=== PATIENT | male | born 1980 | race Caucasian/White ===

== ENCOUNTER 2021-01-27 11:11 | Emergency (ER) | payer MEDICARE ==
[2021-01-27] MEDS ORDERED: AMMONIA AROMATIC INHALANT STA (11:14)
[2021-01-27] MEDS ORDERED: NS 1,000 ML IV ONE (11:15)
[2021-01-27 11:29] LABS: BASO # 0.1 10^3/uL (0.0-0.2); BASO % 0.7 % (0.0-1.0); EOS # 0.8 10^3/uL (0.0-0.5); EOS % 8.2 % (0.0-3.0); HEMOGLOBIN 11.9 g/dl (13.5-17.5); LYMPH # 1.7 10^3/uL (1.5-5.0); LYMPH % 16.9 % (24.0-44.0); MEAN CORPUSCULAR HEMOGLOBIN 28.2 pg (27.0-33.0); MEAN CORPUSCULAR HGB CONC 32.2 g/dl (32.0-36.5); MEAN CORPUSCULAR VOLUME 87.7 fl (80.0-96.0); NEUTROPHILS # 6.4 10^3/uL (1.5-8.5); NEUTROPHILS % 63.5 % (36.0-66.0); PLATELET COUNT, AUTOMATED 218 10^3/uL (150-450); RED BLOOD COUNT 4.22 10^6/uL (4.30-6.10)
--- NOTE | 2021-01-27 11:33 | REP ---
INDICATION: altered ms. COMPARISON: None. TECHNIQUE: Single portable AP view of the chest was performed. FINDINGS: There is no acute infiltrate or pulmonary edema. Lungs are clear. The heart is upper limits of normal in size, not significantly enlarged. The mediastinal silhouette is unremarkable. The visualized osseous structures are intact. IMPRESSION: No acute pulmonary disease. <Electronically signed by Yaw Garcia > 01/27/21 1122
[2021-01-27 12:07] LABS: ALBUMIN 3.4 GM/DL (3.2-5.2); ALT/SGPT 18 U/L (12-78); BILIRUBIN,DIRECT 0.1 MG/DL (0.0-0.2); BILIRUBIN,TOTAL 0.4 MG/DL (0.2-1.0); BLOOD UREA NITROGEN 24 MG/DL (7-18); CALCIUM LEVEL 8.5 MG/DL (8.5-10.1); CARBON DIOXIDE LEVEL 29 MEQ/L (21-32); CHLORIDE LEVEL 105 MEQ/L (98-107); CK-MB VALUE MASS 3.2 NG/ML (<3.6); CPK CREATINE PHOSPHOKINASE 216 U/L (39-308); GLOMERULAR FILTRATION RATE > 60.0 (>60); GLUCOSE, FASTING 207 MG/DL (70-100); MB/CK RELATIVE INDEX 1.48 (< OR =4); POTASSIUM SERUM 4.3 MEQ/L (3.5-5.1); SODIUM LEVEL 141 MEQ/L (136-145); TOTAL PROTEIN 6.3 GM/DL (6.4-8.2); TROPONIN I < 0.02 NG/ML (< 0.10)
--- NOTE | 2021-01-27 12:10 | REP ---
INDICATION: Altered Mental Status. COMPARISON: None. TECHNIQUE: CT brain performed in the axial plane. Coronal reconstruction images are performed. FINDINGS: The ventricles are normal in size and position.. There is no midline shift or mass effect. Garcia-white differentiation is well maintained. There is no acute intracranial hemorrhage or extra-axial fluid collection. There is no fracture of the visualized osseous structures. There is mild air in the visualized superior left orbit. The visualized mastoid air cells and paranasal sinuses are clear. IMPRESSION: No acute intracranial hemorrhage, midline shift or mass effect. Mild air in the visualized superior left orbit. Correlate clinically for any trauma or inflammation of the left orbit. This finding can be caused by something as simple as blowing the nose. <Electronically signed by Yaw Garcia > 01/27/21 [id number]
--- OUTSIDE RECORDS SUMMARY | 2021-01-27 12:43 | CCD ---
Author Author [facility] Organization [facility] Address Unknown Phone Unavailable Care Team Providers Care Scanning Supervisor Name Role Phone Gonsalo Lopez Unavailable PROBLEMS Type Condition ICD9-CM Code [id number] Code Onset Dates Condition S tatus W/U Status Risk SNOMED Code Notes Problem Pure hypercholesterolemia E78.00 Active confirmed 171304046 Problem Moderate episode of recurrent major depressive disorder F33.1 Active confirmed 434854222 Problem Type 2 diabetes mellitus with diabetic chronic kidney disease E11.22 Active confirmed 007154441 Problem Allergy to local anesthetic Z88.4 Active confirmed 147049394 Problem Allergic rhinitis, unspecified seasonality, unspecifie d trigger J30.9 Active confirmed 12441383 Problem Oropharyngeal dysphagia R13.12 Active confirmed 00642512 Problem penitentiary current use of insulin Z79.4 Active conf irmed 187550986 Problem Vitamin D deficiency E55.9 Active confirmed 36324962 Problem Leukocytosis, unspecified type D72.829 Active confi rmed 719439093 Problem Diabetic 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 Active confirmed 79814377 Problem Neuropathy G62.9 Active confirmed 390267048 Problem Lumbar degenerative disc disease M51.36 Active conf irmed 58233278 Problem Urinary incontinence, unspecified type R32 A ctive confirmed 385919060 Problem Venous insufficiency of both lower extremities I87 .2 Active confirmed 482417824 Problem Diabetes E11.9 Active confirmed 196318525 Problem GERD without esophagitis K21.9 Active confirmed 845782467 Problem Pressure injury of buttock, stage 1, unspecified lateralit y L89.301 Active confirmed 32212106486437199 Problem Unspecified retinal disorder H35.9 Active confirme d 54775427 Problem Type 2 diabetes mellitus without complications E11 .9 Active confirmed 14765022 Problem Unspecified disorder of vitreous body H43.9 Ac tive confirmed 119138428 Problem Type 2 diabetes mellitus with hyperglycemia E11.65 Active confirmed 805508776630747 Problem Essential hypertension I10 Active confirmed 81481005 Problem Altered mental status, unspecified altered mental stat us type R41.82 Active confirmed 300349458 Problem Depression, unspecified depression type F32.9 Active confirmed 81356616 Problem Type 2 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.319 Active confirmed 994634036 Problem JAIME (obstructive sleep apnea) G47.33 Active confirm ed 92288734 ALLERGIES Allergen (clinical drug ingredient) Drug/Non Drug Allergy do cumented on EMR Reaction Allergy Type Onset Date Status gabapentin gabapentin(ND Code:[address]-27) Unknown Drug Allergy Active doxycycline Unknown Drug Allergy Active local anesthsia Unknown Non Drug Allergy Act catalina penicillin Unknown Drug Allergy Active codeine codeine(ND Code:[address]-03) Unknown Drug Allergy Active ENCOUNTERS from 1979 to 2021-01-06 Encounter Location Date Provider Diagnosis [facility] Micro Photographer [address] [place] [address] Dec, Gonsalo Lopez Type 2 diabetes adam itus with hyperglycemia E11.65 ; 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.4 and Type 2 diabetes mellitus with diabetic chronic kidney disease E11.22 IMMUNIZATIONS Vaccine Route Administration Date Status COVID-19 - EXTERNAL Unknown August 27, 2020 Administered Tdap IM Intramuscular Nov 05, 2018 Administered Influenza IM Intramuscular Feb 04, 2020 Administered Influenza Unknown May 15, 2019 Refused Influenza Unknown Apr 16, 2019 Refused Influenza Unknown Mar 04, 2019 Refused SOCIAL HISTORY Tobacco Use: Social History Observation Description Date Details (start date - stop date) Never Smoker Sex Assigned At : Social History Observation Description Sex Assigned At Unknown Tobacco Use : Smoking Question Answer Notes Are you a: never smoker Sexual History Question Answer Notes Had sex in the past 12 months(vaginal,oral or anal) Yes Have you ever had an STD? No Use Protection? No Alcohol Smart Form Question Answer Notes Did you have a drink containing alcohol in the past year? No How often did you have six or more drinks on one occas viet in the past year? Never (0 points) Points 0 Interpretation Negative REASON FOR REFERRAL No Information VITAL SIGNS No information MEDICATIONS Medication SIG (Take, Route, Frequency, Duration) Notes Start Da te End Date Status Ozempic (0.25 mg or 0.5 mg dose) 2 mg/1.5 mL 0.25mg bojorquez bcutaneously once a week for 30 day(s) Active Senna S 50 mg-8.6 mg 1 tab(s) orally BID Active DULoxetine 60 mg 1 cap(s) orally once a day for 30 day(s) Active ramipril 5 mg 1 cap(s) orally once a day for 30 day(s) Active gemfibrozil 600 mg 1 tab(s) orally 2 times a day for 30 day(s) Active ketoconazole topical 2% 1 kim applied topically once a day for 14 day (s) Active metFORMIN 500 mg 1 tab(s) orally 2 times a day for 30 day(s) Active omeprazole 20 mg 1 cap(s) orally twice a day 30 mins before breakfast and dinner Active Refresh Dry Eye Therapy A ctive Aspir-Low 81 mg 1 tab(s) orally once a day for 30 day(s) Active FreeStyle Lite Strips NFRS 1 test strip topically 3 ti mes a day and prn - Dx E11.65 for 30 day(s) Dec, Active Pen Needle 31g 6mm - subcutaneously 5 times a day for 30 day(s) Nov, Active Lipitor 10 mg 1 tab(s) orally once a day at bedtime for 30 day(s) Active ZyrTEC 10 mg 1 tab(s) orally once a day for 30 day(s) 08 A 2019 Active Undergarments medium use topically five times daily for 20 days May, Not-Taking ondansetron 4 mg 1 tab(s) orally Q8H PRN for N/V for 5 day(s) Sep, Active ARIPiprazole 2 mg 1 tab(s) orally once a day for 30 day(s) May, Active FRANCISCO STOCKING KNEE HIGH as directed DAILY - Medium Grade - DX Venous Insufficiency for 90 days Mar, Not-Ta nicci Humalog KwikPen 100 units/mL as per sliding scale subc utaneously tid before meals Active Meclizine Hydrochloride 25 mg 1 tab(s) orally once a d ay as needed for motion sickness for 10 day(s) Active Drisdol 50,000 intl units 1 cap(s) orally once a week for 28 day s July, Active Hydrocortisone/Neomycin/Polymyxin B, Otic 1%-0.35%-100 00 units/mL 2 gtt in each affected ear 4 times a day for 7 day(s) May, Unknown Lantus Solostar Pen 100 units/mL 60 units subcutaneously bid for 30 d ays Active ofloxacin otic 0.3% 5 gtt in each affected ear 2 times a day for 10 day(s) Active dorzolamide ophthalmic 2% 1 gtt in each eye BID Active Drisdol 1.25 mg 1 cap(s) orally once a week for 30 day(s) Active latanoprost ophthalmic 0.005% 1 gtt in each eye once a day (in the evening) for 30 day(s) Active acetaZOLAMIDE 250 mg 1 tab(s) orally once a day for 30 day(s) Active PROCEDURES No Information RESULTS No Results REASON FOR VISIT Refills MEDICAL (GENERAL) HISTORY Type Description Date Medical History High Blood Pressure Medical History High Cholesterol Medical History Diabetes Medical History GERD Medical History TIA Medical History Depression Medical History COVID-19 vaccine series completed Medical History Diabetic neuropathy Medical History Peripheral neuropathy Surgical History cholecystectomy Surgical History cholecystectomy 2003 Surgical History circumcision Surgical History circumcision 2007 Surgical History open area from ear removed 2016 Surgical History right ear dr skinner Surgical History Parsplanavictrectomy 09/28/2020 Surgical History Left eye retinal surgery for retinal det achment Hospitalization History dka 04/13/2018 Goals Section No Information Health Concerns No Information MEDICAL EQUIPMENT No Information MENTAL STATUS No Information FUNCTIONAL STATUS No Information ASSESSMENTS Encounter Date Diagnosis Assessment Notes Treatment Notes Treatm ent Clinical Notes Dec, Type 2 diabetes mellitus with hyperglycemia (ICD -10 - E11.65) Dec, penitentiary current use of insulin (ICD-10 - Z79.4 ) Dec, Type 2 diabetes mellitus wit h diabetic chronic kidney disease (ICD- 10 - E11.22) PLAN OF TREATMENT Medication Medication Name Sig Start Date Stop Date FreeStyle Lite Strips NFRS 1 test strip topically 3 ti mes a day and prn - Dx E11.65 for 30 day(s) Dec, Next Appt Details Provider Name:Gonsalo Lopez, 2021-01-0 5 02:15:00 PM, [address] [place], [address], Provider Name:Anne Hoffmann, 2021-07-25 0 1:00:00 PM, [address] [place], [address], Insurance Providers Payer Name Payer Address Payer Phone Insured Name Patient Relati onship to Insured Coverage Start Date Coverage End Date [employer] [address] [facility] [address] JARAD FINLEY MEDICARE PRIMARY [facility] [address] [facility] [address] JARAD FINLEY
--- OUTSIDE RECORDS SUMMARY | 2021-01-27 12:43 | CCD ---
Author Author [facility] Organization [facility] Address Unknown Phone Unavailable Care Team Providers Care Coagulating Bath Operator Name Role Phone Gideon Reed Unavailable PROBLEMS Type Condition ICD9-CM Code XNA87-TH Code Onset Dates Condition S tatus W/U Status Risk SNOMED Code Notes Problem Bilateral sensorineural hearing loss H90.3 Act catalina confirmed 258343956 ALLERGIES Allergen (clinical drug ingredient) Drug/Non Drug Allergy do cumented on EMR Reaction Allergy Type Onset Date Status Codeine Phosphate([facility] Code:[address]-68) Unknown Drug Allergy Active Penicillin G Benzathine Unknown Drug Allergy Active Local anethesia Unknown Non Drug Allergy Act catalina ENCOUNTERS from 1979 to 2021-01-05 Encounter Location Date Provider Diagnosis [facility] [address] [facility] [address] [place] [address] Dec, Gideon Reed Bilateral sensorineu ral hearing loss H90.3 IMMUNIZATIONS No Information SOCIAL HISTORY Tobacco Use: Social History Observation Description Date Details (start date - stop date) Never Smoker Sex Assigned At : Social History Observation Description Sex Assigned At Unknown Tobacco Use/Smoking Question Answer Notes Patient is a never smoker REASON FOR REFERRAL No Information VITAL SIGNS Height 66 in Dec, Height-cm 167.64 cm Dec, Weight 200 lbs Dec, Weight-kg 90.72 kg Dec, BMI 32.28 kg/m2 Dec, Temperature 98.1 degrees Fahrenheit Dec, MEDICATIONS Medication SIG (Take, Route, Frequency, Duration) Notes Start Da te End Date Status Aspir-81 81 MG 1 tablet Orally Once a day Active Lantus 100 UNIT/ML Subcutaneous Act catalina DULoxetine HCl 30 MG 1 capsule Orally Once a day Active Lipitor 10 MG 1 tablet Orally Once a day for 30 day(s) Active HumaLOG 100 UNIT/ML Subcutaneous Ac tive Drisdol 1.25 MG (89410 UT) 1 capsule Orally for 30 day(s) Active ZyrTEC Allergy 10 MG 1 capsule Orally Once a day for 30 day(s) Active Meclizine HCl 25 MG 1 tablet as needed Orally Once a day for 30 day(s ) Active metFORMIN HCl 500 MG 1 tablet with meals Orally Twice a day Active Gemfibrozil 600 MG 1 tablet 30 minutes before m orning and evening meals Orally Twice a day for 30 day(s) Active Ramipril 5 MG 1 capsule Orally Once a day Active Dorzolamide HCl-Timolol Mal 22.3-6.8 MG/ML 1 drop into affected eye Ophthalmic Twice a day Active Ondansetron 4 MG 1 tablet on the tongue and a llow to dissolve Orally Once a day for 30 day(s) Active Omeprazole 20 MG 1 capsule 30 minutes before morning meal Orally Once a day for 30 day(s) Active ARIPiprazole 2 MG 1 tablet Orally Once a day for 30 day(s) Active Ozempic (1 MG/DOSE) 2 MG/1.5ML as directed Subcutaneous Active PROCEDURES No Information RESULTS No Results REASON FOR VISIT hearing MEDICAL (GENERAL) HISTORY Type Description Date Surgical History No Surgical history information Goals Section No Information Health Concerns No Information MEDICAL EQUIPMENT No Information MENTAL STATUS No Information FUNCTIONAL STATUS No Information ASSESSMENTS Encounter Date Diagnosis Assessment Notes Treatment Notes Treatm ent Clinical Notes Dec, Bilateral sensorineural hearing loss (ICD-10 - H 90.3) PLAN OF TREATMENT Next Appt Details prn Reason: Insurance Providers Payer Name Payer Address Payer Phone Insured Name Patient Relati onship to Insured Coverage Start Date Coverage End Date Medicaid [address] [facility] [phone] Bhumi Finley R self Medicare [address] [facility] [address] Karen Finley self
--- OUTSIDE RECORDS SUMMARY | 2021-01-27 12:43 | CCD ---
Author Author [facility] Organization [facility] Address Unknown Phone Unavailable Care Team Providers Care Raw Stock Dyeing Machine Tender Name Role Phone Gonsalo Lopez Unavailable PROBLEMS Type Condition ICD9-CM Code [id number] Code Onset Dates Condition S tatus W/U Status Risk SNOMED Code Notes Problem Pure hypercholesterolemia E78.00 Active confirmed 546916816 Problem Moderate episode of recurrent major depressive disorder F33.1 Active confirmed 532459060 Problem Type 2 diabetes mellitus with diabetic chronic kidney disease E11.22 Active confirmed 774671398 Problem Allergy to local anesthetic Z88.4 Active confirmed 565057901 Problem Allergic rhinitis, unspecified seasonality, unspecifie d trigger J30.9 Active confirmed 29544102 Problem Oropharyngeal dysphagia R13.12 Active confirmed 19850864 Problem half-way current use of insulin Z79.4 Active conf irmed 495828616 Problem Vitamin D deficiency E55.9 Active confirmed 91113063 Problem Leukocytosis, unspecified type D72.829 Active confi rmed 079802345 Problem Diabetic 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 Active confirmed 54136406 Problem Neuropathy G62.9 Active confirmed 910495595 Problem Lumbar degenerative disc disease M51.36 Active conf irmed 47454440 Problem Urinary incontinence, unspecified type R32 A ctive confirmed 294945430 Problem Venous insufficiency of both lower extremities I87 .2 Active confirmed 612463603 Problem Diabetes E11.9 Active confirmed 748927432 Problem GERD without esophagitis K21.9 Active confirmed 599749487 Problem Pressure injury of buttock, stage 1, unspecified lateralit y L89.301 Active confirmed 08185572314115444 Problem Unspecified retinal disorder H35.9 Active confirme d 50683594 Problem Type 2 diabetes mellitus without complications E11 .9 Active confirmed 27805441 Problem Unspecified disorder of vitreous body H43.9 Ac tive confirmed 530720608 Problem Type 2 diabetes mellitus with hyperglycemia E11.65 Active confirmed 022268736528767 Problem Essential hypertension I10 Active confirmed 00928378 Problem Altered mental status, unspecified altered mental stat us type R41.82 Active confirmed 242691793 Problem Depression, unspecified depression type F32.9 Active confirmed 36699735 Problem Type 2 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.319 Active confirmed 764541447 Problem JAIME (obstructive sleep apnea) G47.33 Active confirm ed 17200890 ALLERGIES Allergen (clinical drug ingredient) Drug/Non Drug Allergy do cumented on EMR Reaction Allergy Type Onset Date Status gabapentin gabapentin(ND Code:[address]-73) Unknown Drug Allergy Active doxycycline Unknown Drug Allergy Active local anesthsia Unknown Non Drug Allergy Act catalina penicillin Unknown Drug Allergy Active codeine codeine(ND Code:[address]-89) Unknown Drug Allergy Active ENCOUNTERS from 1979 to 2021-01-17 Encounter Location Date Provider Diagnosis [facility] Hand Dry Cleaner [address] [place] [address] Dec, Gonsalo Lopez IMMUNIZATIONS Vaccine Route Administration Date Status COVID-19 [...] once a day for 30 day(s) 08 2019 Active Undergarments medium use topically five [...] Information RESULTS No Results REASON FOR VISIT [employer] Orders MEDICAL (GENERAL) HISTORY Type Description Date Medical [...] No Information FUNCTIONAL STATUS No Information ASSESSMENTS No Information PLAN OF TREATMENT Medication Medication Name Sig Start Date Stop Date FreeStyle Lite Strips NFRS 1 test strip topically 3 ti mes a day and prn - Dx E11.65 for 30 day(s) Dec, Next Appt Details Provider Name:Gonsalo Lopez, 5 02:15:00 PM, [address] [place], [address], Provider Name:Anne Hoffmann, 2021-07-25 0 1:00:00 PM, [address] [place], [address], Insurance Providers Payer Name Payer Address Payer Phone Insured Name Patient Relati onship to Insured Coverage Start Date Coverage End Date MEDICARE PRIMARY RHC [address] [place] [address] JARAD FINLEY [employer] [address] [facility] [address] JARAD FINLEY
--- OUTSIDE RECORDS SUMMARY | 2021-01-27 12:43 | CCD ---
Author Author [facility] Organization [facility] Address Unknown Phone Unavailable Care Team Providers Care Sales Product Manager Name Role Phone Gonsalo Lopez Unavailable PROBLEMS Type Condition ICD9-CM Code QQJ18-LP Code Onset Dates Condition S tatus W/U Status Risk SNOMED Code Notes Problem Pure hypercholesterolemia E78.00 Active confirmed 219850833 Problem Moderate episode of recurrent major depressive disorder F33.1 Active confirmed 757582613 Problem Type 2 diabetes mellitus with diabetic chronic kidney disease E11.22 Active confirmed 076205602 Problem Allergy to local anesthetic Z88.4 Active confirmed 095195047 Problem Allergic rhinitis, unspecified seasonality, unspecifie d trigger J30.9 Active confirmed 99743312 Problem Oropharyngeal dysphagia R13.12 Active confirmed 18320009 Problem long-term current use of insulin Z79.4 Active conf irmed 698593043 Problem Vitamin D deficiency E55.9 Active confirmed 16418182 Problem Leukocytosis, unspecified type D72.829 Active confi rmed 161680627 Problem Diabetic 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 Active confirmed 59256811 Problem Neuropathy G62.9 Active confirmed 031157181 Problem Lumbar degenerative disc disease M51.36 Active conf irmed 51301722 Problem Urinary incontinence, unspecified type R32 A ctive confirmed 743886862 Problem Venous insufficiency of both lower extremities I87 .2 Active confirmed 243938092 Problem Diabetes E11.9 Active confirmed 869991754 Problem GERD without esophagitis K21.9 Active confirmed 569654748 Problem Pressure injury of buttock, stage 1, unspecified lateralit y L89.301 Active confirmed 91188120699353638 Problem Unspecified retinal disorder H35.9 Active confirme d 32826549 Problem Type 2 diabetes mellitus without complications E11 .9 Active confirmed 85370899 Problem Unspecified disorder of vitreous body H43.9 Ac tive confirmed 485402264 Problem Type 2 diabetes mellitus with hyperglycemia E11.65 Active confirmed 483517362765400 Problem Essential hypertension I10 Active confirmed 50578248 Problem Altered mental status, unspecified altered mental stat us type R41.82 Active confirmed 389276428 Problem Depression, unspecified depression type F32.9 Active confirmed 21021290 Problem Type 2 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.319 Active confirmed 283981620 Problem JAIME (obstructive sleep apnea) G47.33 Active confirm ed 96217698 ALLERGIES Allergen (clinical drug ingredient) Drug/Non Drug Allergy do cumented on EMR Reaction Allergy Type Onset Date Status gabapentin gabapentin(ND Code:[address]-90) Unknown Drug Allergy Active doxycycline Unknown Drug Allergy Active local anesthsia Unknown Non Drug Allergy Act catalina penicillin Unknown Drug Allergy Active codeine codeine(ND Code:[address]-17) Unknown Drug Allergy Active ENCOUNTERS from 1979 to 2021-01-06 Encounter Location Date Provider Diagnosis [facility] Pipelines Laborer [address] [place] [address] Dec, Gonsalo Lopez IMMUNIZATIONS Vaccine Route Administration [...] Information RESULTS No Results REASON FOR VISIT Message MEDICAL (GENERAL) HISTORY Type Description Date Medical [...] Provider Name:Gonsalo Lopez, 5 02:15:00 PM, [address] [place], [address], Provider Name:Anne Hoffmann, 2021-07-25 0 1:00:00 PM, [address] [place], [address], Insurance Providers Payer Name Payer Address Payer Phone Insured Name Patient Relati onship to Insured Coverage Start Date Coverage End Date MEDICARE PRIMARY RHC [address] [facility] [address] JARAD FINLEY [employer] [address] [facility] [address] JARAD FINLEY
--- OUTSIDE RECORDS SUMMARY | 2021-01-27 12:44 | CCD ---
Author Author [facility] Organization [facility] Address Unknown Phone Unavailable Care Team Providers Care Ceramic Products Sales Engineer Name Role Phone Gonsalo Lopez Unavailable PROBLEMS Type Condition ICD9-CM Code TKS18-ZZ Code Onset Dates Condition S tatus W/U Status Risk SNOMED Code Notes Problem Pure hypercholesterolemia E78.00 Active confirmed 390623661 Problem Moderate episode of recurrent major depressive disorder F33.1 Active confirmed 840443282 Problem Type 2 diabetes mellitus with diabetic chronic kidney disease E11.22 Active confirmed 552883796 Problem Allergy to local anesthetic Z88.4 Active confirmed 918762324 Problem Allergic rhinitis, unspecified seasonality, unspecifie d trigger J30.9 Active confirmed 50610738 Problem Oropharyngeal dysphagia R13.12 Active confirmed 72975224 Problem halfway current use of insulin Z79.4 Active conf irmed 265755852 Problem Vitamin D deficiency E55.9 Active confirmed 86119517 Problem Leukocytosis, unspecified type D72.829 Active confi rmed 054759036 Problem Diabetic 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 Active confirmed 57209806 Problem Neuropathy G62.9 Active confirmed 935335492 Problem Lumbar degenerative disc disease M51.36 Active conf irmed 56865200 Problem Urinary incontinence, unspecified type R32 A ctive confirmed 474576850 Problem Venous insufficiency of both lower extremities I87 .2 Active confirmed 283239057 Problem Diabetes E11.9 Active confirmed 635012913 Problem GERD without esophagitis K21.9 Active confirmed 736858400 Problem Pressure injury of buttock, stage 1, unspecified lateralit y L89.301 Active confirmed 99464606449040440 Problem Unspecified retinal disorder H35.9 Active confirme d 98560465 Problem Type 2 diabetes mellitus without complications E11 .9 Active confirmed 52103257 Problem Unspecified disorder of vitreous body H43.9 Ac tive confirmed 652462498 Problem Type 2 diabetes mellitus with hyperglycemia E11.65 Active confirmed 592294709992065 Problem Essential hypertension I10 Active confirmed 71986120 Problem Altered mental status, unspecified altered mental stat us type R41.82 Active confirmed 849401610 Problem Depression, unspecified depression type F32.9 Active confirmed 61804742 Problem Type 2 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.319 Active confirmed 216771203 Problem JAIME (obstructive sleep apnea) G47.33 Active confirm ed 00045147 ALLERGIES Allergen (clinical drug ingredient) Drug/Non Drug Allergy do cumented on EMR Reaction Allergy Type Onset Date Status gabapentin gabapentin(ND Code:[address]-87) Unknown Drug Allergy Active doxycycline Unknown Drug Allergy Active local anesthsia Unknown Non Drug Allergy Act catalina penicillin Unknown Drug Allergy Active codeine codeine(ND Code:[address]-23) Unknown Drug Allergy Active ENCOUNTERS from 1979 to 2020-12-21 Encounter Location Date Provider Diagnosis [facility] [address] [place] [address] Nov, Gonsalo Lopez IMMUNIZATIONS Vaccine Route Administration Date [...] Notes Start Da te End Date Status Undergarments medium use topically five times daily for 20 days May, Not-Taking ARIPiprazole 2 mg 1 tab(s) orally once a day for 30 day(s) May, Active FRANCISCO STOCKPIOTR KNEE HIGH as directed DAILY - Medium Grade - DX Venous Insufficiency for 90 days Mar, Not-Ta Drisdol 50,000 intl units 1 cap(s) orally once a week for 28 day s July, Active ramipril 5 mg 1 cap(s) orally once a day for 30 day(s) Active ZyrTEC 10 mg 1 tab(s) orally once a day for 30 day(s) 2019 Active Lipitor 10 mg 1 tab(s) orally once a day at bedtime for 30 day(s) Active omeprazole 20 mg 1 cap(s) orally twice a day 30 mins before breakfast and dinner Active Lantus Solostar Pen 100 units/mL 60 units subcutaneously bid for 30 d ays Active Aspir-Low 81 mg 1 tab(s) orally once a day for 30 day(s) Active Meclizine Hydrochloride 25 mg 1 tab(s) orally once a d ay as needed for motion sickness for 10 day(s) Active gemfibrozil 600 mg 1 tab(s) orally 2 times a day for 30 day(s) Active Hydrocortisone/Neomycin/Polymyxin B, Otic 1%-0.35%-100 00 units/mL 2 gtt in each affected ear 4 times a day for 7 day(s) May, Unknown DULoxetine 60 mg 1 cap(s) orally once a day for 30 day(s) Active dorzolamide ophthalmic 2% 1 gtt in each eye BID Active Humalog KwikPen 100 units/mL as per sliding scale subc utaneously tid before meals Active metFORMIN 500 mg 1 tab(s) orally 2 times a day for 30 day(s) Active Ozempic (0.25 mg or 0.5 mg dose) 2 mg/1.5 mL 0.25mg bojorquez bcutaneously once a week for 30 day(s) Active latanoprost ophthalmic 0.005% 1 gtt in each eye once a day (in the evening) for 30 day(s) Active Pen Needle 31g 6mm - subcutaneously 5 times a day for 30 day(s) Nov, Active ondansetron 4 mg 1 tab(s) orally Q8H PRN for N/V for 5 day(s) Sep, Active ofloxacin otic 0.3% 5 gtt in each affected ear 2 times a day for 10 day(s) Active ketoconazole topical 2% 1 kim applied topically once a day for 14 day (s) Active Drisdol 1.25 mg 1 cap(s) orally once a week for 30 day(s) Active acetaZOLAMIDE 250 mg 1 tab(s) orally once a day for 30 day(s) Active Refresh Dry Eye Therapy A ctive PROCEDURES No Information RESULTS No Results REASON [...] Medication Name Sig Start Date Stop Date omeprazole 20 mg 1 cap(s) orally twice a day 30 mins before breakfast and dinner Pen Needle 31g 6mm - subcutaneously 5 times a day for 30 day(s) Nov, Next Appt Details Provider Name:Gonsalo Lopez, 2020-12-0 5 02:15:00 PM, [address] [place], [address], Provider Name:Anne Hoffmann, 2021-07-25 0 1:00:00 PM, [address] [place], [address], Insurance Providers Payer Name Payer Address Payer Phone Insured Name Patient Relati onship to Insured Coverage Start Date Coverage End Date [employer] [address] [place] [phone] JARAD FINLEY MEDICARE PRIMARY [facility] [address] [facility] [phone] JARAD FINLEY
--- OUTSIDE RECORDS SUMMARY | 2021-01-27 12:44 | CCD | Summary of Care ---
Author Author [facility] Organization [facility] Address Unknown Phone Unavailable Care Team Providers Care Skid Machine Operator Name Role Phone King Trinidad Shaye DO PCP Reason for Visit * Reason Comments Diabetic Retinopathy Encounter Details Care Team Description Date Type Department Brea Kinsey MD [address] [place] [phone] Ocular hypertension of right eye (Primar y Dx) 10/31/2020 Office Visit [facility] [address] [place] [phone] Allergies Comments Active Allergy Reactions Severity Noted Date Povidone Iodine 09/12/2020 Codeine 09/12/2020 Gabapentin 09/12/2020 Empagliflozin 09/12/2020 Latex 09/12/2020 Local Anesthesia Other 09/12/2020 Penicillins 09/12/2020 documented as of this encounter (statuses as of 10/31/2020) Medications End Date Status Medication Sig Dispensed Refills Start Date Active Insulin Lispro 100 Inject into 0 UNIT/ML Subcutaneous the skin Solution (HumaLOG) Three times daily before meals Active Aspirin 81 MG Oral Tablet Take 81 mg by 0 Delayed Release mouth every morning Active Gemfibrozil 600 MG Oral Take 600 mg 0 Tablet (LOPID) by mouth Two times daily before breakfast and dinner Active metFORMIN HCl 500 MG Oral Take 500 mg 0 Tablet (GLUCOPHAGE) by mouth Two times daily with meals Active Insulin Glargine (LANTUS Inject 60 0 SC) Units/mL into the skin Two Times Daily Active ARIPiprazole 2 MG Oral Take 2 mg by 0 Tablet (ABILIFY) mouth every morning Active Ergocalciferol 1.25 MG Take 50,000 0 (60266 UT) Oral Capsule Units by (Drisdol) mouth once a week Active Ramipril 5 MG Oral Take 5 mg by 0 Capsule (ALTACE) mouth every morning Active DULoxetine HCl 60 MG Oral Take 60 mg by 0 Capsule Delayed Release mouth every Particles (CYMBALTA) morning Active Atorvastatin Calcium 10 Take 10 mg by 0 MG Oral Tablet (LIPITOR) mouth every evening Active Omeprazole 20 MG Oral Take 20 mg by 0 Capsule Delayed Release mouth Two (PriLOSEC) Times Daily Active Cetirizine HCl 10 MG Oral Take 10 mg by 0 Tablet (ZYRTEC) mouth every morning Active Ozempic (0.25 or 0.5 Inject into 0 MG/DOSE) 2 MG/1.5ML the skin Subcutaneous Solution Pen-injector (semaglutide) Active Meclizine HCl 25 MG Oral Take 25 mg by 0 Tablet (ANTIVERT) mouth Three times daily as needed 10/09/2021 Active Brimonidine Tartrate 0.2 Place 1 drop 5 mL 5 % Ophthalmic Solution into the 1 (ALPHAGAN) right eye Three times daily 10/09/2021 Active Dorzolamide HCl-Timolol Place 1 drop 10 mL 5 0 Mal 22.3-6.8 MG/ML into the 1 Ophthalmic Solution right eye Two (Cosopt) Times Daily 10/16/2021 Active Latanoprost 0.005 % Place 1 drop 2.5 mL 2 10/17 Ophthalmic Solution into the 1 (XALATAN) right eye nightly 11/16/2020 Active acetaZOLAMIDE 250 MG Oral Take 1 tablet 120 tablet 0 Tablet (DIAMOX) by mouth Four 1 times daily 10/30/[address] 1 drop 30 mL 12 Sodium 1 % Ophthalmic into both 1 Solution eyes Four times daily Status Hospital, Clinic, or Ordered Dose Route Frequency Start End Date Other Facility Date Administered Medication Active proparacaine (ALCAINE) 1 drop Both Eyes Once 10/18/19 0.5 % ophthalmic solution 21 1 1 drop Ended tropicamide (MYDRIACYL) 1 1 drop Both Eyes Once 11/01/19 % ophthalmic solution 1 21 1 drop Ended phenylephrine (MYDFRIN) 1 drop Both Eyes Once 11/01/19 2.5 % ophthalmic solution 21 1 1 drop Ended proparacaine (ALCAINE) 1 drop Both Eyes Once 11/01/19 0.5 % ophthalmic solution 21 1 1 drop documented as of this encounter (statuses as of 10/31/2020) Active Problems No known active problemsdocumented as of this encounter (statuses as of 10/31/2020) Social History Date Tobacco Use Types Packs/Day Years Used Never Smoker Smokeless Tobacco: Never Used Comments Alcohol Use Standard Drinks/Week Never 0 (1 standard drink = 0.6 o z pure alcohol) Alcohol Habits Answer Date Recorded How often do you have a drink containing alcohol? Never 09/28/2020 How many drinks containing alcohol do you have on No t asked a typical day when you are drinking? How often do you have six or more drinks on one Not asked occasion? Sex Assigned at Date Recorded Not on file Date Recorded COVID-19 Exposure Response 10/31/2020 9:25 AM EDT In the last month, have you been in contact with No / Unsure someone who was confirmed or suspected to have Coronavirus / COVID-19? documented as of this encounter Last Filed Vital Signs Not on filedocumented in this encounter Patient Instructions * Patient Instructions* Dutch Burgos MD - 10/31/2020 9:00 AM EDT Please follow the physician's instructions as communicated during the office vis it. Medications should be taken/given as prescribed or recommended by the physic patsy. Please keep the follow-up appointment as recommended by the physician and r eturn sooner if any changes, questions, or concerns arise. documented in this encounter Progress Notes * Dutch Burgos MD - 10/31/2020 9:00 AM EDT Chief Complaint Patient presents with Diabetic Retinopathy HPI LV 10/17/20 BS 102 today Pt presents for 2 wk f/u for DFE and IOP check Pt reports he feels his VA has gotten better since last visit Pt denies ocular pain, no new flashes or floaters HX:DM PDR OU /TRD OU Current meds: Pred Forte OD BID Brimonidine OD TID Cosopt OD BID Diamox 250mg PO TID Latanoprost at bedtime OD Last edited by Vikas Donahue on 10/31/2020 9:45 AM. (History) History: Patient's medications, allergies, past medical, surgical, social, and f amily histories were reviewed and updated as appropriate. OPHTH Exam: Base Eye Exam Visual Acuity (Snellen - Linear) Right Left Dist sc CF@1ft LP Tonometry (Tonopen, 9:48 AM) Right Left Pressure 14 4 Pupils Dark APD Right 5 None Left 4 None Visual Carter Left Right Restrictions Total superior temporal, inferior temporal, superior nasal, inferi or nasal deficiencies Partial outer superior temporal, inferior temporal, superi or nasal, inferior nasal deficiencies Extraocular Movement Right Left Full Full Neuro/Psych Oriented x3: Yes Mood/Affect: Normal Dilation Both eyes: 1.0% Tropicamide/2.5% Phenylephrine @ 9:48 AM Slit Lamp and Fundus Exam External Exam Right Left External Normal Normal Slit Lamp Exam Right Left Lids/Lashes Normal Normal Conjunctiva/Sclera CANDELARIA White and Quiet Cornea Epi furrowing, shagreen Vertical striae, shagreen, epi furrowing; inferi or KP Anterior Chamber Trace pigment Deep and Quiet Iris Flat, Round Flat, Round Lens 1-2+ NS, 1+ PSC 1-2+ NS, PS 360 Vitreous s/p VTX, SiO fill Heme Fundus Exam Right Left Disc NVD, sharp and pallor to best view Macula large inferior retinal and preretinal hemorrhage Vessels Vascular attenuation Periphery attached, pre-retinal heme, PRP scar We administered tropicamide, phenylephrine, and proparacaine. The following tests were performed today and reviewed with the patient (for the professional interpretation refer to the Oph Proc tab in chart review): DX/Plan: Reddy Finley is a 40 y.o. male with: # DM PDR OU Diagnosed >20 years ago Last A1c 13 approximately 05/[address] Zacarias Per patient Mariano attempted PRP but unable to tolerate Received injections previously Last visit with RVS ?March 2020 Decrease in vision OU suddenly a few months ago It appears he has not been getting latanoprost Feeling dizzy # TRD OU S/p PPV/MP/EL/SO OD on 09/28/20 Patient is comfortable IOP decreased to 34, no oil in AC, angle open Retina attached Plan: - Continue Predforte BID OD with taper every 5 days - Continue Xalatan qHS OD -Start artificial tears QID OU - Continue brimonidine right eye (purple top) 3x daily - Continue Cosopt right eye (blue top) 2x daily - Decrease to Diamox 250mg BID - Keep eye shield overnight - Avoid heavy activity/heavy lifting until next visit - Patient to call with any change, concern, or new ophthalmic or eye related iss ues. - F/u in 4 weeks for IOP check, DFE Counseling provided for the following issues, either verbally and/or hand-out: D iabetic Eye Exam Dilated eye exam completed. Diabetes and diabetic eye disease d /w pt at length, including potential for vision loss, as well as available ophth almic treatment options. Optimization of risk factors, including blood sugar, b lood pressure, and lipids was recommended. SPACE Seen with BREA Eid Patient to call with any change, concern, or new ophthalmic or eye related issue s. F/U: Return in about 7 weeks (around 12/20/2020) for Retina clinic, DFE. Dilate yes Dutch Burgos M.D. Resident's history reviewed, patient interviewed and examined. I agree. On exam I find: IOP improved OD, VA improved C/w MTMT for glaucoma , Diamox BID Needs to evaluate OS for possible preop next visit In discussions with the patient, I emphasized the long-term risk to vision from her diabetes and the importance of strict glycemic control, blood pressure contr ol, along with regular eye examinations to detect diabetic retinopathy at an ear ly stage to prevent vision loss. Assessment and plan reviewed with resident. Amelie Peter Amirfarbod, MD PhD, agree with the diagnosis and treatment plan a s documented by the resident. Brea Kinsey MD PhD documented in this encounter Plan of Treatment Care Team Description Date Type Specialty 12/15/2020 Office Visit Ophthalmology Health Maintenance Due Date Last Done Comments MMR Vaccines ( - 07/04/1980 Standard series) Varicella Vaccines (07/04/1980 2 - 2-dose childhood series) DTaP,Tdap,and Td Vaccines 07/04/1986 (1 - Tdap) HIV Screening 07/04/1992 Hepatitis B Vaccines (1 07/04/1998 of 3 - Risk 3-dose series) Influenza Vaccine 12/30/2020 Pneumococcal Vaccine: 65+ 07/04/2044 Years (1 of 1 - PPSV23) HIB Vaccines Aged Out No longer eligible based on patient's age to complete this topic Hepatitis A Vaccines Aged Out No longer eligibl e based on patient's age to complete this topic IPV Vaccines Aged Out No longer eligible based on patient's age to complete this topic Pneumococcal Vaccine: Aged Out No longer eligib le based on patient's age to Pediatrics (0 to 5 Years) complete this topic and At-Risk Patients (6 to 64 Years) documented as of this encounter Results Not on filedocumented in this encounter Visit Diagnoses Diagnosis Ocular hypertension of right eye - Prim yohan Borderline glaucoma with ocular hyperte nsion documented in this encounter Administered Medications Action Date Dose Rate Site Medication Order MAR Action 10/31/2020 9:50 AM EDT 1 drop phenylephrine (MYDFRIN) 2.5 % ophthalmic Given solution 1 drop 1 drop, Both Eyes, Once, On Sat10/31/20 at 0945, For 1 dose 10/31/2020 9:50 AM EDT 1 drop proparacaine (ALCAINE) 0.5 % ophthalmic Given solution 1 drop 1 drop, Both Eyes, Once, On Sat10/31/20 at 0945, For 1 dose 10/31/2020 9:50 AM EDT 1 drop tropicamide (MYDRIACYL) 1 % ophthalmic Given solution 1 drop 1 drop, Both Eyes, Once, On Sat10/31/20 at 0945, For 1 dose documented in this encounter
--- OUTSIDE RECORDS SUMMARY | 2021-01-27 12:44 | CCD ---
Author Author [facility] Organization [facility] Address Unknown Phone Unavailable Care Team Providers Care Interventional Radiology Technologist Name Role Phone Gonsalo Lopez Unavailable PROBLEMS Type Condition ICD9-CM Code AYJ18-SU Code Onset Dates Condition S tatus W/U Status Risk SNOMED Code Notes Problem Allergy to local anesthetic Z88.4 Active confirmed 966107302 Problem Vitamin D deficiency E55.9 Active confirmed 30260489 Problem Essential hypertension I10 Active confirmed 99067253 Problem Oropharyngeal dysphagia R13.12 Active confirmed 02142159 Problem Urinary incontinence, unspecified type R32 A ctive confirmed 034287282 Problem Moderate episode of recurrent major depressive disorder F33.1 Active confirmed 306660979 Problem detention current use of insulin Z79.4 Active conf irmed 016927022 Problem Diabetic 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 Active confirmed 16847825 Problem Pure hypercholesterolemia E78.00 Active confirmed 680364273 Problem Lumbar degenerative disc disease M51.36 Active conf irmed 39124359 Problem Leukocytosis, unspecified type D72.829 Active confi rmed 261693382 Problem Neuropathy G62.9 Active confirmed 337633983 Problem Venous insufficiency of both lower extremities I87 .2 Active confirmed 506757180 Problem Allergic rhinitis, unspecified seasonality, unspecifie d trigger J30.9 Active confirmed 45384267 Problem Diabetes E11.9 Active confirmed 829492201 Problem GERD without esophagitis K21.9 Active confirmed 158330149 Problem Type 2 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.319 Active confirmed 897529906 Problem Type 2 diabetes mellitus with diabetic chronic kidney disease E11.22 Active confirmed 302981613 Problem JAIME (obstructive sleep apnea) G47.33 Active confirm ed 38195484 Problem Type 2 diabetes mellitus without complications E11 .9 Active confirmed 40928249 Problem Type 2 diabetes mellitus with hyperglycemia E11.65 Active confirmed 873836190529430 Problem Pressure injury of buttock, stage 1, unspecified lateralit y L89.301 Active confirmed 03558170828158531 Problem Altered mental status, unspecified altered mental stat us type R41.82 Active confirmed 502535156 Problem Gastroesophageal reflux disease without esophagitis K21.9 Active confirmed 260410789 Problem Depression, unspecified depression type F32.9 Active confirmed 28744059 ALLERGIES Allergen (clinical drug ingredient) Drug/Non Drug Allergy do cumented on EMR Reaction Allergy Type Onset Date Status gabapentin gabapentin(ND Code:[address]-44) Unknown Drug Allergy Active doxycycline Unknown Drug Allergy Active local anesthsia Unknown Non Drug Allergy Act catalina penicillin Unknown Drug Allergy Active codeine codeine(ND Code:[address]-88) Unknown Drug Allergy Active ENCOUNTERS from 1979 to 2020-11-10 Encounter Location Date Provider Diagnosis [facility] [place] Techn[employer] [address] [place] [address] Oct, Gonsalo Lopez IMMUNIZATIONS Vaccine Route Administration Date [...] Notes Start Da te End Date Status Meclizine Hydrochloride 25 mg 1 tab(s) orally once a d ay as needed for motion sickness for 10 day(s) July, Active ARIPiprazole 2 mg 1 tab(s) orally once a day for 30 day(s) May, Active ondansetron 4 mg 1 tab(s) orally Q8H PRN for N/V for 5 day(s) Sep, Active ramipril 5 mg 1 cap(s) orally once a day for 30 day(s) Active Lantus Solostar Pen 100 units/mL 60 units subcutaneously bid for 30 d ays Active Aspir-Low 81 mg 1 tab(s) orally once a day for 30 day(s) Active Humalog KwikPen 100 units/mL as per sliding scale subc utaneously tid before meals Active gemfibrozil 600 mg 1 tab(s) orally 2 times a day for 30 day(s) Active ZyrTEC 10 mg 1 tab(s) orally once a day for 30 day(s) 08 2019 Active ofloxacin otic 0.3% 5 gtt in each affected ear 2 times a day for 10 day(s) Active DULoxetine 60 mg 1 cap(s) orally once a day for 30 day(s) Active FRANCISCO STOCKING KNEE HIGH as directed DAILY - Medium Grade - DX Venous Insufficiency for 90 days Mar, Not-Ta nicci Undergarments medium use topically five times daily for 20 days May, Not-Taking Hydrocortisone/Neomycin/Polymyxin B, Otic 1%-0.35%-100 00 units/mL 2 gtt in each affected ear 4 times a day for 7 day(s) May, Unknown metFORMIN 500 mg 1 tab(s) orally 2 times a day for 30 day(s) Active omeprazole 20 mg 1 cap(s) orally twice a day 30 mins before breakfast and dinner for 30 day(s) Active Drisdol 50,000 intl units 1 cap(s) orally once a week for 28 day s July, Active Ozempic (0.25 mg or 0.5 mg dose) 2 mg/1.5 mL 0.25mg bojorquez bcutaneously once a week for 30 day(s) Active Lipitor 10 mg 1 tab(s) orally once a day at bedtime for 30 day(s) Active PROCEDURES No Information RESULTS No Results REASON FOR VISIT Message MEDICAL (GENERAL) HISTORY Type Description Date Medical History High Blood Pressure Medical History High Cholesterol Medical History Diabetes Medical History GERD Medical History TIA Medical History Depression Medical History COVID-19 vaccine series completed Surgical History cholecystectomy Surgical History cholecystectomy 2003 Surgical History circumcision Surgical History circumcision 2007 Surgical History open area from ear removed [address] ear [address] skinner Surgical History Parsplanavictrectomy 09/28/2020 Hospitalization History dka 04/13/2018 Goals Section No Information Health Concerns No Information MEDICAL EQUIPMENT No Information MENTAL STATUS No Information FUNCTIONAL STATUS No Information ASSESSMENTS No Information PLAN OF TREATMENT Next Appt Details Provider Name:Anne Tahira, 2020-11-28 1 1:00:00 AM, [address] [place] [address], [phone], Provider Name:Gonsalo Lopez, 5 02:15:00 PM, [address] [place] [address], [phone], Insurance Providers Payer Name Payer Address Payer Phone Insured Name Patient Relati onship to Insured Coverage Start Date Coverage End Date [employer]PUT[employer]ENCE [address] [facility] [phone] JARAD FINLEY MEDICARE PRIMARY [facility] [address] [facility] [phone] JARAD FINLEY
--- OUTSIDE RECORDS SUMMARY | 2021-01-27 12:44 | CCD ---
Author Author [facility] Organization [facility] Address Unknown Phone Unavailable Care Team Providers Care Life Assurance Representative Name Role Phone Anne Hoffmann Unavailable Unavailable PROBLEMS Type Condition ICD9-CM Code [id number] Code Onset Dates Condition S tatus W/U Status Risk SNOMED Code Notes Problem Pure hypercholesterolemia E78.00 Active confirmed 699418202 Problem Moderate episode of recurrent major depressive disorder F33.1 Active confirmed 220120682 Problem Type 2 diabetes mellitus with diabetic chronic kidney disease E11.22 Active confirmed 960611537 Problem Allergy to local anesthetic Z88.4 Active confirmed 523484443 Problem Allergic rhinitis, unspecified seasonality, unspecifie d trigger J30.9 Active confirmed 64526938 Problem Oropharyngeal dysphagia R13.12 Active confirmed 59164573 Problem FPC current use of insulin Z79.4 Active conf irmed 235358710 Problem Vitamin D deficiency E55.9 Active confirmed 25129222 Problem Leukocytosis, unspecified type D72.829 Active confi rmed 467559590 Problem Diabetic 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 Active confirmed 84694070 Problem Neuropathy G62.9 Active confirmed 891303571 Problem Lumbar degenerative disc disease M51.36 Active conf irmed 18773691 Problem Urinary incontinence, unspecified type R32 A ctive confirmed 476119114 Problem Venous insufficiency of both lower extremities I87 .2 Active confirmed 959720043 Problem Diabetes E11.9 Active confirmed 345783243 Problem GERD without esophagitis K21.9 Active confirmed 090511563 Problem Pressure injury of buttock, stage 1, unspecified lateralit y L89.301 Active confirmed 75281998368207221 Problem Unspecified retinal disorder H35.9 Active confirme d 67935411 Problem Type 2 diabetes mellitus without complications E11 .9 Active confirmed 97487380 Problem Unspecified disorder of vitreous body H43.9 Ac tive confirmed 733976744 Problem Type 2 diabetes mellitus with hyperglycemia E11.65 Active confirmed 937983723819099 Problem Essential hypertension I10 Active confirmed 78413283 Problem Altered mental status, unspecified altered mental stat us type R41.82 Active confirmed 786297138 Problem Depression, unspecified depression type F32.9 Active confirmed 88597545 Problem Type 2 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.319 Active confirmed 641688931 Problem JAIME (obstructive sleep apnea) G47.33 Active confirm ed 25195579 ALLERGIES Allergen (clinical drug ingredient) Drug/Non Drug Allergy do cumented on EMR Reaction Allergy Type Onset Date Status gabapentin gabapentin(ND Code:[address]-90) Unknown Drug Allergy Active doxycycline Unknown Drug Allergy Active local anesthsia Unknown Non Drug Allergy Act catalina penicillin Unknown Drug Allergy Active codeine codeine(ND Code:[address]-49) Unknown Drug Allergy Active ENCOUNTERS from 1979 to 2020-11-28 Encounter Location Date Provider Diagnosis [facility] [address] [place] [id number] Oct, Lignum a [place] GERD without esophagitis K21.9 ; Irregular bowel habits R19.8 ; Type 2 diabetes mellitus with hyperglycemia E11.65 ; medical terminologist current use of insulin Z79.4 ; Diabetic polyneuropathy associated with type 2 diabetes mellitus E11.42 ; Unspecified disorder of vitreous body H43.9 and Unspecified retinal disorder H35.9 IMMUNIZATIONS Vaccine Route Administration Date Status COVID-19 [...] REASON FOR REFERRAL No Information VITAL SIGNS Heart Rate 77 /min Oct, Respiratory Rate 16 /min Oct, Height 67.5 in Oct, Weight 241.4 lbs Oct, Temperature 96.9 degrees Fahrenheit Oct, BMI 37.25 kg/m2 Oct, Blood pressure systolic 110 mm Hg Oct, Blood pressure diastolic 68 mm Hg Oct, MEDICATIONS Medication SIG (Take, Route, Frequency, Duration) Notes Start Da te End Date Status Lipitor 10 mg 1 tab(s) orally once a day at bedtime for 30 day(s) Active omeprazole 20 mg 1 cap(s) orally twice a day 30 mins before breakfast and dinner Active Undergarments medium use topically five times daily for 20 days May, Not-Taking ARIPiprazole 2 mg 1 tab(s) orally once a day for 30 day(s) May, Active Lantus Solostar Pen 100 units/mL 60 units subcutaneously bid for 30 d ays Active ramipril 5 mg 1 cap(s) orally once a day for 30 day(s) Active ZyrTEC 10 mg 1 tab(s) orally once a day for 30 day(s) 2019 Active metFORMIN 500 mg 1 tab(s) orally 2 times a day for 30 day(s) Active Aspir-Low 81 mg 1 tab(s) orally [...] a day for 7 day(s) May, Unknown Ozempic (0.25 mg or 0.5 mg dose) 2 mg/1.5 mL 0.25mg bojorquez bcutaneously once a week for 30 day(s) Active dorzolamide ophthalmic 2% 1 gtt in each eye BID Active Humalog KwikPen 100 units/mL as per sliding scale subc utaneously tid before meals Active DULoxetine 60 mg 1 cap(s) orally once a day for 30 day(s) Active Drisdol 50,000 intl units 1 cap(s) orally once a week for 28 day s July, Active latanoprost ophthalmic 0.005% 1 gtt in each eye once a day (in the evening) for 30 day(s) Active FRANCISCO STOCKING KNEE HIGH as directed DAILY - Medium Grade - DX Venous Insufficiency for 90 days Mar, Candice-Kam grajeda ondansetron 4 mg 1 tab(s) orally Q8H [...] Information RESULTS No Results REASON FOR VISIT SCREEN [facility] MEDICAL (GENERAL) HISTORY Type Description Date Medical [...] Notes Treatment Notes Treatm ent Clinical Notes Oct, GERD without esophagitis (ICD-10 - K21.9) Oct, Irregular bowel habits (ICD-10 - R19.8) 40 year old diabetic gentleman poorly controlled with diabetic retinopathy and neuropathy who has history of GERD and altered bowel habits with improvement in his blood glucose he no longer has diarrhea denies any rectal bleeding he has had a previous negative fit test and his reflux is controlled on a small dose of omeprazole. At this time would continue with high-fiber diet small dose of PPI agent, small frequent meals patient would not require at this time any invasive procedures such as an upper or lower endoscopic evaluation. We will follow-up with him in 6 to 8 months sooner if concerns or symptoms. Oct, Type 2 diabetes mellitus with hyperglycemia (ICD -10 - E11.65) Oct, FPC current use of insulin (ICD-10 - Z79.4 ) Oct, Diabetic polyneuropathy asso ciated with type 2 diabetes mellitus (ICD-10 - E11.42) Oct, Unspecified disorder of vitreous body (ICD-10 - H43.9) Oct, Unspecified retinal disorder (ICD-10 - H35.9) PLAN OF TREATMENT Medication Medication Name Sig Start Date Stop Date omeprazole 20 mg 1 cap(s) orally twice a day 30 mins before breakfast and dinner Treatment Notes Assessment Notes Clinical Notes Irregular bowel habits 40 year old diabetic gentlem an poorly controlled with diabetic retinopathy and neuropathy who has history of GERD and altered bowel habits with improvement in his blood glucose he no longer has diarrhea denies any rectal bleeding he has had a previous negative fit test and his reflux is controlled on a small dose of omeprazole. At this time would continue with high-fiber diet small dose of PPI agent, small frequent meals patient would not require at this time any invasive procedures such as an upper or lower endoscopic evaluation. We will follow-up with him in 6 to 8 months sooner if concerns or symptoms. Next Appt Details 6-8 months Reason: Provider Name:Gonsalo Lopez, 5 02:15:00 PM, [address] [place], [address], Provider Name:Anneglenn Hoffmann, 2021-07-25 0 1:00:00 PM, [address] [place], [address], Insurance Providers Payer Name Payer Address Payer Phone Insured Name Patient Relati onship to Insured Coverage Start Date Coverage End Date MEDICARE [facility] [address] [facility] [phone] JARAD JOE [employer] [address] [facility] [phone] JARAD JOE
--- OUTSIDE RECORDS SUMMARY | 2021-01-27 12:44 | CCD ---
Author Author [facility] Organization [facility] Address Unknown Phone Unavailable Care Team Providers Care Bean Sorter Name Role Phone Gonsalo Lopez Unavailable PROBLEMS Type Condition ICD9-CM Code [id number] Code Onset Dates Condition S tatus W/U Status Risk SNOMED Code Notes Problem Pure hypercholesterolemia E78.00 Active confirmed 098782763 Problem Moderate episode of recurrent major depressive disorder F33.1 Active confirmed 595598720 Problem Type 2 diabetes mellitus with diabetic chronic kidney disease E11.22 Active confirmed 362014612 Problem Allergy to local anesthetic Z88.4 Active confirmed 657631085 Problem Allergic rhinitis, unspecified seasonality, unspecifie d trigger J30.9 Active confirmed 19225867 Problem Oropharyngeal dysphagia R13.12 Active confirmed 30540252 Problem skilled nursing current use of insulin Z79.4 Active conf irmed 218057067 Problem Vitamin D deficiency E55.9 Active confirmed 26104988 Problem Leukocytosis, unspecified type D72.829 Active confi rmed 812116583 Problem Diabetic 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 Active confirmed 61220851 Problem Neuropathy G62.9 Active confirmed 591721826 Problem Lumbar degenerative disc disease M51.36 Active conf irmed 28024318 Problem Urinary incontinence, unspecified type R32 A ctive confirmed 790941032 Problem Venous insufficiency of both lower extremities I87 .2 Active confirmed 554640748 Problem Diabetes E11.9 Active confirmed 768450872 Problem GERD without esophagitis K21.9 Active confirmed 172756140 Problem Pressure injury of buttock, stage 1, unspecified lateralit y L89.301 Active confirmed 74015160166116730 Problem Unspecified retinal disorder H35.9 Active confirme d 90414372 Problem Type 2 diabetes mellitus without complications E11 .9 Active confirmed 43802511 Problem Unspecified disorder of vitreous body H43.9 Ac tive confirmed 293895428 Problem Type 2 diabetes mellitus with hyperglycemia E11.65 Active confirmed 158695993128625 Problem Essential hypertension I10 Active confirmed 12135417 Problem Altered mental status, unspecified altered mental stat us type R41.82 Active confirmed 919742218 Problem Depression, unspecified depression type F32.9 Active confirmed 43932186 Problem Type 2 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.319 Active confirmed 796417731 Problem JAIME (obstructive sleep apnea) G47.33 Active confirm ed 64253852 ALLERGIES Allergen (clinical drug ingredient) Drug/Non Drug Allergy do cumented on EMR Reaction Allergy Type Onset Date Status gabapentin gabapentin(ND Code:[address]-19) Unknown Drug Allergy Active doxycycline Unknown Drug Allergy Active local anesthsia Unknown Non Drug Allergy Act catalina penicillin Unknown Drug Allergy Active codeine codeine(ND Code:[address]-79) Unknown Drug Allergy Active ENCOUNTERS from 1979 to 2021-01-03 Encounter Location Date Provider Diagnosis [facility] User Experience Manager [address] [place] [address] 05 Dec, 2020 Gonsalo Elpidiojohan JAIME (obstructive sle ep apnea) G47.33 ; Type 2 diabetes mellitus with hyperglycemia E11.65 ; Moderate episode of recurrent major depressive disorder F33.1 ; Vitamin D deficiency E55.9 ; Irregular bowel habits R19.8 ; Allergic rhinitis, unspecified seasonality, unspecified trigger J30.9 ; skilled nursing current use of insulin Z79.4 ; Pure hypercholesterolemia E78.00 ; Essential hypertension I10 ; Lumbar degenerative disc disease M51.36 ; Neuropathy G62.9 ; GERD without esophagitis K21.9 ; Seizure R56.9 ; Type 2 diabetes mellitus with unspecified diabetic retinopathy without macular edema E11.319 and Bilateral leg edema R60.0 IMMUNIZATIONS Vaccine Route Administration Date Status COVID-19 [...] REFERRAL No Information VITAL SIGNS Heart Rate 72 /min Dec, Respiratory Rate 16 /min Dec, Height 67.5 in Dec, Weight 243.5 lbs Dec, BMI 37.57 kg/m2 Dec, Blood pressure systolic 102 mm Hg Dec, Blood pressure diastolic 76 mm Hg Dec, MEDICATIONS Medication SIG (Take, Route, Frequency, Duration) Notes Start Da te End Date Status ondansetron 4 mg 1 tab(s) orally Q8H PRN for N/V for 5 day(s) Sep, Active Senna S 50 mg-8.6 mg 1 tab(s) orally BID Active Meclizine Hydrochloride 25 mg 1 tab(s) orally once a d ay as needed for motion sickness for 10 day(s) Active Pen Needle 31g 6mm - subcutaneously 5 times a day for 30 day(s) Nov, Active Aspir-Low 81 mg 1 tab(s) orally once a day for 30 day(s) Active gemfibrozil 600 mg 1 tab(s) orally 2 times a day for 30 day(s) Active Humalog KwikPen 100 units/mL as per sliding scale subc utaneously tid before meals Active omeprazole 20 mg 1 cap(s) orally twice a day 30 mins before breakfast and dinner Active Ozempic (0.25 mg or 0.5 mg dose) 2 mg/1.5 mL 0.25mg bojorquez bcutaneously once a week for 30 day(s) Active acetaZOLAMIDE 250 mg 1 tab(s) orally once a day for 30 day(s) Active metFORMIN 500 mg 1 tab(s) orally 2 times a day for 30 day(s) Active Hydrocortisone/Neomycin/Polymyxin B, Otic 1%-0.35%-100 00 units/mL 2 gtt in each affected ear 4 times a day for 7 day(s) May, Unknown dorzolamide ophthalmic 2% 1 gtt in each eye BID Active ramipril 5 mg 1 cap(s) orally once a day for 30 day(s) Active FRANCISCO STOCKING KNEE HIGH as directed DAILY - Medium Grade - DX Venous Insufficiency for 90 days Mar, Not-Ta nicci FreeStyle Lite Strips NFRS 1 test strip topically 5 ti mes a day - Dx E11.65 for 30 day(s) Dec, Active Lantus Solostar Pen 100 units/mL 60 units subcutaneously bid for 30 d ays Active Undergarments medium use topically five times daily for 20 days May, Not-Taking Refresh Dry Eye Therapy A ctive ketoconazole topical 2% 1 kim applied topically once a day for 14 day (s) Active Lipitor 10 mg 1 tab(s) orally once a day at bedtime for 30 day(s) Active latanoprost ophthalmic 0.005% 1 gtt in each eye once a day (in the evening) for 30 day(s) Active Drisdol 1.25 mg 1 cap(s) orally once a week for 30 day(s) Active DULoxetine 60 mg 1 cap(s) orally once a day for 30 day(s) Active ZyrTEC 10 mg 1 tab(s) orally once a day for 30 day(s) 2019 Active ofloxacin otic 0.3% 5 gtt in each affected ear 2 times a day for 10 day(s) Active Drisdol 50,000 intl units 1 cap(s) orally once a week for 28 day s July, Active ARIPiprazole 2 mg 1 tab(s) orally once a day for 30 day(s) May, Active PROCEDURES No Information RESULTS No Results REASON FOR VISIT 3 months, Pt has had low blood sugars in morning., Labs in patient docs. MEDICAL (GENERAL) HISTORY Type Description Date Medical History High Blood Pressure Medical History High Cholesterol Medical History Diabetes Medical History GERD Medical History TIA Medical History Depression Medical History COVID-19 vaccine series completed Medical History Diabetic neuropathy Medical History Peripheral neuropathy Surgical History cholecystectomy Surgical History cholecystectomy 2004 Surgical History circumcision Surgical History circumcision 2007 [...] Treatment Notes Treatm ent Clinical Notes Dec, JAIME (obstructive sleep apnea) (ICD-10 - G47.33) Completed 2nd Night of Sleep Study. Waiting on order for CPAP machine. Dec, Type 2 diabetes mellitus with hyperglycemia (ICD -10 - E11.65) Patient is followed by Endocrinology. Patient was advised that we will decrease his Lantus to 40 units BID, continue with sliding scale. Patient was advised to continue checking his blood sugar regularly. Patient advised of the importance of a healthy diabetic diet and lifestyle. Dec, Moderate episode of recurren t major depressive disorder (ICD-10 - F33.1) Continue current treatment regimen. Dec, Vitamin D deficiency (ICD-10 - E55.9) Dec, Irregular bowel habits (ICD-10 - R19.8) Followed by Dr. Goode. Use Probiotics. Continue with bowel regimen. Dec, Allergic rhinitis, unspecifi ed seasonality, unspecified trigger (ICD-10 - J30.9) Continue current treatment regimen. Dec, moth exterminator current use of insulin (ICD-10 - Z79.4 ) Dec, Pure hypercholesterolemia (ICD-10 - E78.00) Continue current treatment regimen. Healthy lifestyle encouraged. Dec, Essential hypertension (ICD-10 - I10) Continue current treatment regimen. Healthy lifestyle encouraged. Dec, Lumbar degenerative disc disease (ICD-10 - M51.3 6) Dec, Neuropathy (ICD-10 - G62.9) Continue current treatment regimen. Dec, GERD without esophagitis (ICD-10 - K21.9) Continue with Omeprazole. Dec, Seizure (ICD-10 - R56.9) Followed by Dr. Alexandre. Dec, Type 2 diabetes mellitus wit h unspecified diabetic retinopathy without macular edema (ICD-10 - E11.319) Dec, Bilateral leg edema (ICD-10 - R60.0) Advised to limit Na intake, keep LE elevated. Dec, Other Food as Fuel: Ca re Instructions material was published to portal PLAN OF TREATMENT Treatment Notes Assessment Notes Clinical Notes JAIME (obstructive sleep apnea) Completed 2nd Night of S maop Study. Waiting on order for CPAP machine. Type 2 diabetes mellitus with hyperglycemia Patient is followed by Endocrinology. Patient was advised that we will decrease his Lantus to 40 units BID, continue with sliding scale. Patient was advised to continue checking his blood sugar regularly. Patient advised of the importance of a healthy diabetic diet and lifestyle. Moderate episode of recurrent major depressive disorde r Continue current treatment regimen. Irregular bowel habits Followed by Dr. Goode. Use Probiotics. Continue with bowel regimen. Allergic rhinitis, unspecified seasonality, unspecifie d trigger Continue current treatment regimen. Pure hypercholesterolemia Continue current treatment r egimen. Healthy lifestyle encouraged. Essential hypertension Continue current treatment r egimen. Healthy lifestyle encouraged. Neuropathy Continue current treatment regimen. GERD without esophagitis Continue with Omeprazole. Seizure Followed by Dr. Alexandre. Bilateral leg edema Advised to limit Na intake, keep LE elev ated. Treatment Notes Test Name Order Date COMP. METABOLIC PROFILE 2021-01-03 LIPID PROFILE 2021-01-03 Hg A1C 2021-01-03 CBC 2021-01-03 MAGNESIUM 2021-01-03 VITAMIN D 25-HYDROXY, D2 & D3 2021-01-03 Next Appt Details 3 Months Reason: Provider Name:Gonsalo Lopez, 5 02:15:00 PM, [address] [place] [address], [phone], Provider Name:Anne Hoffmann, 2021-07-25 0 1:00:00 PM, [address] [place] [address], [phone], Insurance Providers Payer Name Payer Address Payer Phone Insured Name Patient Relati onship to Insured Coverage Start Date Coverage End Date MEDICARE [facility] [address] [facility] [phone] JARAD FINLEY [employer] [address] [facility] [address] JARAD FINLEY
--- OUTSIDE RECORDS SUMMARY | 2021-01-27 12:44 | CCD ---
Author Author [facility] Organization [facility] Address Unknown Phone Unavailable Care Team Providers Care Kier Boiler Name Role Phone Gonsalo Lopez Unavailable PROBLEMS Type Condition ICD9-CM Code [id number] Code Onset Dates Condition S tatus W/U Status Risk SNOMED Code Notes Problem Pure hypercholesterolemia E78.00 Active confirmed 586803332 Problem Moderate episode of recurrent major depressive disorder F33.1 Active confirmed 072775557 Problem Type 2 diabetes mellitus with diabetic chronic kidney disease E11.22 Active confirmed 604905498 Problem Allergy to local anesthetic Z88.4 Active confirmed 478098860 Problem Allergic rhinitis, unspecified seasonality, unspecifie d trigger J30.9 Active confirmed 02141480 Problem Oropharyngeal dysphagia R13.12 Active confirmed 77323499 Problem shelter current use of insulin Z79.4 Active conf irmed 868221830 Problem Vitamin D deficiency E55.9 Active confirmed 17281410 Problem Leukocytosis, unspecified type D72.829 Active confi rmed 619426874 Problem Diabetic 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 Active confirmed 53673760 Problem Neuropathy G62.9 Active confirmed 932207998 Problem Lumbar degenerative disc disease M51.36 Active conf irmed 84298030 Problem Urinary incontinence, unspecified type R32 A ctive confirmed 244509647 Problem Venous insufficiency of both lower extremities I87 .2 Active confirmed 293286951 Problem Diabetes E11.9 Active confirmed 925978914 Problem GERD without esophagitis K21.9 Active confirmed 636095578 Problem Pressure injury of buttock, stage 1, unspecified lateralit y L89.301 Active confirmed 68742374176913712 Problem Unspecified retinal disorder H35.9 Active confirme d 16527335 Problem Type 2 diabetes mellitus without complications E11 .9 Active confirmed 02732837 Problem Unspecified disorder of vitreous body H43.9 Ac tive confirmed 924560393 Problem Type 2 diabetes mellitus with hyperglycemia E11.65 Active confirmed 489597382697636 Problem Essential hypertension I10 Active confirmed 26712319 Problem Altered mental status, unspecified altered mental stat us type R41.82 Active confirmed 589125803 Problem Depression, unspecified depression type F32.9 Active confirmed 05328879 Problem Type 2 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.319 Active confirmed 687365960 Problem JAIME (obstructive sleep apnea) G47.33 Active confirm ed 25683629 ALLERGIES Allergen (clinical drug ingredient) Drug/Non Drug Allergy do cumented on EMR Reaction Allergy Type Onset Date Status gabapentin gabapentin(ND Code:[address]-75) Unknown Drug Allergy Active doxycycline Unknown Drug Allergy Active local anesthsia Unknown Non Drug Allergy Act catalina penicillin Unknown Drug Allergy Active codeine codeine(ND Code:[address]-87) Unknown Drug Allergy Active ENCOUNTERS from 1979 to 2020-12-30 Encounter Location Date Provider Diagnosis [facility] [employer] [address] [place] [address] Dec, Gonsalo Lopez IMMUNIZATIONS Vaccine Route Administration [...] Notes Start Da te End Date Status FRANCISCO STOCKING KNEE HIGH as directed DAILY - Medium Grade - DX Venous Insufficiency for 90 days Mar, Not-Ta nicci Drisdol 50,000 intl units 1 cap(s) orally once a week for 28 day s July, Active Pen Needle 31g 6mm - subcutaneously 5 times a day for 30 day(s) Nov, Active Ozempic (0.25 mg or 0.5 mg [...] a day for 30 day(s) May, Active ramipril 5 mg 1 cap(s) orally once a day for 30 day(s) Active ZyrTEC 10 mg 1 tab(s) orally once a day for 30 day(s) 2019 Active Meclizine Hydrochloride 25 mg 1 tab(s) orally once a d ay as needed for motion sickness for 10 day(s) Active ondansetron 4 mg 1 tab(s) orally Q8H PRN for N/V for 5 day(s) Sep, Active ofloxacin otic 0.3% 5 gtt in each affected ear 2 times a day for 10 day(s) Active Humalog KwikPen 100 units/mL as per sliding scale subc utaneously tid before meals Active metFORMIN 500 mg 1 tab(s) orally 2 times a day for 30 day(s) Active latanoprost ophthalmic 0.005% 1 gtt in each eye once a day (in the evening) for 30 day(s) Active Aspir-Low 81 mg 1 tab(s) orally once a day for 30 day(s) Active Lantus Solostar Pen 100 units/mL 60 units subcutaneously bid for 30 d ays Active DULoxetine 60 mg 1 cap(s) orally [...] once a week for 30 day(s) Active ketoconazole topical 2% 1 kim applied topically once a day for 14 day (s) Active FreeStyle Lite Strips NFRS 1 test strip topically 5 ti mes a day - Dx E11.65 for 30 day(s) Dec, Active acetaZOLAMIDE 250 mg 1 tab(s) orally once a day for 30 day(s) Active Refresh Dry Eye Therapy A ctive PROCEDURES No Information RESULTS No Results REASON FOR VISIT rx refill MEDICAL (GENERAL) HISTORY Type Description Date Medical [...] Medication Name Sig Start Date Stop Date Pen Needle 31g 6mm - subcutaneously 5 times a day for 30 day(s) Nov, FreeStyle Lite Strips NFRS 1 test strip topically 5 ti mes a day - Dx E11.65 for 30 day(s) Dec, omeprazole 20 mg 1 cap(s) orally twice a day 30 mins before breakfast and dinner Next Appt Details Provider Name:Gonsalo Lopez, 2020-12-0 5 02:15:00 PM, [address] [place], [address], Provider Name:Anne Hoffmann, 2021-07-25 0 1:00:00 PM, [address] [place], [address], Insurance Providers Payer Name Payer Address Payer Phone Insured Name Patient Relati onship to Insured Coverage Start Date Coverage End Date MEDICARE [facility] [address] [facility] [address] JARAD FINLEY [employer] [address] [facility] [address] JARAD FINLEY self
--- OUTSIDE RECORDS SUMMARY | 2021-01-27 12:44 | CCD ---
Author Author [facility] Organization [facility] Address Unknown Phone Unavailable Care Team Providers Care Jackhammer Operator Name Role Phone Gonsalo Lopez Unavailable PROBLEMS Type Condition ICD9-CM Code [id number] Code Onset Dates Condition S tatus W/U Status Risk SNOMED Code Notes Problem Allergy to local anesthetic Z88.4 Active confirmed 539497529 Problem Vitamin D deficiency E55.9 Active confirmed 18011989 Problem Essential hypertension I10 Active confirmed 63068506 Problem Oropharyngeal dysphagia R13.12 Active confirmed 88572562 Problem Urinary incontinence, unspecified type R32 A ctive confirmed 957046898 Problem Moderate episode of recurrent major depressive disorder F33.1 Active confirmed 140131313 Problem senior care current use of insulin Z79.4 Active conf irmed 491534229 Problem Diabetic 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 Active confirmed 95945064 Problem Pure hypercholesterolemia E78.00 Active confirmed 138025966 Problem Lumbar degenerative disc disease M51.36 Active conf irmed 02443367 Problem Leukocytosis, unspecified type D72.829 Active confi rmed 845267535 Problem Neuropathy G62.9 Active confirmed 761370441 Problem Venous insufficiency of both lower extremities I87 .2 Active confirmed 183080372 Problem Allergic rhinitis, unspecified seasonality, unspecifie d trigger J30.9 Active confirmed 15828217 Problem Diabetes E11.9 Active confirmed 290370445 Problem GERD without esophagitis K21.9 Active confirmed 038688919 Problem Type 2 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.319 Active confirmed 932120258 Problem Type 2 diabetes mellitus with diabetic chronic kidney disease E11.22 Active confirmed 560662495 Problem JAIME (obstructive sleep apnea) G47.33 Active confirm ed 81988411 Problem Type 2 diabetes mellitus without complications E11 .9 Active confirmed 78966397 Problem Type 2 diabetes mellitus with hyperglycemia E11.65 Active confirmed 876036798706317 Problem Pressure injury of buttock, stage 1, unspecified lateralit y L89.301 Active confirmed 93878737357449327 Problem Altered mental status, unspecified altered mental stat us type R41.82 Active confirmed 988433243 Problem Gastroesophageal reflux disease without esophagitis K21.9 Active confirmed 676533204 Problem Depression, unspecified depression type F32.9 Active confirmed 81293923 ALLERGIES Allergen (clinical drug ingredient) Drug/Non Drug Allergy do cumented on EMR Reaction Allergy Type Onset Date Status gabapentin gabapentin(ND Code:[address]-93) Unknown Drug Allergy Active doxycycline Unknown Drug Allergy Active local anesthsia Unknown Non Drug Allergy Act catalina penicillin Unknown Drug Allergy Active codeine codeine(ND Code:[address]-21) Unknown Drug Allergy Active ENCOUNTERS from 1979 to 2020-11-14 Encounter Location Date Provider Diagnosis [facility] Se[employer] Machine [employer] [address] [place] [address] Oct, Gonsalo Jessica IMMUNIZATIONS Vaccine Route Administration Date Status COVID-19 [...] Notes Start Da te End Date Status ARIPiprazole 2 mg 1 tab(s) orally once a day for 30 day(s) May, Active Lipitor 10 mg 1 tab(s) orally once a day at bedtime for 30 day(s) Active ondansetron 4 mg 1 tab(s) orally Q8H PRN for N/V for 5 day(s) Sep, Active metFORMIN 500 mg 1 tab(s) orally 2 times a day for 30 day(s) Active Lantus Solostar Pen 100 units/mL 60 units subcutaneously bid for 30 d ays Active ZyrTEC 10 mg 1 tab(s) orally once a day for 30 day(s) 2019 Active Humalog KwikPen 100 units/mL as per sliding scale subc utaneously tid before meals Active ofloxacin otic 0.3% 5 gtt in each affected ear 2 times a day for 10 day(s) Active gemfibrozil 600 mg 1 tab(s) orally 2 times a day for 30 day(s) Active Meclizine Hydrochloride 25 mg 1 tab(s) orally once a d ay as needed for motion sickness for 10 day(s) Active FRANCISCO STOCKING KNEE HIGH as directed DAILY - Medium Grade - DX Venous Insufficiency for 90 days Mar, Not-Ta nicci ramipril 5 mg 1 cap(s) orally once a day for 30 day(s) Active Aspir-Low 81 mg 1 tab(s) orally once a day for 30 day(s) Active omeprazole 20 mg 1 cap(s) orally twice a day 30 mins before breakfast and dinner for 30 day(s) Active Ozempic (0.25 mg or 0.5 mg dose) 2 mg/1.5 mL 0.25mg bojorquez bcutaneously once a week for 30 day(s) Active DULoxetine 60 mg 1 cap(s) orally once a day for 30 day(s) Active Drisdol 50,000 intl units 1 cap(s) orally once a week for 28 day s July, Active Undergarments medium use topically five times daily for 20 days May, Not-Taking Hydrocortisone/Neomycin/Polymyxin B, Otic 1%-0.35%-100 00 units/mL 2 gtt in each affected ear 4 times a day for 7 day(s) May, Unknown PROCEDURES No Information RESULTS No Results REASON [...] Medication Name Sig Start Date Stop Date Meclizine Hydrochloride 25 mg 1 tab(s) orally once a d ay as needed for motion sickness for 10 day(s) Next Appt Details Provider Name:Anne Hoffmann, 2020-11-28 1 1:00:00 AM, [address] [place] [address], [phone], Provider Name:Gonsalo Gabrielle Lopez, 5 02:15:00 PM, [address] [place] [address], [phone], Insurance Providers Payer Name Payer Address Payer Phone Insured Name Patient Relati onship to Insured Coverage Start Date Coverage End Date [employer] [address] [facility] [phone] JARAD FNILEY MEDICARE PRIMARY [facility] [address] [facility] [phone] JARAD FINLEY
--- OUTSIDE RECORDS SUMMARY | 2021-01-27 12:45 | CCD ---
Author Author [facility] Organization [facility] Address Unknown Phone Unavailable Care Team Providers Care Inventory Management Specialist Name Role Phone CARLEE CARRENO MD Unavailable Unavailable CARLEE CARRENO MD Unavailable Unavailable CARLEE CARRENO MD Unavailable Unavailable CARLEE CARRENO MD Unavailable Unavailable CARLEE CARRENO MD Unavailable Unavailable CARLEE CARRENO MD Unavailable Unavailable CARLEE CARRENO MD Unavailable Unavailable CARLEE CARRENO MD Unavailable Unavailable CARLEE CARRENO MD Unavailable Unavailable CARLEE CARRENO MD Unavailable Unavailable CARLEE CARRENO MD Unavailable Unavailable CARLEE CARRENO MD Unavailable Unavailable CARLEE CARRENO MD Unavailable Unavailable CALREE CARRENO MD Unavailable Unavailable CARLEE CARRENO MD Unavailable Unavailable CARLEE CARRENO MD Unavailable Unavailable Bahman SMALLWOOD Unavailable Unavailable PHYSICIAN, OTHER Unavailable Unavailable Sunny Osiris Unavailable Goodson, Osiris Unavailable Goodson, Osiirs Unavailable Salamy, P Gonsalo PA Unavailable Unavailable Salamy, P Gonsalo PA Unavailable Unavailable Salamy, P Gonsalo PA Unavailable Unavailable Salamy, P Gonsalo PA Unavailable Unavailable Salamy, P Gonsalo PA Unavailable Unavailable Salamy, P Gonsalo PA Unavailable Unavailable Salamy, P Gonsalo PA Unavailable Unavailable Salamy, P Gonsalo PA Unavailable Unavailable Salamy, P Gonsalo PA Unavailable Unavailable Salamy, P Gonsalo PA Unavailable Unavailable Salamy, P Gonsalo PA Unavailable Unavailable Salamy, P Gonsalo PA Unavailable Unavailable Salamy, P Gonsalo PA Unavailable Unavailable Salamy, P Gonsalo PA Unavailable Unavailable Salamy, P Gonsalo PA Unavailable Unavailable Salamy, P Gonsalo PA Unavailable Unavailable Salamy, P Gonsalo PA Unavailable Unavailable Salamy, P Gonsalo PA Unavailable Unavailable Yazdanyar, Amirfarbod Unavailable Unavailable Yazdanyar, Amirfarbod Unavailable Unavailable Yazdanyar, Amirfarbod Unavailable Unavailable Yazdanyar, Amirfarbod Unavailable Unavailable Yazdanyar, Amirfarbod Unavailable Unavailable Yazdanyar, Amirfarbod Unavailable Unavailable Yazdanyar, Amirfarbod Unavailable Unavailable Yazdanyar, Amirfarbod Unavailable Unavailable Yazdanyar, Amirfarbod Unavailable Unavailable Yazdanyar, Amirfarbod Unavailable Unavailable Yazdanyar, Amirfarbod Unavailable Unavailable Yazdanyar, Amirfarbod Unavailable Unavailable Yazdanyar, Amirfarbod Unavailable Unavailable Malek, Bhumi Dickens MD Unavailable [phone] Malek, Bhumi Dickens MD Unavailable [phone] Malek, Bhumi Hamza Unavailable [phone] Malek, Bhumi Hamza Unavailable [phone] Malek, T Hamza Unavailable [phone] Malek, T Hamza MD Unavailable [phone] Malek, T Hamza MD Unavailable [phone] Malek, T Hamza MD Unavailable [phone] Malek, T Hamza MD Unavailable [phone] Malek, T Hamza MD Unavailable [phone] Malek, T Hamza MD Unavailable [phone] Malek, T Hamza MD Unavailable [phone] Malek, T Hamza MD Unavailable [phone] Malek, T Hamza MD Unavailable [phone] Malek, T Hamza MD Unavailable [phone] Malek, T Hamza MD Unavailable [phone] Malek, Bhumi Dickens MD Unavailable [phone] Malek, Bhumi Dickens MD Unavailable [phone] Malek, Bhumi Dickens MD Unavailable [phone] Malek, Bhumi Dickens MD Unavailable [phone] Malek, Bhumi Dickens MD Unavailable [phone] Malek, Bhumi Dickens MD Unavailable [phone] Mohan Cisneros MD Unavailable Unavailable Cisneros, Mohan Arrington MD Unavailable Unavailable Cisneros, Mohan Arrington MD Unavailable Unavailable Cisneros, Mohan Arrington MD Unavailable Unavailable Cisneros, Mohan Arrington MD Unavailable Unavailable Cisneros, Mohan Arrington MD Unavailable Unavailable Cisneros, Mohan Arrington MD Unavailable Unavailable Cisneros, Mohan Arrington MD Unavailable Unavailable Cisneros, Mohan Arrington MD Unavailable Unavailable Cisneros, Mohan Arrington MD Unavailable Unavailable Cisneros, Mohan Arrington MD Unavailable Unavailable Unkenholisrrael, Ez Bean MD Unavailable Unavailable Unkenholisrrael, Ez Bean MD Unavailable Unavailable Unkenholisrrael, Ez Bean MD Unavailable Unavailable Unkenholisrrael, Ez Bean MD Unavailable Unavailable Unkenholz, Ez Bean MD Unavailable Unavailable Unkenholisrrael, Ez Bean MD Unavailable Unavailable GALIMIDI ARTI DPM, J Arti DPM Unavailable GALIMIDI ARTI DPM, J Arti DPM Unavailable [phone] GALIMIDI ARTI DPM, J Arti DPM Unavailable [phone] GALIMIDI ARTI DPM, J Arti DPM Unavailable [phone] GALIMIDI ARTI DPM, J Arti DPM Unavailable [phone] GALIMIDI ARTI DPM, J Arti DPM Unavailable [phone] GALIMIDI ARTI DPM, J Arti DPM Unavailable GALIMIDI ARTI DPM, J Arti DPM Unavailable [phone] GALIMIDI ARTI DPM, J Arti DPM Unavailable GALIMIDI ARTI DPM, J Arti DPM Unavailable [phone] GALIMIDI ARTI DPM, J Arti DPM Unavailable Adelita Alexandre M.D. Unavailable Unavailable Johnson Kennedy MD Unavailable Unavailable KennedyJohnson MD Unavailable Unavailable KennedyShaanit Unavailable Unavailable Kennedy, Johnson MD Unavailable Unavailable KennedyShaanit Unavailable Unavailable KennedyShaanit MD Unavailable Unavailable Kennedy, Johnson MD Unavailable Unavailable KennedyShaanit MD Unavailable Unavailable Kennedy, Johnson MD Unavailable Unavailable Kennedy, Johnson MD Unavailable Unavailable Kennedy, Johnson MD Unavailable Unavailable Kennedy, Johnson MD Unavailable Unavailable Kennedy, Johnson MD Unavailable Unavailable Kennedy, Johnson MD Unavailable Unavailable Kennedy, Johnson MD Unavailable Unavailable Kennedy, Johnson MD Unavailable Unavailable Kennedy, Johnson MD Unavailable Unavailable Kennedy, Johnson MD Unavailable Unavailable Kennedy, Johnson MD Unavailable Unavailable Kennedy, Johnson MD Unavailable Unavailable Johnson Kennedy MD Unavailable Unavailable Shaan Kennedyit MD Unavailable Unavailable Johnson Kennedy MD Unavailable Unavailable Marcia, Johnson MD Unavailable Unavailable ANDREW LEDESMA MD Unavailable Unavailable ANDREW LEDESMA MD Unavailable Unavailable ANDREW LEDESMA MD Unavailable Unavailable ANDREW LEDESMA MD Unavailable Unavailable ANDREW LEDESMA MD Unavailable Unavailable ANDREW LEDESMA MD Unavailable Unavailable ANDREW LEDESMA MD Unavailable Unavailable ANDREW LEDESMA MD Unavailable Unavailable ANDREW LEDESMA MD Unavailable Unavailable ANDREW LEDESMA MD Unavailable Unavailable ANDREW LEDESMA MD Unavailable Unavailable ANDREW LEDESMA MD Unavailable Unavailable ANDREW LEDESMA MD Unavailable Unavailable ANDREW LEDESMA MD Unavailable Unavailable ANDREW LEDESMA MD Unavailable Unavailable YAP, CHAVEZ LONG Unavailable Unavailable YAP, CHAVEZ Unavailable Unavailable YAP, CHAVEZ Unavailable Unavailable YAP, CHAVEZ LONG Unavailable Unavailable YAP, CHAVEZ Unavailable Unavailable YAP, CHAVEZ Unavailable Unavailable YAP, CHAVEZ Unavailable Unavailable YAP, CHAVEZ Unavailable Unavailable YAP, CHAVEZ Unavailable Unavailable YAP, CHAVEZ MD Unavailable Unavailable YAP, CHAVEZ MD Unavailable Unavailable YAP, CHAVEZ MD Unavailable Unavailable YAP, CHAVEZ MD Unavailable Unavailable YAP, CHAVEZ MD Unavailable Unavailable YAP, CHAVEZ MD Unavailable Unavailable YAP, CHAVEZ MD Unavailable Unavailable YAP, CHAVEZ MD Unavailable Unavailable YAP, CHAVEZ MD Unavailable Unavailable YAP, CHAVEZ MD Unavailable Unavailable YAP, CHAVEZ MD Unavailable Unavailable YAP, CHAVEZ MD Unavailable Unavailable Adam BRAVO Unavailable Unavailable Adam Arellano Unavailable Unavailable Mohan Barton ELECTRICAL ELECTRONICS TECHNICIAN Unavailable Unavailable Sienkiewycz, L Venice ELECTRICAL ELECTRONICS TECHNICIAN Unavailable Unavailable Sienkiewycz, L Venice ELECTRICAL ELECTRONICS TECHNICIAN Unavailable Unavailable Sienkiewycz, L Venice ELECTRICAL ELECTRONICS TECHNICIAN Unavailable Unavailable Sienkiewycz, L Venice ELECTRICAL ELECTRONICS TECHNICIAN Unavailable Unavailable Sienkiewycz, L Venice ELECTRICAL ELECTRONICS TECHNICIAN Unavailable Unavailable Sienkiewycz, L Venice ELECTRICAL ELECTRONICS TECHNICIAN Unavailable Unavailable BUNKER, R GARRETT PA Unavailable Unavailable BUNKER, R GARRETT PA Unavailable Unavailable BUNKER, R GARRETT PA Unavailable Unavailable BUNKER, R GARRETT PA Unavailable Unavailable BUNKER, R GARRETT PA Unavailable Unavailable BUNKER, R GARRETT PA Unavailable Unavailable BUNKER, R GARRETT PA Unavailable Unavailable BUNKER, R GARRETT PA Unavailable Unavailable BUNKER, R GARRETT PA Unavailable Unavailable BUNKER, R GARRETT PA Unavailable Unavailable BUNKER, R GARRETT PA Unavailable Unavailable BUNKER, R GARRETT PA Unavailable Unavailable BUNKER, R GARRETT PA Unavailable Unavailable BUNKER, R GARRETT PA Unavailable Unavailable BUNKER, R GARRETT PA Unavailable Unavailable BUNKER, R GARRETT PA Unavailable Unavailable BUNKER, R GARRETT PA Unavailable Unavailable BUNKER, R GARRETT PA Unavailable Unavailable BUNKER, R GARRETT PA Unavailable Unavailable BUNKER, R GARRETT PA Unavailable Unavailable BUNKER, R GARRETT PA Unavailable Unavailable BUNKER, R GARRETT PA Unavailable Unavailable BUNKER, R GARRETT PA Unavailable Unavailable BUNKER, R GARRETT PA Unavailable Unavailable BUNKER, R GARRETT PA Unavailable Unavailable BUNKER, R GARRETT PA Unavailable Unavailable BUNKER, R GARRETT PA Unavailable Unavailable BUNKER, R GARRETT PA Unavailable Unavailable BUNKER, R GARRETT PA Unavailable Unavailable BUNKER, R GARRETT PA Unavailable Unavailable BUNKER, R GARRETT PA Unavailable Unavailable BUNKER, R GARRETT PA Unavailable Unavailable BUNKER, R GARRETT PA Unavailable Unavailable BUNKER, R GARRETT PA Unavailable Unavailable BUNKER, R GARRETT PA Unavailable Unavailable BUNKER, R GARRETT PA Unavailable Unavailable BUNKER, R GARRETT PA Unavailable Unavailable BUNKER, R GARRETT PA Unavailable Unavailable BUNKER, R GARRETT PA Unavailable Unavailable BUNKER, R GARRETT PA Unavailable Unavailable BUNKER, R GARRETT PA Unavailable Unavailable BUNKER, R GARRETT PA Unavailable Unavailable BUNKER, R GARRETT PA Unavailable Unavailable BUNKER, R GARRETT PA Unavailable Unavailable BUNKER, R GARRETT PA Unavailable Unavailable BUNKER, R GARRETT PA Unavailable Unavailable BUNKER, R GARRETT PA Unavailable Unavailable BUNKER, R GARRETT PA Unavailable Unavailable BUNKER, R GARRETT PA Unavailable Unavailable BUNKER, R GARRETT PA Unavailable Unavailable BUNKER, R GARRETT PA Unavailable Unavailable BUNKER, R GARRETT PA Unavailable Unavailable BUNKER, R GARRETT PA Unavailable Unavailable BUNKER, R GARRETT PA Unavailable Unavailable BUNKER, R GARRETT PA Unavailable Unavailable BUNKER, R GARRETT PA Unavailable Unavailable Bahman Smallwood Denise Unavailable Bahman Smallwood Denise Unavailable OSIRIS GOODSON Unavailable Unavailable Arellano, J Emre PA Unavailable [phone] Arellano, J Emre PA Unavailable [phone] Arellano, J Emre PA Unavailable [phone] Arellano, J Emre PA Unavailable [phone] Arellano, J Emre PA Unavailable [phone] Arellano, J Emre PA Unavailable [phone] Arellano, J Emre PA Unavailable [phone] Arellano, J Emre PA Unavailable [phone] Arellano, J Emre PA Unavailable [phone] Arellano, J Emre PA Unavailable [phone] Arellano, J Emre PA Unavailable [phone] Arellano, J Emre PA Unavailable [phone] Arellano, J Emre PA Unavailable [phone] Stew, G Dalkeith DO Unavailable Unavailable Stew, G Dalkeith DO Unavailable Unavailable Stew, G Dalkeith DO Unavailable Unavailable Stew, G Dalkeith DO Unavailable Unavailable Stew, G Dalkeith DO Unavailable Unavailable Stew, G Dalkeith DO Unavailable Unavailable Adam Bravoin Unavailable Re-disclosure Warning The records that you are about to access may contain information from federally-assisted alcohol or drug abuse programs. If such information is present, then the following federally mandated warning applies: This information has been disclosed to you from records protected by federal confidentiality rules (42 CFR part 2). The federal rules prohibit you from making any further disclosure of this information unless further disclosure is expressly permitted by the written consent of the person to whom it pertains or as otherwise permitted by 42 CFR part 2. A general authorization for the release of medical or other information is NOT sufficient for this purpose. The Federal rules restrict any use of the information to criminally investigate or prosecute any alcohol or drug abuse patient.The records that you are about to access may contain highly sensitive health information, the redisclosure of which is protected by Article 27-F of the [facility] Public Health law. If you continue you may have access to information: Regarding HIV / AIDS; Provided by facilities licensed or operated by the [facility] Office of Mental Health; or Provided by the [facility] Office for People With Developmental Disabilities. If such information is present, then the following [facility] mandated warning applies: This information has been disclosed to you from confidential records which are protected by state law. State law prohibits you from making any further disclosure of this information without the specific written consent of the person to whom it pertains, or as otherwise permitted by law. Any unauthorized further disclosure in violation of state law may result in a fine or prison sentence or both. A general authorization for the release of medical or other information is NOT sufficient authorization for further disc losure. Allergies and Adverse Reactions Type Description Substance Reaction Status Data Source(s ) Propensity to adverse reactions GABAPENTIN GABAPENTIN [facility] Propensity to adverse reactions CODEINE Codeine [facility] Propensity to adverse reactions POVIDONE IODINE POVIDONE IODINE [facility] Propensity to adverse reactions PENICILLINS Penicillin [facility] OTHER OTHER [facility] Propensity to adverse reactions LATEX Latex [facility] Propensity to adverse reactions EMPAGLIFLOZIN EMPAGLIFLOZIN [facility] Encounters Encounter Providers Location Date Indications Data Source(s ) Outpatient 03/28/2021 12:00:00 AM [facility] Outpatient 02/28/2021 12:00:00 AM [facility] Outpatient 02/07/2021 12:00:00 AM [facility] Outpatient Attender: Denise Shultzttender: DENISE RUSSELL [id number] 01/27/2021 12:00:00 AM EDT - 01/27/2021 09:15:31 AM EDT [facility] Outpatient Attender: Osiris GoodsonAttender: OSIRIS GOODSON 0 [id number] 01/24/2021 12:00:00 AM EDT - 01/24/2021 09:30:23 AM EDT Type 2 diabetes mellitus with proliferative diabetic retinopathy without macular edema, bilateral [facility] Type 2 diabetes mellitus with proliferat catalina diabetic retinopathy without macular edema, bilateral Outpatient [address] [place] [address] 12:00:00 AM EDT eCW1 ([facility]) Outpatient [address] [place] [address] 12:00:00 AM EDT eCW1 ([facility]) Outpatient [address] [place] [address] 12:00:00 AM EDT eCW1 ([facility]) Outpatient [address] [facility] [address] [place] [address] 01/04/2021 12:00:00 AM EDT [facility] Outpatient [address] [place] [address] 12:00:00 AM EDT eCW1 ([facility]) Outpatient [address] [place] [address] 12:00:00 AM EDT eCW1 ([facility]) Outpatient Attender: Barrett BravoAttender: BARRETT HERNDON [id number]-XXHAVCC 12/27/2020 12:00:00 AM EDT - 12/27/2020 11:24:02 AM EDT [facility] Outpatient [address] [place] [address] 12:00:00 AM EDT eCW1 ([facility]) Outpatient Attender: Osiris Umañaender: OSIRIS GOODSON 0 [id number] 12/15/2020 12:00:00 AM EDT - 12/15/2020 11:24:51 AM EDT [facility] Outpatient Attender: Gonsalo BLAND ER-LAB-PNP 12/09/2020 07:59:00 AM EDT [facility] Outpatient [address] [place] [address] 12:00:00 AM EDT eCW1 ([facility]) Outpatient [address] [place] [address] 12:00:00 AM EDT eCW1 ([facility]) Outpatient Attender: Arti MABRYDELICIABrittani ARTI DPM DPM CPSCAORT- CPSCNPOD 11/10/2020 12:59:00 PM EDT - 11/10/2020 01:00:00 PM EDT [facility] Patient discharged. [address]patient [address] [place] [address] 12:00:00 AM EDT eCW1 ([facility]) Outpatient Attender: Brea Kinsey [id number] 0 10/31/2020 12:00:00 AM EDT - 10/31/2020 10:46:37 AM EDT [facility] Outpatient Attender: Emre BLAND CPSCAORT-CPSCAEND 10/25/2020 03:05:00 PM EDT - 10/25/2020 03:06:00 PM EDT [facility] Patient discharged. Outpatient Attender: Osiris Garza laura: OSIRIS Umañaender: Brea Kinsey [id number] 10/17/2020 12:00:00 AM EDT - 10/17/2020 09:50:18 AM EDT [facility] Outpatient Attender: Brea Kinsey [id number] 0 10/10/2020 12:00:00 AM EDT - 10/10/2020 11:53:19 AM EDT [facility] Outpatient [address] [place] [address] 12:00:00 AM EDT eCW1 ([facility]) Outpatient [address] [place] [address] 12:00:00 AM EDT eCW1 ([facility]) Outpatient [address] [place] [address] 12:00:00 AM EDT eCW1 ([facility]) Outpatient Attender: Brea Kinsey [id number] 0 09/29/2020 12:00:00 AM EDT - 09/29/2020 08:53:46 AM T [facility] Outpatient Attender: Brea Moonitter: Brea MasonA-UOSC 09/28/2020 12:00:00 AM EDT - 09/28/2020 02:15:00 PM ED T Proliferative Diabetic Retinopathy with Vitreous Hemorrhage [facility] Proliferative Diabetic Retinopathy with Vitreous Hemorrhage Patient discharged. Outpatient Attender: Brea Rich: OTHER PH YSICIAN ER-LAB-PNP 09/23/2020 10:02:00 AM [facility] Outpatient Attender: Brea Kinsey 09/22/2020 12:00 :00 AM [facility] Outpatient Attender: Nury Cisneros MDReferrer: Brea simmonsyabonilla 09/19/2020 12:00:00 AM [facility] Outpatient Attender: Brea Ledesma: OTHER PHYSICIANConsultant: GARRETT BLAND ER-LAB-PNP 09/16/2020 11:30:00 AM T [facility] Outpatient Attender: Gonsalo BLAND SURG-NPLAB 09/15/2020 12:14:00 PM [facility] Outpatient Attender: Gonsalo BLAND SURG-NPLAB 09/15/2020 12:14:00 PM [facility] Outpatient [address] [place] [address] 12:00:00 AM EDT eCW1 ([facility]) Outpatient [address] [place] [address] 12:00:00 AM EDT eCW1 ([facility]) Outpatient Attender: Denise Gomes: DENISE RUSSELL [id number] 09/12/2020 12:00:00 AM EDT - 09/12/2020 04:42:07 PM EDT Type 2 diabetes mellitus with proliferative diabetic retinopathy without macular edema, bilateral [facility] Type 2 diabetes mellitus with proliferat catalina diabetic retinopathy without macular edema, bilateral Outpatient [address] [place] [address] 12:00:00 AM EDT eCW1 ([facility]) Outpatient [address] [place] [address] 12:00:00 AM EDT eCW1 ([facility]) Outpatient Attender: Emre BLAND CPSCAORT-CPSCAEND 08/24/2020 01:05:00 PM EDT - 08/24/2020 01:06:00 PM EDT [facility] Patient discharged. [address]patient [address] [place] [address] 12:00:00 AM EDT eCW1 ([facility]) Outpatient [address] [place] [address] 12:00:00 AM EDT eCW1 ([facility]) Outpatient [address] [place] [address] 12:00:00 AM EDT eCW1 ([facility]) Outpatient [address] [place] [address] 12:00:00 AM EDT eCW1 ([facility]) Outpatient [address] [place] [address] 12:00:00 AM EDT eCW1 ([facility]) Outpatient [address] [place] [address] 12:00:00 AM EDT eCW1 ([facility]) Outpatient [address] [place] [address] 12:00:00 AM EDT eCW1 ([facility]) Outpatient [address] [place] [address] 12:00:00 AM EDT eCW1 ([facility]) Outpatient [address] [place] [address] 12:00:00 AM EDT eCW1 ([facility]) Outpatient [address] [place] [address] 12:00:00 AM EDT eCW1 ([facility]) Outpatient Attender: Emre BLAND CPSCAORT-CPSCAEND 06/06/2020 01:33:00 PM EST - 06/06/2020 01:34:00 PM EST [facility] Patient discharged. Outpatient [address] [place] [address] 12:00:00 AM EST eCW1 ([facility]) Outpatient [address] [place] [address] 12:00:00 AM EST eCW1 ([facility]) P Attender: CHAVEZ YAP MD SURG-ENDO 05/24/2020 08:30:00 A [facility] Outpatient [address] [place] [address] 12:00:00 AM EST eCW1 ([facility]) Outpatient Attender: CHAVEZ YAP MD SURG-NPLAB 05/23/2020 12:24:00 A [facility] Outpatient Attender: CHAVEZ YAP MD SURG-NPLAB 05/19/2020 12:00:00 A [facility] Outpatient [address] [place] [address] 12:00:00 AM EST eCW1 ([facility]) Outpatient [address] [place] [address] 12:00:00 AM EST eCW1 ([facility]) Outpatient [address] [place] [address] 12:00:00 AM EST eCW1 ([facility]) Outpatient Attender: Gonsalo Lopez PAConsultant: Maninder montana M.D. SURG-MRI 05/05/2020 01:25:[address] [facility] Attender: Arti SANCHEZ DPM DPM CPSCAORT- CPSCNPOD 04/29/2020 12:00:00 AM EST - 04/27/2020 01:01:00 PM [facility] Discharge cancelled. Disregard status an d discharged date. Outpatient [address] [place] [address] 12:00:00 AM EST eCW1 ([facility]) Outpatient Attender: Emre MEADttender: Gabrielle BLAND CPSCAORT-CPSCAEND 04/26/2020 01:10:00 PM EST - 04/26/2020 01:11:00 PM [facility] Patient discharged. P Attender: Venice Barton NP SURG-NPLAB 04/15/2020 10:2 7:00 AM [facility]. Outpatient [address] [place] [address] 12:00:00 AM EST eCW1 ([facility]) Outpatient [address] [place] [address] 12:00:00 AM EST eCW1 ([facility]) Outpatient [address] [place] [address] 12:00:00 AM EST eCW1 ([facility]) Outpatient Attender: Arti ROSS ARTI DPM DPM CPSCAORT- CPSCNPOD 02/22/2020 01:24:00 PM EST - 02/22/2020 01:25:00 PM [facility] Patient discharged. [address]patient [address] [place] [address] 12:00:00 AM EST eCW1 ([facility]) Emergency Attender: Vikas Hou MD SURG-ER 10/2019 02:14:00 PM EST - 02/07/2020 05:54:00 PM [facility]. Patient discharged. [address]patient [address] [place] [address] 12:00:00 AM EST eCW1 ([facility]) Outpatient [address] [place] [address] 12:00:00 AM EST eCW1 ([facility]) Outpatient Attender: Emre BLAND CPSCAORT-CPSCAEND 01/21/2020 01:14:00 PM EDT - 01/21/2020 01:15:00 PM EDT [facility] Patient discharged. [address]patient [address] [place] [address] 12:00:00 AM EDT eCW1 ([facility]) P Attender: Maninder Alexandre M.D. [id number] 12/31/2019 12:00 :00 AM EDT [facility]. Outpatient [address] [place] [address] 12:00:00 AM EDT eCW1 ([facility]) Outpatient Attender: Emre BLAND CPSCAORT-CPSCAEND 12/18/2019 01:16:00 PM EDT - 12/18/2019 01:17:00 PM EDT [place] [facility] Patient discharged. Outpatient Attender: Maninder Alexandre MD CPSCAORT-CPSCANEU 12/17 11:59:00 AM EDT - 12/18/2019 12:00:[address] [facility] Patient discharged. Outpatient Attender: Layne ELLISON ttender: Johnson Kennedy MDAttender: ANDREW LEDESMA MDAttender: CARLEE CARRENO MD [email or web address] 11/21/2018 1 0:05:00 AM EDT [facility] Immunizations Vaccine Date Status Description Data Source(s) COVID-19 VACCINE Moderna 10/05/2020 12:00:00 AM EDT completed NYSIIS Vaccine Series Complete: NOThis Data was Submitted to [facility] Via [facility]. Approved by FDA 2013, adjuvant is mixed at point of ad ministration. 08/27/2020 09:52:00 AM EDT completed eCW1 ([facility]) Approved by FDA 2013, adjuvant is mixed at point of ad ministration. 08/27/2020 09:52:00 AM EDT completed eCW1 ([facility]) Approved by FDA 2013, adjuvant is mixed at point of ad ministration. 08/27/2020 09:52:00 AM EDT completed eCW1 ([facility]) Approved by FDA 2013, adjuvant is mixed at point of ad ministration. 08/27/2020 09:52:00 AM EDT completed eCW1 ([facility]) Approved by FDA 2013, adjuvant is mixed at point of ad ministration. 08/27/2020 09:52:00 AM EDT completed eCW1 ([facility]) Approved by FDA 2012, adjuvant is mixed at point of ad ministration. 08/27/2020 09:52:00 AM EDT completed eCW1 ([facility]) Approved by FDA 2012, adjuvant is mixed at point of ad ministration. 08/27/2020 09:52:00 AM EDT completed eCW1 ([facility]) Approved by FDA 2012, adjuvant is mixed at point of ad ministration. 08/27/2020 09:52:00 AM EDT completed eCW1 ([facility]) Approved by FDA 2012, adjuvant is mixed at point of ad ministration. 08/27/2020 09:52:00 AM EDT completed eCW1 ([facility]) Approved by FDA 2013, adjuvant is mixed at point of ad ministration. 08/27/2020 09:52:00 AM EDT completed eCW1 ([facility]) Approved by FDA 2013, adjuvant is mixed at point of ad ministration. 08/27/2020 09:52:00 AM EDT completed eCW1 ([facility]) Approved by FDA 2013, adjuvant is mixed at point of ad ministration. 08/27/2020 09:52:00 AM EDT completed eCW1 ([facility]) Approved by FDA 2013, adjuvant is mixed at point of ad ministration. 08/27/2020 09:52:00 AM EDT completed eCW1 ([facility]) Approved by FDA 2013, adjuvant is mixed at point of ad ministration. 08/27/2020 09:52:00 AM EDT completed eCW1 ([facility]) Approved by FDA 2013, adjuvant is mixed at point of ad ministration. 08/27/2020 09:52:00 AM EDT completed eCW1 ([facility]) COVID-19 VACCINE [place] 08/27/2020 12:00:00 AM EDT completed NYSIIS Vaccine Series Complete: YESThis Data wa s Submitted to [facility] Via [employer]. IIV3. This is one of two codes replacing CVX 15, which is being retired. 02/04/2020 03:19:00 PM EST completed eCW1 ([facility]) IIV3. This is one of two codes replacing CVX 15, which is being retired. 02/04/2020 03:19:00 PM EST completed eCW1 ([facility]) IIV3. This is one of two codes replacing CVX 15, which is being retired. 02/04/2020 03:19:00 PM EST completed eCW1 ([facility]) IIV3. This is one of two codes replacing CVX 15, which is being retired. 02/04/2020 03:19:00 PM EST completed eCW1 ([facility]) IIV3. This is one of two codes replacing CVX 15, which is being retired. 02/04/2020 03:19:00 PM EST completed eCW1 ([facility]) IIV3. This is one of two codes replacing CVX 15, which is being retired. 02/04/2020 03:19:00 PM EST completed eCW1 ([facility]) IIV3. This is one of two codes replacing CVX 15, which is being retired. 02/04/2020 03:19:00 PM EST completed eCW1 ([facility]) IIV3. This is one of two codes replacing CVX 15, which is being retired. 02/04/2020 03:19:00 PM EST completed eCW1 ([facility]) IIV3. This is one of two codes replacing CVX 15, which is being retired. 02/04/2020 03:19:00 PM EST completed eCW1 ([facility]) IIV3. This is one of two codes replacing CVX 15, which is being retired. 02/04/2020 03:19:00 PM EST completed eCW1 ([facility]) IIV3. This is one of two codes replacing CVX 15, which is being retired. 02/04/2020 03:19:00 PM EST completed eCW1 ([facility]) IIV3. This is one of two codes replacing CVX 15, which is being retired. 02/04/2020 03:19:00 PM EST completed eCW1 ([facility]) IIV3. This is one of two codes replacing CVX 15, which is being retired. 02/04/2020 03:19:00 PM EST completed eCW1 ([facility]) IIV3. This is one of two codes replacing CVX 15, which is being retired. 02/04/2020 03:19:00 PM EST completed eCW1 ([facility]) IIV3. This is one of two codes replacing CVX 15, which is being retired. 02/04/2020 03:19:00 PM EST completed eCW1 ([facility]) IIV3. This is one of two codes replacing CVX 15, which is being retired. 02/04/2020 03:19:00 PM EST completed eCW1 ([facility]) IIV3. This is one of two codes replacing CVX 15, which is being retired. 02/04/2020 03:19:00 PM EST completed eCW1 ([facility]) IIV3. This is one of two codes replacing CVX 15, which is being retired. 02/04/2020 03:19:00 PM EST completed eCW1 ([facility]) IIV3. This is one of two codes replacing CVX 15, which is being retired. 02/04/2020 03:19:00 PM EST completed eCW1 ([facility]) IIV3. This is one of two codes replacing CVX 15, which is being retired. 02/04/2020 03:19:00 PM EST completed eCW1 ([facility]) IIV3. This is one of two codes replacing CVX 15, which is being retired. 02/04/2020 03:19:00 PM EST completed eCW1 ([facility]) IIV3. This is one of two codes replacing CVX 15, which is being retired. 02/04/2020 03:19:00 PM EST completed eCW1 ([facility]) IIV3. This is one of two codes replacing CVX 15, which is being retired. 02/04/2020 03:19:00 PM EST completed eCW1 ([facility]) IIV3. This is one of two codes replacing CVX 15, which is being retired. 02/04/2020 03:19:00 PM EST completed eCW1 ([facility]) IIV3. This is one of two codes replacing CVX 15, which is being retired. 02/04/2020 03:19:00 PM EST completed eCW1 ([facility]) IIV3. This is one of two codes replacing CVX 15, which is being retired. 02/04/2020 03:19:00 PM EST completed eCW1 ([facility]) IIV3. This is one of two codes replacing CVX 15, which is being retired. 02/04/2020 03:19:00 PM EST completed eCW1 ([facility]) IIV3. This is one of two codes replacing CVX 15, which is being retired. 02/04/2020 03:19:00 PM EST completed eCW1 ([facility]) IIV3. This is one of two codes replacing CVX 15, which is being retired. 02/04/2020 03:19:00 PM EST completed eCW1 ([facility]) IIV3. This is one of two codes replacing CVX 15, which is being retired. 02/04/2020 03:19:00 PM EST completed eCW1 ([facility]) IIV3. This is one of two codes replacing CVX 15, which is being retired. 02/04/2020 03:19:00 PM EST completed eCW1 ([facility]) IIV3. This is one of two codes replacing CVX 15, which is being retired. 02/04/2020 03:19:00 PM EST completed eCW1 ([facility]) IIV3. This is one of two codes replacing CVX 15, which is being retired. 02/04/2020 03:19:00 PM EST completed eCW1 ([facility]) IIV3. This is one of two codes replacing CVX 15, which is being retired. 02/04/2020 03:19:00 PM EST completed eCW1 ([facility]) IIV3. This is one of two codes replacing CVX 15, which is being retired. 02/04/2020 03:19:00 PM EST completed eCW1 ([facility]) IIV3. This is one of two codes replacing CVX 15, which is being retired. 02/04/2020 03:19:00 PM EST completed eCW1 ([facility]) IIV3. This is one of two codes replacing CVX 15, which is being retired. 02/04/2020 03:19:00 PM EST completed eCW1 ([facility]) IIV3. This is one of two codes replacing CVX 15, which is being retired. 02/04/2020 03:19:00 PM EST completed eCW1 ([facility]) IIV3. This is one of two codes replacing CVX 15, which is being retired. 02/04/2020 03:19:00 PM EST completed eCW1 ([facility]) Medications Medication Brand Name Start Date Product Form Dose Route Admi nistrative Instructions Pharmacy Instructions Status Indications Reaction Description Data Source(s) 1 % 01/24/2021 12:00:00 AM EDT drops 5 INSTILL ONE DROP IN THE LEFT EYE TWO TIMES A DAY INSTILL ONE DROP IN THE LEFT EYE TWO TIMES A DAY SOLD: [facility] 1 % 01/24/2021 12:00:00 AM EDT drops,suspension 5 INSTILL ONE DROP IN THE LEFT EYE TWO TIMES A DAY FOR 10 DAYS INSTILL ONE DROP IN THE LEFT EYE TWO NELL ES A DAY FOR 10 DAYS SOLD: 01/24/2021 [facility] FreeStyle Lite Strips [facility] 12/30/2020 12:00:00 AM EDT active FreeStyle Lite Strips [facility] eCW1 ([facility]) FreeStyle Lite Strips [facility] 12/30/2020 12:00:00 AM EDT active FreeStyle Lite Strips [facility] eCW1 ([facility]) FreeStyle Lite Strips [facility] 12/30/2020 12:00:00 AM EDT active FreeStyle Lite Strips [facility] eCW1 ([facility]) FreeStyle Lite Strips [facility] 12/30/2020 12:00:00 AM EDT active FreeStyle Lite Strips [facility] eCW1 ([facility]) FreeStyle Lite Strips [facility] 12/30/2020 12:00:00 AM EDT active FreeStyle Lite Strips [facility] eCW1 ([facility]) Pen Needle 31g 6mm [facility] 12/21/2020 12:00:00 AM EDT active Pen Needle 31g 6mm eCW1 ([facility]) Pen Needle 31g 6mm [facility] 12/21/2020 12:00:00 AM EDT active Pen Needle 31g 6mm eCW1 ([facility]) Pen Needle 31g 6mm [facility] 12/21/2020 12:00:00 AM EDT active Pen Needle 31g 6mm eCW1 ([facility]) Pen Needle 31g 6mm [facility] 12/21/2020 12:00:00 AM EDT active Pen Needle 31g 6mm eCW1 ([facility]) Pen Needle 31g 6mm [facility] 12/21/2020 12:00:00 AM EDT active Pen Needle 31g 6mm eCW1 ([facility]) Pen Needle 31g 6mm [facility] 12/21/2020 12:00:00 AM EDT active Pen Needle 31g 6mm eCW1 ([facility]) Phenylephrine Hydrochloride 25 MG/ML Oph thalmic Solution phenylephrine (MYDFRIN) 2.5 % ophthalmic solution 1 drop phenylephrine (MYDFRIN) 2.5 % ophthalmic solution 1 drop 10/31/2020 09:45:00 AM EDT 1 [drp] Both Eyes completed 1 drop, Both Eyes, Once, On Sat10/31/20 at 0945, For 1 dose [facility] Medication administered onsite Tropicamide 10 MG/ML Ophthalmic Solution tropicamide (MYDRIACYL) 1 % ophthalmic solution 1 drop tropicamide (MYDRIACYL) 1 % ophthalmic solution 1 drop 10/31/2020 09:45:00 AM EDT 1 [drp] Both Eyes completed 1 drop, Both Eyes, Once, On Sat10/31/20 at 0945, For 1 dose [facility] Medication administered onsite Proparacaine hydrochloride 5 MG/ML Ophth almic Solution proparacaine (ALCAINE) 0.5 % ophthalmic solution 1 drop proparacaine (ALCAINE) 0.5 % ophthalmic solution 1 drop 10/31/2020 09:45:00 AM EDT 1 [drp] Both Eyes completed 1 drop, Both Eyes, Once, On Sat10/31/20 at 0945, For 1 dose [facility] Medication administered onsite Carboxymethylcellulose Sodium 1 % Ophthalmic Solution [id number] 10/31/2020 12:00:00 AM EDT 1 [drp] Both Eyes active Place 1 drop into both eyes Four times daily [facility] Proparacaine hydrochloride 5 MG/ML Ophth almic Solution proparacaine (ALCAINE) 0.5 % ophthalmic solution 1 drop proparacaine (ALCAINE) 0.5 % ophthalmic solution 1 drop 10/17/2020 09:30:00 AM EDT 1 [drp] Both Eyes a ctive [facility] latanoprost 0.05 MG/ML Ophthalmic Soluti on Latanoprost 0.005 % Ophthalmic Solution (XALATAN) Latanoprost 0.005 % Ophthalmic Solution (XALATAN) 09/29 12:00:00 AM EDT 1 [drp] Right Eye active Place 1 drop into the right eye nightly [facility] Acetazolamide 250 MG Oral Tablet acetaZOLAMIDE 250 MG Oral Tablet (DIAMOX) acetaZOLAMIDE 250 MG Oral Tablet (DIAMOX) 10/17/2020 12:00:00 AM EDT 250 mg Oral active Take 1 tablet by armand th Four times daily [facility] Proparacaine hydrochloride 5 MG/ML Ophth almic Solution proparacaine (ALCAINE) 0.5 % ophthalmic solution 1 drop proparacaine (ALCAINE) 0.5 % ophthalmic solution 1 drop 10/10/2020 11:00:00 AM EDT 1 [drp] Right Eye completed 1 drop, Right Eye, Once, On Sat10/10/20 at 1100, For 1 dose [facility] Medication administered onsite Brimonidine tartrate 1 MG/ML Ophthalmic Solution brimonidine (ALPHAGAN P) 0.1 % ophthalmic solution 1 drop brimonidine (ALPHAGAN P) 0.1 % ophthalmi c solution 1 drop 10/10/2020 10:15:00 AM EDT 1 [drp] Right Eye complet ed 1 drop, Right Eye, Every 15 min, First dose on Sat10/10/20 at 1015, For 3 doses [facility] Medication administered onsite dorzolamide-timolol (COSOPT) 22.3-6.8 MG/ML ophthalmic solution 1 drop [id number] 10/10/2020 10:15:00 AM EDT 1 [drp] Right Eye c ompleted 1 drop, Right Eye, Every 15 min, First dose on Sat10/10/20 at 1015, For 3 doses [facility] Medication administered onsite Acetazolamide 250 MG Oral Tablet acetaZOLAMIDE (DIAMOX ) tablet 500 mg acetaZOLAMIDE (DIAMOX) tablet 500 mg 10/10/2020 10:00:00 AM EDT 500 m g Oral completed 500 mg, Oral, Once, On Sat at 1000, For 1 dose [facility] Medication administered onsite Phenylephrine Hydrochloride 25 MG/ML Oph thalmic Solution phenylephrine (MYDFRIN) 2.5 % ophthalmic solution 1 drop phenylephrine (MYDFRIN) 2.5 % ophthalmic solution 1 drop 10/10/2020 09:30:00 AM EDT 1 [drp] Left Eye completed 1 drop, Left Eye, Once, On Sat10/10/20 at 0930, For 1 dose [facility] Medication administered onsite Tropicamide 10 MG/ML Ophthalmic Solution tropicamide (MYDRIACYL) 1 % ophthalmic solution 1 drop tropicamide (MYDRIACYL) 1 % ophthalmic solution 1 drop 10/10/2020 09:30:00 AM EDT 1 [drp] Left Eye completed 1 drop, Left Eye, Once, On Sat10/10/20 at 0930, For 1 dose [facility] Medication administered onsite Proparacaine hydrochloride 5 MG/ML Ophth almic Solution proparacaine (ALCAINE) 0.5 % ophthalmic solution 1 drop proparacaine (ALCAINE) 0.5 % ophthalmic solution 1 drop 10/10/2020 09:30:00 AM EDT 1 [drp] Both Eyes completed 1 drop, Both Eyes, Once, On Sat10/10/20 at 0930, For 1 dose [facility] Medication administered onsite Acetazolamide 250 MG Oral Tablet acetaZOLAMIDE 250 MG Oral Tablet (DIAMOX) acetaZOLAMIDE 250 MG Oral Tablet (DIAMOX) 10/10/2020 12:00:00 AM EDT 250 mg Oral aborted Take 1 tablet by armand Three times daily [facility] Brimonidine tartrate 2 MG/ML Ophthalmic Solution Brimonidine Tartrate 0.2 % Ophthalmic Solution (ALPHAGAN) Brimonidine Tartrate 0.2 % Ophthalmic So lution (ALPHAGAN) 10/10/2020 12:00:00 AM EDT 1 [drp] Right Eye act [facility] Place 1 drop into the right eye Three times daily [facility] Acetazolamide 250 MG Oral Tablet acetaZOLAMIDE 250 MG Oral Tablet (DIAMOX) acetaZOLAMIDE 250 MG Oral Tablet (DIAMOX) 10/10/2020 12:00:00 AM EDT 250 mg Oral active Take 1 tablet by armand Three times daily [facility] Dorzolamide HCl-Timolol Mal 22.3-6.8 MG/ML Ophthalmic Solution (Cosopt) 26535-885-98 10/10/2020 12:00:00 AM EDT 1 [drp] Right Eye a ctive Place 1 drop into the right eye Two Times Daily [facility] Brimonidine tartrate 2 MG/ML Ophthalmic Solution Brimonidine Tartrate 0.2 % Ophthalmic Solution (ALPHAGAN) Brimonidine Tartrate 0.2 % Ophthalmic So lution (ALPHAGAN) 10/10/2020 12:00:00 AM EDT 1 [drp] Right Eye act [facility] Place 1 drop into the right eye Three times daily [facility] Dorzolamide HCl-Timolol Mal 22.3-6.8 MG/ML Ophthalmic Solution (Cosopt) 88083-493-45 10/10/2020 12:00:00 AM EDT 1 [drp] Right Eye a ctive Place 1 drop into the right eye Two Times Daily [facility] Ondansetron 4 MG Disintegrating Oral Tablet ondansetron 4 mg ondansetron 4 mg 10/05/2020 12:00:00 AM EDT 1.0 {tab(s)} active ondansetron 4 mg eCW1 ([facility]) Ondansetron 4 MG Disintegrating Oral Tablet ondansetron 4 mg ondansetron 4 mg 10/05/2020 12:00:00 AM EDT 1.0 {tab(s)} active ondansetron 4 mg eCW1 ([facility]) Ondansetron 4 MG Disintegrating Oral Tablet ondansetron 4 mg ondansetron 4 mg 10/05/2020 12:00:00 AM EDT 1.0 {tab(s)} active ondansetron 4 mg eCW1 ([facility]) Ondansetron 4 MG Disintegrating Oral Tablet ondansetron 4 mg ondansetron 4 mg 10/05/2020 12:00:00 AM EDT 1.0 {tab(s)} active ondansetron 4 mg eCW1 ([facility]) Ondansetron 4 MG Disintegrating Oral Tablet ondansetron 4 mg ondansetron 4 mg 10/05/2020 12:00:00 AM EDT 1.0 {tab(s)} active ondansetron 4 mg eCW1 ([facility]) Ondansetron 4 MG Disintegrating Oral Tablet ondansetron 4 mg ondansetron 4 mg 10/05/2020 12:00:00 AM EDT 1.0 {tab(s)} active ondansetron 4 mg eCW1 ([facility]) Ondansetron 4 MG Disintegrating Oral Tablet ONDANSETRON 10/05/2020 12:00:00 AM EDT tablet,disintegrating 15 DISSOLVE 1 TABLET ON TONGUE EVERY 8 HOURS NEEDED FOR NAUSEA AND VOMITING FOR 5 DAYS DISSOLVE 1 TABLET ON TONGUE EVERY 8 HOURS NEEDED FOR NAUSEA AND VOMITING FOR 5 DAYS SOLD: 10/05/2020 [facility] Ondansetron 4 MG Disintegrating Oral Tablet ondansetron 4 mg ondansetron 4 mg 10/05/2020 12:00:00 AM EDT 1.0 {tab(s)} active ondansetron 4 mg eCW1 ([facility]) Ondansetron 4 MG Disintegrating Oral Tablet ondansetron 4 mg ondansetron 4 mg 10/05/2020 12:00:00 AM EDT 1.0 {tab(s)} active ondansetron 4 mg eCW1 ([facility]) Ondansetron 4 MG Disintegrating Oral Tablet ondansetron 4 mg ondansetron 4 mg 10/05/2020 12:00:00 AM EDT 1.0 {tab(s)} active ondansetron 4 mg eCW1 ([facility]) Ondansetron 4 MG Disintegrating Oral Tablet ondansetron 4 mg ondansetron 4 mg 10/05/2020 12:00:00 AM EDT 1.0 {tab(s)} active ondansetron 4 mg eCW1 ([facility]) Ondansetron 4 MG Disintegrating Oral Tablet ondansetron 4 mg ondansetron 4 mg 10/05/2020 12:00:00 AM EDT 1.0 {tab(s)} active ondansetron 4 mg eCW1 ([facility]) Ondansetron 4 MG Disintegrating Oral Tablet ondansetron 4 mg ondansetron 4 mg 10/05/2020 12:00:00 AM EDT 1.0 {tab(s)} active ondansetron 4 mg eCW1 ([facility]) Atropine Sulfate 10 MG/ML Ophthalmic Elvi ution Atropine Sulfate 1 % Ophthalmic Solution Atropine Sulfate 1 % Ophthalmic Solution 09/30/2020 12:00:00 AM EDT 1 [drp] Right Eye active Place 1 drop into the right eye Two Times Daily [facility] Ofloxacin 3 MG/ML Ophthalmic Solution Of loxacin 0.3 % Ophthalmic Solution (OCUFLOX) Ofloxacin 0.3 % Ophthalmic Solution (OCUFLOX) 10/01/19 12:00:00 AM EDT 1 [drp] Right Eye active Place 1 drop into the right eye Four times daily [facility] 1 % 09/29/2020 12:00:00 AM EDT drops,suspension 5 INSTILL ONE DROP IN THE RIGHT EYE FOUR TIMES A DAY FOR 10 DAYS INSTILL ONE DROP IN THE RIGHT EYE FOUR TIMES A DAY FOR 10 DAYS SOLD: 09/30/2020 [facility] bevacizumab-awwb (MVASI) 3.25 mg/0.13 mL intravitreal injection 1.25 mg [id number]&* 09/12/2020 04:30:00 PM EDT 1.25 mg Intravitreal completed Proliferative diabetic retinopathy of both eyes associated with type 2 diabetes mellitus, unspecified proliferative retinopathy type 1 .25 mg, Intravitreal, Once, On Sat09/12/20 at 1630, For 1 dose [facility] Proliferative diabetic retinopathy of olaf th eyes associated with type 2 diabetes mellitus, unspecified proliferative retinopathy type Medication administered onsite bevacizumab-awwb (MVASI) 3.25 mg/0.13 mL intravitreal injection 1.25 mg [id number]&* 09/12/2020 04:30:00 PM EDT 1.25 mg Intravitreal completed Proliferative diabetic retinopathy of both eyes associated with type 2 diabetes mellitus, unspecified proliferative retinopathy type 1 .25 mg, Intravitreal, Once, On Sat09/12/20 at 1630, For 1 dose [facility] Proliferative diabetic retinopathy of olaf th eyes associated with type 2 diabetes mellitus, unspecified proliferative retinopathy type Medication administered onsite Proparacaine hydrochloride 5 MG/ML Ophth almic Solution proparacaine (ALCAINE) 0.5 % ophthalmic solution 1 drop proparacaine (ALCAINE) 0.5 % ophthalmic solution 1 drop 09/12/2020 04:19:42 PM EDT 1 [drp] Left Eye completed Proliferative diabetic retinopathy of both eyes associated with type 2 diabetes mellitus, unspecified proliferative retinopathy type 1 drop, Left Eye, Every 2 min PRN, Other, Starting on Sat09/12/20 at 1619, For 3 doses
1 drop every 2- 3 min x3
[facility] Proliferative diabetic retinopathy of olaf th eyes associated with type 2 diabetes mellitus, unspecified proliferative retinopathy type Medication administered onsite Lidocaine Hydrochloride 0.035 MG/MG Opht halmic Gel lidocaine (XYLOCAINE) 3.5 % ophthalmic gel 1 mL lidocaine (XYLOCAINE) 3.5 % ophthalmic gel 1 mL 2020 04:19:42 PM EDT 1 mL Left Eye completed Prol iferative diabetic retinopathy of both eyes associated with type 2 diabetes mellitus, unspecified proliferative retinopathy type 1 mL, Left Eye, PRN, Pa in, Starting on Sat09/12/20 at 1619, For 1 dose [facility] Proliferative diabetic retinopathy of olaf th eyes associated with type 2 diabetes mellitus, unspecified proliferative retinopathy type Medication administered onsite Lidocaine Hydrochloride 0.035 MG/MG Opht halmic Gel lidocaine (XYLOCAINE) 3.5 % ophthalmic gel 1 mL lidocaine (XYLOCAINE) 3.5 % ophthalmic gel 1 mL 2020 04:19:41 PM EDT 1 mL Right Eye completed Prol iferative diabetic retinopathy of both eyes associated with type 2 diabetes mellitus, unspecified proliferative retinopathy type 1 mL, Right Eye, PRN, P ain, Starting on Sat09/12/20 at 1619, For 1 dose [facility] Proliferative diabetic retinopathy of olaf th eyes associated with type 2 diabetes mellitus, unspecified proliferative retinopathy type Medication administered onsite Proparacaine hydrochloride 5 MG/ML Ophth almic Solution proparacaine (ALCAINE) 0.5 % ophthalmic solution 1 drop proparacaine (ALCAINE) 0.5 % ophthalmic solution 1 drop 09/12/2020 04:19:41 PM EDT 1 [drp] Right Eye completed Proliferative diabetic retinopathy of both eyes associated with type 2 diabetes mellitus, unspecified proliferative retinopathy type 1 drop, Right Eye, Every 2 min PRN, Other, Starting on Sat09/12/20 at 1619, For 3 doses
1 drop every 2-3 min x3
[facility] Proliferative diabetic retinopathy of olaf th eyes associated with type 2 diabetes mellitus, unspecified proliferative retinopathy type Medication administered onsite Proparacaine hydrochloride 5 MG/ML Ophth almic Solution proparacaine (ALCAINE) 0.5 % ophthalmic solution 1 drop proparacaine (ALCAINE) 0.5 % ophthalmic solution 1 drop 09/12/2020 03:00:00 PM EDT 1 [drp] Both Eyes completed 1 drop, Both Eyes, Once, On Sat09/12/20 at 1500, For 1 dose [facility] Medication administered onsite Phenylephrine Hydrochloride 25 MG/ML Oph thalmic Solution phenylephrine (MYDFRIN) 2.5 % ophthalmic solution 1 drop phenylephrine (MYDFRIN) 2.5 % ophthalmic solution 1 drop 09/12/2020 03:00:00 PM EDT 1 [drp] Both Eyes completed 1 drop, Both Eyes, Once, On Sat09/12/20 at 1500, For 1 dose [facility] Medication administered onsite Tropicamide 10 MG/ML Ophthalmic Solution tropicamide (MYDRIACYL) 1 % ophthalmic solution 1 drop tropicamide (MYDRIACYL) 1 % ophthalmic solution 1 drop 09/12/2020 03:00:00 PM EDT 1 [drp] Both Eyes completed 1 drop, Both Eyes, Once, On Sat09/12/20 at 1500, For 1 dose [facility] Medication administered onsite Meclizine Hydrochloride 25 MG Oral Tablet Meclizine Hy drochloride 25 mg Meclizine Hydrochloride 25 mg 08/25/2020 12:00:00 AM EDT 1.0 {tab(s)} active Meclizine Hydrochloride 25 mg eC W1 ([facility]) Meclizine Hydrochloride 25 MG Oral Tablet Meclizine Hy drochloride 25 mg Meclizine Hydrochloride 25 mg 08/25/2020 12:00:00 AM EDT 1.0 {tab(s)} active Meclizine Hydrochloride 25 mg eC W1 ([facility]) Meclizine Hydrochloride 25 MG Oral Tablet Meclizine Hy drochloride 25 mg Meclizine Hydrochloride 25 mg 08/25/2020 12:00:00 AM EDT 1.0 {tab(s)} active Meclizine Hydrochloride 25 mg eC W1 ([facility]) Meclizine Hydrochloride 25 MG Oral Tablet Meclizine Hy drochloride 25 mg Meclizine Hydrochloride 25 mg 08/25/2020 12:00:00 AM EDT 1.0 {tab(s)} active Meclizine Hydrochloride 25 mg eC W1 ([facility]) Meclizine Hydrochloride 25 MG Oral Tablet Meclizine Hy drochloride 25 mg Meclizine Hydrochloride 25 mg 08/25/2020 12:00:00 AM EDT 1.0 {tab(s)} active Meclizine Hydrochloride 25 mg eC W1 ([facility]) Meclizine Hydrochloride 25 MG Oral Tablet Meclizine Hy drochloride 25 mg Meclizine Hydrochloride 25 mg 08/25/2020 12:00:00 AM EDT 1.0 {tab(s)} active Meclizine Hydrochloride 25 mg eC W1 ([facility]) Meclizine Hydrochloride 25 MG Oral Tablet Meclizine Hy drochloride 25 mg Meclizine Hydrochloride 25 mg 08/25/2020 12:00:00 AM EDT 1.0 {tab(s)} active Meclizine Hydrochloride 25 mg eC W1 ([facility]) Meclizine Hydrochloride 25 MG Oral Tablet Meclizine Hy drochloride 25 mg Meclizine Hydrochloride 25 mg 08/25/2020 12:00:00 AM EDT 1.0 {tab(s)} active Meclizine Hydrochloride 25 mg eC W1 ([facility]) Hydrocortisone/Neomycin/Polymyxin B, Otic 1%-0.35%-100 00 units/mL Hydrocortisone/Neomycin/Polymyxin B, Otic 1%-0.35%-23708 units/mL 05/18/2020 12:00:00 AM EST 2.0 {gtt} active Hydrocortisone/Neomycin/Polymyxin B, Otic 1%-0.35%-20464 units/mL eCW1 ([facility]) Hydrocortisone/Neomycin/Polymyxin B, Otic 1%-0.35%-100 00 units/mL Hydrocortisone/Neomycin/Polymyxin B, Otic 1%-0.35%-79707 units/mL 05/18/2020 12:00:00 AM EST 2.0 {gtt} active Hydrocortisone/Neomycin/Polymyxin B, Otic 1%-0.35%-67296 units/mL eCW1 ([facility]) Hydrocortisone/Neomycin/Polymyxin B, Otic 1%-0.35%-100 00 units/mL Hydrocortisone/Neomycin/Polymyxin B, Otic 1%-0.35%-08700 units/mL 05/18/2020 12:00:00 AM EST 2.0 {gtt} active Hydrocortisone/Neomycin/Polymyxin B, Otic 1%-0.35%-77680 units/mL eCW1 ([facility]) Hydrocortisone/Neomycin/Polymyxin B, Otic 1%-0.35%-100 00 units/mL Hydrocortisone/Neomycin/Polymyxin B, Otic 1%-0.35%-91436 units/mL 05/18/2020 12:00:00 AM EST 2.0 {gtt} active Hydrocortisone/Neomycin/Polymyxin B, Otic 1%-0.35%-22072 units/mL eCW1 ([facility]) Hydrocortisone/Neomycin/Polymyxin B, Otic 1%-0.35%-100 00 units/mL Hydrocortisone/Neomycin/Polymyxin B, Otic 1%-0.35%-04329 units/mL 05/18/2020 12:00:00 AM EST 2.0 {gtt} active Hydrocortisone/Neomycin/Polymyxin B, Otic 1%-0.35%-70995 units/mL eCW1 ([facility]) Hydrocortisone/Neomycin/Polymyxin B, Otic 1%-0.35%-100 00 units/mL Hydrocortisone/Neomycin/Polymyxin B, Otic 1%-0.35%-96666 units/mL 05/18/2020 12:00:00 AM EST 2.0 {gtt} active Hydrocortisone/Neomycin/Polymyxin B, Otic 1%-0.35%-55632 units/mL eCW1 ([facility]) Hydrocortisone/Neomycin/Polymyxin B, Otic 1%-0.35%-100 00 units/mL Hydrocortisone/Neomycin/Polymyxin B, Otic 1%-0.35%-96923 units/mL 05/18/2020 12:00:00 AM EST 2.0 {gtt} active Hydrocortisone/Neomycin/Polymyxin B, Otic 1%-0.35%-97866 units/mL eCW1 ([facility]) Hydrocortisone/Neomycin/Polymyxin B, Otic 1%-0.35%-100 00 units/mL Hydrocortisone/Neomycin/Polymyxin B, Otic 1%-0.35%-31069 units/mL 05/18/2020 12:00:00 AM EST 2.0 {gtt} active Hydrocortisone/Neomycin/Polymyxin B, Otic 1%-0.35%-62053 units/mL eCW1 ([facility]) Hydrocortisone/Neomycin/Polymyxin B, Otic 1%-0.35%-100 00 units/mL Hydrocortisone/Neomycin/Polymyxin B, Otic 1%-0.35%-68326 units/mL 05/18/2020 12:00:00 AM EST 2.0 {gtt} active Hydrocortisone/Neomycin/Polymyxin B, Otic 1%-0.35%-14258 units/mL eCW1 ([facility]) Hydrocortisone/Neomycin/Polymyxin B, Otic 1%-0.35%-100 00 units/mL Hydrocortisone/Neomycin/Polymyxin B, Otic 1%-0.35%-28445 units/mL 05/18/2020 12:00:00 AM EST 2.0 {gtt} active Hydrocortisone/Neomycin/Polymyxin B, Otic 1%-0.35%-72125 units/mL eCW1 ([facility]) Hydrocortisone/Neomycin/Polymyxin B, Otic 1%-0.35%-100 00 units/mL Hydrocortisone/Neomycin/Polymyxin B, Otic 1%-0.35%-73021 units/mL 05/18/2020 12:00:00 AM EST 2.0 {gtt} active Hydrocortisone/Neomycin/Polymyxin B, Otic 1%-0.35%-58499 units/mL eCW1 ([facility]) Hydrocortisone/Neomycin/Polymyxin B, Otic 1%-0.35%-100 00 units/mL Hydrocortisone/Neomycin/Polymyxin B, Otic 1%-0.35%-07204 units/mL 05/18/2020 12:00:00 AM EST 2.0 {gtt} active Hydrocortisone/Neomycin/Polymyxin B, Otic 1%-0.35%-52571 units/mL eCW1 ([facility]) Hydrocortisone/Neomycin/Polymyxin B, Otic 1%-0.35%-100 00 units/mL Hydrocortisone/Neomycin/Polymyxin B, Otic 1%-0.35%-39162 units/mL 05/18/2020 12:00:00 AM EST 2.0 {gtt} active Hydrocortisone/Neomycin/Polymyxin B, Otic 1%-0.35%-63363 units/mL eCW1 ([facility]) Hydrocortisone/Neomycin/Polymyxin B, Otic 1%-0.35%-100 00 units/mL Hydrocortisone/Neomycin/Polymyxin B, Otic 1%-0.35%-25497 units/mL 05/18/2020 12:00:00 AM EST 2.0 {gtt} active Hydrocortisone/Neomycin/Polymyxin B, Otic 1%-0.35%-04926 units/mL eCW1 ([facility]) Hydrocortisone/Neomycin/Polymyxin B, Otic 1%-0.35%-100 00 units/mL Hydrocortisone/Neomycin/Polymyxin B, Otic 1%-0.35%-68670 units/mL 05/18/2020 12:00:00 AM EST 2.0 {gtt} active Hydrocortisone/Neomycin/Polymyxin B, Otic 1%-0.35%-43931 units/mL eCW1 ([facility]) Hydrocortisone/Neomycin/Polymyxin B, Otic 1%-0.35%-100 00 units/mL Hydrocortisone/Neomycin/Polymyxin B, Otic 1%-0.35%-68678 units/mL 05/18/2020 12:00:00 AM EST 2.0 {gtt} active Hydrocortisone/Neomycin/Polymyxin B, Otic 1%-0.35%-37741 units/mL eCW1 ([facility]) Hydrocortisone/Neomycin/Polymyxin B, Otic 1%-0.35%-100 00 units/mL Hydrocortisone/Neomycin/Polymyxin B, Otic 1%-0.35%-63307 units/mL 05/18/2020 12:00:00 AM EST 2.0 {gtt} active Hydrocortisone/Neomycin/Polymyxin B, Otic 1%-0.35%-83781 units/mL eCW1 ([facility]) Hydrocortisone/Neomycin/Polymyxin B, Otic 1%-0.35%-100 00 units/mL Hydrocortisone/Neomycin/Polymyxin B, Otic 1%-0.35%-57138 units/mL 05/18/2020 12:00:00 AM EST 2.0 {gtt} active Hydrocortisone/Neomycin/Polymyxin B, Otic 1%-0.35%-34362 units/mL eCW1 ([facility]) Hydrocortisone/Neomycin/Polymyxin B, Otic 1%-0.35%-100 00 units/mL Hydrocortisone/Neomycin/Polymyxin B, Otic 1%-0.35%-60025 units/mL 05/18/2020 12:00:00 AM EST 2.0 {gtt} active Hydrocortisone/Neomycin/Polymyxin B, Otic 1%-0.35%-53760 units/mL eCW1 ([facility]) Hydrocortisone/Neomycin/Polymyxin B, Otic 1%-0.35%-100 00 units/mL Hydrocortisone/Neomycin/Polymyxin B, Otic 1%-0.35%-92703 units/mL 05/18/2020 12:00:00 AM EST 2.0 {gtt} active Hydrocortisone/Neomycin/Polymyxin B, Otic 1%-0.35%-14592 units/mL eCW1 ([facility]) Hydrocortisone/Neomycin/Polymyxin B, Otic 1%-0.35%-100 00 units/mL Hydrocortisone/Neomycin/Polymyxin B, Otic 1%-0.35%-55504 units/mL 05/18/2020 12:00:00 AM EST 2.0 {gtt} active Hydrocortisone/Neomycin/Polymyxin B, Otic 1%-0.35%-91701 units/mL eCW1 ([facility]) Hydrocortisone/Neomycin/Polymyxin B, Otic 1%-0.35%-100 00 units/mL Hydrocortisone/Neomycin/Polymyxin B, Otic 1%-0.35%-02413 units/mL 05/18/2020 12:00:00 AM EST 2.0 {gtt} active Hydrocortisone/Neomycin/Polymyxin B, Otic 1%-0.35%-97442 units/mL eCW1 ([facility]) Hydrocortisone/Neomycin/Polymyxin B, Otic 1%-0.35%-100 00 units/mL Hydrocortisone/Neomycin/Polymyxin B, Otic 1%-0.35%-00177 units/mL 05/18/2020 12:00:00 AM EST 2.0 {gtt} active Hydrocortisone/Neomycin/Polymyxin B, Otic 1%-0.35%-27789 units/mL eCW1 ([facility]) Hydrocortisone/Neomycin/Polymyxin B, Otic 1%-0.35%-100 00 units/mL Hydrocortisone/Neomycin/Polymyxin B, Otic 1%-0.35%-73039 units/mL 05/18/2020 12:00:00 AM EST 2.0 {gtt} active Hydrocortisone/Neomycin/Polymyxin B, Otic 1%-0.35%-91454 units/mL eCW1 ([facility]) Hydrocortisone/Neomycin/Polymyxin B, Otic 1%-0.35%-100 00 units/mL Hydrocortisone/Neomycin/Polymyxin B, Otic 1%-0.35%-72810 units/mL 05/18/2020 12:00:00 AM EST 2.0 {gtt} active Hydrocortisone/Neomycin/Polymyxin B, Otic 1%-0.35%-60153 units/mL eCW1 ([facility]) Hydrocortisone/Neomycin/Polymyxin B, Otic 1%-0.35%-100 00 units/mL Hydrocortisone/Neomycin/Polymyxin B, Otic 1%-0.35%-31517 units/mL 05/18/2020 12:00:00 AM EST 2.0 {gtt} active Hydrocortisone/Neomycin/Polymyxin B, Otic 1%-0.35%-87295 units/mL eCW1 ([facility]) Hydrocortisone/Neomycin/Polymyxin B, Otic 1%-0.35%-100 00 units/mL Hydrocortisone/Neomycin/Polymyxin B, Otic 1%-0.35%-85794 units/mL 05/18/2020 12:00:00 AM EST 2.0 {gtt} active Hydrocortisone/Neomycin/Polymyxin B, Otic 1%-0.35%-64369 units/mL eCW1 ([facility]) Hydrocortisone/Neomycin/Polymyxin B, Otic 1%-0.35%-100 00 units/mL Hydrocortisone/Neomycin/Polymyxin B, Otic 1%-0.35%-53210 units/mL 05/18/2020 12:00:00 AM EST 2.0 {gtt} active Hydrocortisone/Neomycin/Polymyxin B, Otic 1%-0.35%-63445 units/mL eCW1 ([facility]) Hydrocortisone/Neomycin/Polymyxin B, Otic 1%-0.35%-100 00 units/mL Hydrocortisone/Neomycin/Polymyxin B, Otic 1%-0.35%-97973 units/mL 05/18/2020 12:00:00 AM EST 2.0 {gtt} active Hydrocortisone/Neomycin/Polymyxin B, Otic 1%-0.35%-78307 units/mL eCW1 ([facility]) Hydrocortisone/Neomycin/Polymyxin B, Otic 1%-0.35%-100 00 units/mL Hydrocortisone/Neomycin/Polymyxin B, Otic 1%-0.35%-43003 units/mL 05/18/2020 12:00:00 AM EST 2.0 {gtt} active Hydrocortisone/Neomycin/Polymyxin B, Otic 1%-0.35%-78509 units/mL eCW1 ([facility]) Hydrocortisone/Neomycin/Polymyxin B, Otic 1%-0.35%-100 00 units/mL Hydrocortisone/Neomycin/Polymyxin B, Otic 1%-0.35%-25679 units/mL 05/18/2020 12:00:00 AM EST 2.0 {gtt} active Hydrocortisone/Neomycin/Polymyxin B, Otic 1%-0.35%-82720 units/mL eCW1 ([facility]) Hydrocortisone/Neomycin/Polymyxin B, Otic 1%-0.35%-100 00 units/mL Hydrocortisone/Neomycin/Polymyxin B, Otic 1%-0.35%-97612 units/mL 05/18/2020 12:00:00 AM EST 2.0 {gtt} active Hydrocortisone/Neomycin/Polymyxin B, Otic 1%-0.35%-49387 units/mL eCW1 ([facility]) Ofloxacin 3 MG/ML Otic Solution ofloxacin otic 0.3% ofloxaci n otic 0.3% 05/17/2020 12:00:00 AM EST 5.0 {gtt} active ofloxacin otic 0.3% eCW1 ([facility]) Ofloxacin 3 MG/ML Otic Solution ofloxacin otic 0.3% ofloxaci n otic 0.3% 05/17/2020 12:00:00 AM EST 5.0 {gtt} active ofloxacin otic 0.3% eCW1 ([facility]) Ofloxacin 3 MG/ML Otic Solution ofloxacin otic 0.3% ofloxaci n otic 0.3% 05/17/2020 12:00:00 AM EST 5.0 {gtt} active ofloxacin otic 0.3% eCW1 ([facility]) Ofloxacin 3 MG/ML Otic Solution ofloxacin otic 0.3% ofloxaci n otic 0.3% 05/17/2020 12:00:00 AM EST 5.0 {gtt} active ofloxacin otic 0.3% eCW1 ([facility]) Ofloxacin 3 MG/ML Otic Solution ofloxacin otic 0.3% ofloxaci n otic 0.3% 05/17/2020 12:00:00 AM EST 5.0 {gtt} active ofloxacin otic 0.3% eCW1 ([facility]) Ofloxacin 3 MG/ML Otic Solution ofloxacin otic 0.3% ofloxaci n otic 0.3% 05/17/2020 12:00:00 AM EST 5.0 {gtt} active ofloxacin otic 0.3% eCW1 ([facility]) Loperamide Hydrochloride 2 MG Oral Tablet [Imodium] Im odium A-D 2 mg Imodium A-D 2 mg 04/28/2020 12:00:00 AM EST 1.0 {tab(s)} activ e Imodium A-D 2 mg eCW1 ([facility]) Loperamide Hydrochloride 2 MG Oral Tablet [Imodium] Im odium A-D 2 mg Imodium A-D 2 mg 04/28/2020 12:00:00 AM EST 1.0 {tab(s)} activ e Imodium A-D 2 mg eCW1 ([facility]) Loperamide Hydrochloride 2 MG Oral Tablet [Imodium] Im odium A-D 2 mg Imodium A-D 2 mg 04/28/2020 12:00:00 AM EST 1.0 {tab(s)} activ e Imodium A-D 2 mg eCW1 ([facility]) WHEAT DEXTRIN 3500 MG Oral Powder [Benefiber] Benefiber 100% Benefiber 100% 04/28/2020 12:00:00 AM EST active Benefiber 100% eCW1 ([facility]) WHEAT DEXTRIN 3500 MG Oral Powder [Benefiber] Benefiber 100% Benefiber 100% 04/28/2020 12:00:00 AM EST active Benefiber 100% eCW1 ([facility]) WHEAT DEXTRIN 3500 MG Oral Powder [Benefiber] Benefiber 100% Benefiber 100% 04/28/2020 12:00:00 AM EST active Benefiber 100% eCW1 ([facility]) Loperamide Hydrochloride 2 MG Oral Tablet [Imodium] Im odium A-D 2 mg Imodium A-D 2 mg 04/28/2020 12:00:00 AM EST 1.0 {tab(s)} activ e Imodium A-D 2 mg eCW1 ([facility]) WHEAT DEXTRIN 3500 MG Oral Powder [Benefiber] Benefiber 100% Benefiber 100% 04/28/2020 12:00:00 AM EST active Benefiber 100% eCW1 ([facility]) WHEAT DEXTRIN 3500 MG Oral Powder [Benefiber] Benefiber 100% Benefiber 100% 04/28/2020 12:00:00 AM EST active Benefiber 100% eCW1 ([facility]) WHEAT DEXTRIN 3500 MG Oral Powder [Benefiber] Benefiber 100% Benefiber 100% 04/28/2020 12:00:00 AM EST active Benefiber 100% eCW1 ([facility]) Loperamide Hydrochloride 2 MG Oral Tablet [Imodium] Im odium A-D 2 mg Imodium A-D 2 mg 04/28/2020 12:00:00 AM EST 1.0 {tab(s)} activ e Imodium A-D 2 mg eCW1 ([facility]) WHEAT DEXTRIN 3500 MG Oral Powder [Benefiber] Benefiber 100% Benefiber 100% 04/28/2020 12:00:00 AM EST active Benefiber 100% eCW1 ([facility]) Loperamide Hydrochloride 2 MG Oral Tablet [Imodium] Im odium A-D 2 mg Imodium A-D 2 mg 04/28/2020 12:00:00 AM EST 1.0 {tab(s)} activ e Imodium A-D 2 mg eCW1 ([facility]) Loperamide Hydrochloride 2 MG Oral Tablet [Imodium] Im odium A-D 2 mg Imodium A-D 2 mg 04/28/2020 12:00:00 AM EST 1.0 {tab(s)} activ e Imodium A-D 2 mg eCW1 ([facility]) doxycycline hyclate 100 MG Oral Capsule Doxycycline Hy clate hyclate 100 mg Doxycycline Hyclate hyclate 100 mg 04/15/2020 12:00:00 AM EST 1.0 { cap(s)} active Doxycycline Hyclate hycla te 100 mg eCW1 ([facility]) doxycycline hyclate 100 MG Oral Capsule Doxycycline Hy clate hyclate 100 mg Doxycycline Hyclate hyclate 100 mg 04/15/2020 12:00:00 AM EST 1.0 { cap(s)} active Doxycycline Hyclate hycla te 100 mg eCW1 ([facility]) doxycycline hyclate 100 MG Oral Capsule Doxycycline Hy clate hyclate 100 mg Doxycycline Hyclate hyclate 100 mg 04/15/2020 12:00:00 AM EST 1.0 { cap(s)} active Doxycycline Hyclate hycla te 100 mg eCW1 ([facility]) doxycycline hyclate 100 MG Oral Capsule Doxycycline Hy clate hyclate 100 mg Doxycycline Hyclate hyclate 100 mg 04/15/2020 12:00:00 AM EST 1.0 { cap(s)} active Doxycycline Hyclate hycla te 100 mg eCW1 ([facility]) doxycycline hyclate 100 MG Oral Capsule Doxycycline Hy clate hyclate 100 mg Doxycycline Hyclate hyclate 100 mg 04/15/2020 12:00:00 AM EST 1.0 { cap(s)} active Doxycycline Hyclate hycla te 100 mg eCW1 ([facility]) doxycycline hyclate 100 MG Oral Capsule Doxycycline Hy clate hyclate 100 mg Doxycycline Hyclate hyclate 100 mg 04/15/2020 12:00:00 AM EST 1.0 { cap(s)} active Doxycycline Hyclate hycla te 100 mg eCW1 ([facility]) doxycycline hyclate 100 MG Oral Capsule Doxycycline Hy clate hyclate 100 mg Doxycycline Hyclate hyclate 100 mg 04/15/2020 12:00:00 AM EST 1.0 { cap(s)} active Doxycycline Hyclate hycla te 100 mg eCW1 ([facility]) doxycycline hyclate 100 MG Oral Capsule Doxycycline Hy clate hyclate 100 mg Doxycycline Hyclate hyclate 100 mg 04/15/2020 12:00:00 AM EST 1.0 { cap(s)} active Doxycycline Hyclate hycla te 100 mg eCW1 ([facility]) doxycycline hyclate 100 MG Oral Capsule Doxycycline Hy clate hyclate 100 mg Doxycycline Hyclate hyclate 100 mg 04/15/2020 12:00:00 AM EST 1.0 { cap(s)} active Doxycycline Hyclate hycla te 100 mg eCW1 ([facility]) silver sulfadiazine 10 MG/ML Topical Cream [SSD] SSD 1% SSD 1% 02/19/2020 12:00:00 AM EST 1.0 {kim} active SSD 1 % eCW1 ([facility]) silver sulfadiazine 10 MG/ML Topical Cream [SSD] SSD 1% SSD 1% 02/19/2020 12:00:00 AM EST 1.0 {kim} active SSD 1 % eCW1 ([facility]) silver sulfadiazine 10 MG/ML Topical Cream [SSD] SSD 1% SSD 1% 02/19/2020 12:00:00 AM EST 1.0 {kim} active SSD 1 % eCW1 ([facility]) silver sulfadiazine 10 MG/ML Topical Cream [SSD] SSD 1% SSD 1% 02/19/2020 12:00:00 AM EST 1.0 {kim} active SSD 1 % eCW1 ([facility]) silver sulfadiazine 10 MG/ML Topical Cream [SSD] SSD 1% SSD 1% 02/19/2020 12:00:00 AM EST 1.0 {kim} active SSD 1 % eCW1 ([facility]) silver sulfadiazine 10 MG/ML Topical Cream [SSD] SSD 1% SSD 1% 02/19/2020 12:00:00 AM EST 1.0 {kim} active SSD 1 % eCW1 ([facility]) silver sulfadiazine 10 MG/ML Topical Cream [SSD] SSD 1% SSD 1% 02/19/2020 12:00:00 AM EST 1.0 {kim} active SSD 1 % eCW1 ([facility]) silver sulfadiazine 10 MG/ML Topical Cream [SSD] SSD 1% SSD 1% 02/19/2020 12:00:00 AM EST 1.0 {kim} active SSD 1 % eCW1 ([facility]) silver sulfadiazine 10 MG/ML Topical Cream [SSD] SSD 1% SSD 1% 02/19/2020 12:00:00 AM EST 1.0 {kim} active SSD 1 % eCW1 ([facility]) silver sulfadiazine 10 MG/ML Topical Cream [SSD] SSD 1% SSD 1% 02/19/2020 12:00:00 AM EST 1.0 {kim} active SSD 1 % eCW1 ([facility]) silver sulfadiazine 10 MG/ML Topical Cream [SSD] SSD 1% SSD 1% 02/19/2020 12:00:00 AM EST 1.0 {kim} active SSD 1 % eCW1 ([facility]) silver sulfadiazine 10 MG/ML Topical Cream [SSD] SSD 1% SSD 1% 02/19/2020 12:00:00 AM EST 1.0 {kim} active SSD 1 % eCW1 ([facility]) silver sulfadiazine 10 MG/ML Topical Cream [SSD] SSD 1% SSD 1% 02/19/2020 12:00:00 AM EST 1.0 {kim} active SSD 1 % eCW1 ([facility]) silver sulfadiazine 10 MG/ML Topical Cream [SSD] SSD 1% SSD 1% 02/19/2020 12:00:00 AM EST 1.0 {kim} active SSD 1 % eCW1 ([facility]) silver sulfadiazine 10 MG/ML Topical Cream [SSD] SSD 1% SSD 1% 02/19/2020 12:00:00 AM EST 1.0 {kim} active SSD 1 % eCW1 ([facility]) silver sulfadiazine 10 MG/ML Topical Cream [SSD] SSD 1% SSD 1% 02/19/2020 12:00:00 AM EST 1.0 {kim} active SSD 1 % eCW1 ([facility]) silver sulfadiazine 10 MG/ML Topical Cream [SSD] SSD 1% SSD 1% 02/19/2020 12:00:00 AM EST 1.0 {kim} active SSD 1 % eCW1 ([facility]) silver sulfadiazine 10 MG/ML Topical Cream [SSD] SSD 1% SSD 1% 02/19/2020 12:00:00 AM EST 1.0 {kim} active SSD 1 % eCW1 ([facility]) silver sulfadiazine 10 MG/ML Topical Cream [SSD] SSD 1% SSD 1% 02/19/2020 12:00:00 AM EST 1.0 {kim} active SSD 1 % eCW1 ([facility]) silver sulfadiazine 10 MG/ML Topical Cream [SSD] SSD 1% SSD 1% 02/19/2020 12:00:00 AM EST 1.0 {kim} active SSD 1 % eCW1 ([facility]) silver sulfadiazine 10 MG/ML Topical Cream [SSD] SSD 1% SSD 1% 02/19/2020 12:00:00 AM EST 1.0 {kim} active SSD 1 % eCW1 ([facility]) silver sulfadiazine 10 MG/ML Topical Cream [SSD] SSD 1% SSD 1% 02/19/2020 12:00:00 AM EST 1.0 {kim} active SSD 1 % eCW1 ([facility]) silver sulfadiazine 10 MG/ML Topical Cream [SSD] SSD 1% SSD 1% 02/19/2020 12:00:00 AM EST 1.0 {kim} active SSD 1 % eCW1 ([facility]) silver sulfadiazine 10 MG/ML Topical Cream [SSD] SSD 1% SSD 1% 02/19/2020 12:00:00 AM EST 1.0 {kim} active SSD 1 % eCW1 ([facility]) silver sulfadiazine 10 MG/ML Topical Cream [SSD] SSD 1% SSD 1% 02/19/2020 12:00:00 AM EST 1.0 {kim} active SSD 1 % eCW1 ([facility]) silver sulfadiazine 10 MG/ML Topical Cream [SSD] SSD 1% SSD 1% 02/19/2020 12:00:00 AM EST 1.0 {kim} active SSD 1 % eCW1 ([facility]) Insurance Providers Payer name Policy type / Coverage type Policy ID Covered republican ID Covered republican's relationship to [place] Policy [place] Plan Information MEDICARE/NATIONAL GOVT SVCS [id number] SP [id number] MEDICARE/NATIONAL GOVT SVCS [id number] SP [id number] MEDICARE [id number] S [id number] MEDICARE A [id number] Self [id number] MEDICARE/NATIONAL GOVT SVCS [id number] SP [id number] [place]IC[place] [id number] SP [id number] [place] [id number] SP [id number] [place] [id number] SP [id number] [facility] MEDICAID [id number] SP [id number] H MEDICAID [id number] Self [id number] [facility]-Medicaid [id number] ANSI-Medicare Part B [id number] ANSI-Medicaid [id number] [facility]-Medicare Part B [id number] [place] [id number] SP [id number] [facility] MEDICAID [id number] SP [id number] [place]IC[place] [id number] SP [id number] [facility] MEDICAID [id number] SP [id number] H [place]IC[place] [id number] SP [id number] [place]ICARE [place] [id number] SP [id number] MEDICARE [id number] SP [id number] [place]IC[place] [id number] SP [id number] MEDICAID PROF FEES [id number] S [id number] MEDICAID [id number] S [id number] [id number] S [id number] A MEDICAID [id number] Other [id number] MEDICARE [id number] Other [id number] [facility] MEDICAID [id number] SP [id number] H OTHER ECW 1 Other ANSI-Medicaid [id number] ANSI-Medicare Part B [id number] Problems, Conditions, and Diagnoses Code Display Name Description Problem Type Effective Dates Data Source(s) 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, bilateral Traction detachment of retina, bilateral Diagnosis 01/24/2021 08:51:56 AM [facility] 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, left eye, 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, left eye, mild stage Diagnosis 01/24/2021 08:51:54 AM [facility] H57.12 Ocular pain, left eye Ocular pain, left eye Diagnosis 01/24/2021 08:51:54 AM [facility] H54.40 Blindness, one eye, unspecified eye Blindness, o ne eye, unspecified eye Diagnosis 01/24/2021 08:51:54 AM [facility] H21.02 Hyphema, left eye Hyphema, left eye Diagnosis 01/24/2021 07:57:10 AM [facility] 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, bilateral Type 2 diabetes mellitus with proliferat catalina diabetic retinopathy without macular edema, bilateral Diagnosis 12/15/2020 01:35:30 PM [facility] I10 Essential (primary) hypertension ESSENTIAL (PRIMARY) H YPERTENSION Diagnosis 12/09/2020 07:59:00 AM [facility] E55.9 Vitamin D deficiency, unspecified VITAMIN D DEFI CIENCY, UNSPECIFIED Diagnosis 12/09/2020 07:59:00 AM [facility] K21.9 Gastro-esophageal reflux disease without esophagitis GASTRO-ESOPHAGEAL REFLUX DISEASE WITHOUT Diagnosis 12/09/2020 07[facility]59[facility] E78.00 PURE HYPERCHOLESTEROLEMIA, UNSPECIFIED P URE HYPERCHOLESTEROLEMIA, UNSPECIFIED Diagnosis 12/09/2020 07:59:00 AM [facility] E11.65 Type 2 diabetes mellitus with hyperglyce joleen TYPE 2 DIABETES MELLITUS WITH HYPERGLYCEMIA Diagnosis 12/09/2020 07:59:00 AM [facility] Z79.4 long term acute care registered nurse (current) use of insulin PENITENTIARY (CU RRENT) USE OF INSULIN Diagnosis 11/10/2020 12:59:00 PM [facility] B35.1 Tinea unguium TINEA UNGUIUM Diagnosis 11/10/2020 12:59:00 PM [facility] E11.42 Type 2 diabetes mellitus with diabetic p olyneuropathy TYPE 2 DIABETES MELLITUS WITH DIABETIC POLYNEUROPATHY Diagnosis 11/10/2020 12:59:00 PM [facility] I10 Essential (primary) hypertension ESSENTIAL (PRIMARY) H YPERTENSION Diagnosis 10/25/2020 03:05:00 PM [facility] E78.5 Hyperlipidemia, unspecified HYPERLIPIDEMIA, UNSPECIFIE D Diagnosis 10/25/2020 03:05:00 PM [facility] E11.65 Type 2 diabetes mellitus with hyperglyce joleen TYPE 2 DIABETES MELLITUS WITH HYPERGLYCEMIA Diagnosis 10/25/2020 03:05:00 PM [facility] 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 Diagnosis 09/29/19 08:10:00 AM [facility] Z01.812 Encounter for preprocedural laboratory e xamination ENCOUNTER FOR PREPROCEDURAL LABORATORY E Diagnosis 09/23/2020 10:02:00 AM [facility] Z20.822 CONTACT WITH AND (SUSPECTED) EXPOSURE TO COVID-19 CONTACT WITH AND (SUSPECTED) EXPOSURE TO COVID-19 Diagnosis 09/23/2020 10:02:00 AM EDT [facility] Z01.818 Encounter for other preprocedural examin ation ENCOUNTER FOR OTHER PREPROCEDURAL EXAMINATION Diagnosis 09/15/2020 12:14:00 PM EDT [facility] Z79.84 long term acute care registered nurse (current) use of oral hypoglyc emic drugs PENITENTIARY (CURRENT) USE OF ORAL HYPOGLYCEMIC DRUGS Diagnosis 08/24/2020 01:05:00 PM EDT [facility] R41.0 Disorientation, unspecified DISORIENTATION, UNSPECIFIE D Diagnosis 05/05/2020 01:25:[address] [facility] R41.82 Altered mental status, unspecified ALTERED MENTA L STATUS, UNSPECIFIED Diagnosis 05/05/2020 01:25:[address] 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 H90.3 [id number] Bilateral sensorineural hearing loss Prob tee 01/05/2021 12:00:00 AM EDT eCW1 ([facility]) H43.9 [id number] Unspecified disorder of vitreous body Pro blem 11/28/2020 12:00:00 AM EDT eCW1 ([facility]) H35.9 [id number] Unspecified retinal disorder Problem 021 12:00:00 AM EDT eCW1 ([facility]) G47.33 [id number] JAIME (obstructive sleep apnea) Problem 10/07/2020 12:00:00 AM EDT eCW1 ([facility]) E11.319 [id number] Type 2 diabetes adam itus with unspecified diabetic retinopathy without macular edema Problem 05/17/2020 12:00:00 AM EST eCW1 ([facility]) F32.9 [id number] Depression, unspecified depression type P roblem 03/16/2020 12:00:00 AM EST eCW1 ([facility]) K21.9 [id number] Gastroesophageal reflux disease without e sophagitis Problem 03/16/2020 12:00:00 AM EST eCW1 ([facility]) R41.82 [id number] Altered mental status, unspecifi ed altered mental status type Problem 02/19/2020 12:00:00 AM EST eCW1 ([facility]) L89.301 [id number] Pressure injury of paola walker, stage 1, unspecified laterality Problem 02/19/2020 12:00:00 AM EST eCW1 ([facility]) K21.9 [id number] GERD without esophagitis Problem 02/04/2020 12:00:00 AM EST eCW1 ([facility]) Surgeries/Procedures Procedure Description Date Indications Data Source(s) DEBRIDEMENT NAIL ANY METHOD 6/> DEBRIDE NAIL 6 OR MORE 11/10 12:00:00 AM [facility] outpatient clinic visit for assessment and ma nagement of a patient Hospital Outpatient Clinic Visit 10/25/2020 12:00:00 AM [facility] GLUC BLD GLUC MNTR DEV CLEARED FDA SPEC HOME USE GLUCOSE BLO OD TEST 10/25/2020 12:00:00 AM [facility] US EYE B SCAN <td>US EYE B SCAN</td><td>Ro utine</td><td>09/12/2020 4:42 PM EDT</td><td> Proliferative diabetic retinopathy of both eyes associated with type 2 diabetes mellitus, unspecified proliferative retinopathy type</td><td> </td> 09/12/2020 04:42:52 PM EDT Proliferative diabetic retinopathy of olaf th eyes associated with type 2 diabetes mellitus, unspecified proliferative retinopathy type [facility] Proliferative diabetic retinopathy of olaf th eyes associated with type 2 diabetes mellitus, unspecified proliferative retinopathy type MVASI INTRAVITREAL INJECTION - OS - LEFT <td>MVASI INT RAVITREAL INJECTION - OS - LEFT</td><td>Routine</td><td>09/12/2020 4:40 PM EDT</td><td> Proliferative diabetic retinopathy of both eyes associated with type 2 diabetes mellitus, unspecified proliferative retinopathy type</td><td> </td> 09/12/2020 04:40:54 PM EDT Proliferative diabetic retinopathy of olaf th eyes associated with type 2 diabetes mellitus, unspecified proliferative retinopathy type [facility] Proliferative diabetic retinopathy of olaf th eyes associated with type 2 diabetes mellitus, unspecified proliferative retinopathy type MVASI INTRAVITREAL INJECTION - OD - RIGHT <td>MVASI IN TRAVITREAL INJECTION - OD - RIGHT</td><td>Routine</td><td>09/12/2020 4:40 PM EDT</td><td> Proliferative diabetic retinopathy of both eyes associated with type 2 diabetes mellitus, unspecified proliferative retinopathy type</td><td> </td> 09/12/2020 04:40:49 PM EDT Proliferative diabetic retinopathy of olaf th eyes associated with type 2 diabetes mellitus, unspecified proliferative retinopathy type [facility] Proliferative diabetic retinopathy of olaf th eyes associated with type 2 diabetes mellitus, unspecified proliferative retinopathy type Results ID Date Data Source [id number] 01/27/2021 09:01:44 AM EDT [facility] Name Value Range Interpretation Code Description Data Nilsa rce(s) Supporting Document(s) Progress Note [facility] FIFQLe8bLkVASvIv10/VTVupOAClt5LeBJpnRQj6EIpeBFIhD3ObGDZ2aK3mUIG1DRuEGkFpNzKwKKG6 lbm [file] AgICAgICAgICAgICAgICAgICAgICAgICAgICAgICAgICAgICAgICAgICAgICAgICAgICAgICAgICAgIC AgICAgICAgICAgICAgICAgICAgICAgICAgICANCiAgICAgICAgICAgICAgICAgICAgICAgICAgICAgIC AgICAgICAgICAgICAgICAgICAgICAgICAgICAgICAg ICAgICAgICAgICAgICAgICAgICAgICAgICAgICAgICAgICAgICANCiAgICAgICAgICAgICAgICAgICAg ICAgICAgICAgICAgICAgICAgICAgICAgICAgICAgICAgICAgICAgICAgICAgICAgICAgICAgICAgICAg ICAgICAgICAgICAgICAgICAgICANCiAgICAgICAgIC AgICAgICAgICAgICAgICAgICAgICAgICAgICAgICAgICAgICAgICAgICAgICAgICAgICAgICAgICAgIC AgICAgICAgICAgICAgICAgICAgICAgICAgICAgICANCiAgICAgICAgICAgICAgICAgICAgICAgICAgIC AgICAgICAgICAgICAgICAgICAgICAgICAgICAgICAg ICAgICAgICAgICAgICAgICAgICAgICAgICAgICAgICAgICAgICAgICANCiAgICAgICAgICAgICAgICAg ICAgICAgICAgICAgICAgICAgICAgICAgICAgICAgICAgICAgICAgICAgICAgICAgICAgICAgICAgICAg ICAgICAgICAgICAgICAgICAgICAgICANCiAgICAgIC AgICAgICAgICAgICAgICAgICAgICAgICAgICAgICAgICAgICAgICAgICAgICAgICAgICAgICAgICAgIC AgICAgICAgICAgICAgICAgICAgICAgICAgICAgICAgICANCiAgICAgICAgICAgICAgICAgICAgICAgIC AgICAgICAgICAgICAgICAgICAgICAgICAgICAgICAg ICAgICAgICAgICAgICAgICAgICAgICAgICAgICAgICAgICAgICAgICAgICANCiAgICAgICAgICAgICAg ICAgICAgICAgICAgICAgICAgICAgICAgICAgICAgICAgICAgICAgICAgICAgICAgICAgICAgICAgICAg ICAgICAgICAgICAgICAgICAgICAgICAgICANCiAgIC AgICAgICAgICAgICAgICAgICAgICAgICAgICAgICAgICAgICAgICAgICAgICAgICAgICAgICAgICAgIC AgICAgICAgICAgICAgICAgICAgICAgICAgICAgICAgICAgICANCjw/bGVyU4gkxTHcskU3C2mwAg6RTr 1NSC2td5SzCKGtGNpucuRuRbsRTgZjHWHwStwTNgf2 HTiuLG0GuPAdV0PsX6QpGFkuXD1RJDBdGMJqlHAaTQEsWCQpGoW7RQPiPGywFG8EjBTxLEhlSAJsIIMn EwUcXUEuJBQtKXOzSZDoKBHMCY6JRtJiB0DdaO96ROWHBw1+FMvgqrGwAhzBKyY4TSUoj3HaKDh5ZQ0Z RKTjIywoe9InShDtBTOKITgpWE6EDIE7MLQ9URYpQq 3VXVUiN837baQlQL4ZUh1OWrMdTD7lxd3MGaHbRFUuSpxGRoj1JSijCP3VbOKnTIbOab7kdtIwrcLRy6 DzmyTskVCKQXCgCPSTPYJqTQTrzNOra04xLNJHDRHoxUHjNH5sFF8tFBIuKEA0EuIuHYEYGD3SAFTyPW CtyFFgZSQtAXSWND7MIHeePZW5RJXlqyIudNZjUMdh CB0ULNTbcmTrOsZdDHAMKNh+Yb8PDP8px6JhNGqnWtHzKI7ggl8LEDaUNrEhS1W8jQIyU1I5UPsgPe4D ALNcYDAeHnFdSABBZVbxLA6IOH7purY2QT5SeBFlSETeONAceOWeMTo0J63lcDAlLUdeWW1QKNP+Shahid+ Pk3IFXIaUKOsYZNxCwYdINGPVmAyO3AiT9JCz7GtN9 MaWO43vXtcsdKoWOyzPW3LEF8rGFXcJRQSYT6DlSVenM2wmmUwSPIsACGIVlElD49qiUCeSDNgSVD2NE PxOt5NGXIqL8FphjXpmUcaurRkXNKaCVVDAQ5STMleeqPafUOpjEmyQC83eQpsCS3FQo7QCwGaRM5xis 5ExNKeLk8ONHLxKX4NVAWmMYNwNOQrJNQ2OYIaWxVu YFfxMFGqGGEkMZR5VHEbPPMcIR8MQhVcLQVyKyqzSSLkADLrKEGxfl8QBCQfHFRnOBm7DEBdLSZwOQBi XGqoNTLqEWGhMZF4NTIkNVGsTW3GLrPnKAArMXBxPwAsIVWsQONotr5KDIDzAOXvEzByFPLyNATdGKHa AEpsEHUeLON8QZSwEBBpOHOoVG2DHpTaJLKaCFZ0PD QbAMJqNKSnep7YMETqYPSvZAGsUGVmERTtZLUpHShvUUDvNIH0NYDsTLYwIQYpOO4XJuJdDYLpKZX4Sy xjYAAgVTZfed9EGJHoAIDyXOl3TLZrJCBkQWYgSPrhXESyHYOiUOA7AGSyTKSaMQ9DZzQoRRCcFZOpKZ UxGMYrSHBlpx5OVLXlXSGaQiOuIIEmHHUoZJLzNBkf IGIzLIA2PwkhGKSsYUHjFW1QCaHoKAWtBKY4WLLkDPGoQATwab8SISAxULXjEAZ1RnEtVKRdHQJvUNsj XYZbYIG8RZYqRMHfXRNwPC5HMgGvGMAlVyJ7NgnkNKXrBBCprq3OMXGhPQRtJoOnVnSsCRXwUFDgQOzl QSNaGAG4FXo6TIAbHBSfOX9LHtNcJHBlTiqmPfNiBO GdLWWywz7COMGxCHKfAxUbSOIkYQZdRPNlRJfiPGXgQQM0YXccFDWxYKQgSO0MBuAwYYPuFps9FaIeRX SsVXQcyw5AROIzLICrEFZbIwWjDXEhYVIxTFu2neYwkQHqUQj3QH4VT2XpejMuYiyQXx3Up882MGU4CJ MyRn0HV8fdCs7wSLTkNZNSWp5STSw7UQCdGxU9PeZl ASGaLrNzFyp0Q4DuUHOqLKT9RFL6MEU+PEc6C6HxFelcBNEnUBCmBpLhIQJ6MoE3QnZeGKHqJQA3Qm5n XSANCj4+YEtwxDLyiUboXTNTCnX2OfHeDRdnFMEDHw1S ID Date Data Source [id number] 01/24/2021 10:21:09 AM EDT [facility] Name Value Range Interpretation Code Description Data Nilsa rce(s) Supporting Document(s) Progress Note [facility] VENZNr4eUlECVuNe25/RWBvoNKHbh5JyLUgiBSf4VVhuDEYiA0AeMFP0zC7sKWW8UXuGBlCnNlVlCMW2 lbm [file] o7AtOqUiTtMYQ6QC1zRLZFIj1+HOzdtBDxyZlyUICYSzYaRXCmYEsgCHPIVh9U ID Date Data Source [id number] 01/19/2021 09:45:30 PM EDT [facility] Name Value Range Interpretation Code Description Data Nilsa rce(s) Supporting Document(s) Progress Note [facility] OXMVRe2rGzOPBdIr93/GBXlwOEYbd2XuJRweJZh0QYetNLTpQ2TfSAP9cX7lOAE6WSdXChSiWeDxYHAj lbm [file] ICAgICAgICAgICAgICAgICAgICAgICAgICAgICAgICAgICAgICAgICAgICAgICAgICAgDQogICAgICAg ICAgICAgICAgICAgICAgICAgICAgICAgICAgICAgIC AgICAgICAgICAgICAgICAgICAgICAgICAgICAgICAgICAgICAgICAgICAgICAgICAgICAgICAgICAgIC AgDQogICAgICAgICAgICAgICAgICAgICAgICAgICAgICAgICAgICAgICAgICAgICAgICAgICAgICAgIC AgICAgICAgICAgICAgICAgICAgICAgICAgICAgICAg ICAgICAgICAgICAgDQogICAgICAgICAgICAgICAgICAgICAgICAgICAgICAgICAgICAgICAgICAgICAg ICAgICAgICAgICAgICAgICAgICAgICAgICAgICAgICAgICAgICAgICAgICAgICAgICAgICAgDQogICAg ICAgICAgICAgICAgICAgICAgICAgICAgICAgICAgIC AgICAgICAgICAgICAgICAgICAgICAgICAgICAgICAgICAgICAgICAgICAgICAgICAgICAgICAgICAgIC AgICAgDQogICAgICAgICAgICAgICAgICAgICAgICAgICAgICAgICAgICAgICAgICAgICAgICAgICAgIC AgICAgICAgICAgICAgICAgICAgICAgICAgICAgICAg ICAgICAgICAgICAgICAgDQogICAgICAgICAgICAgICAgICAgICAgICAgICAgICAgICAgICAgICAgICAg ICAgICAgICAgICAgICAgICAgICAgICAgICAgICAgICAgICAgICAgICAgICAgICAgICAgICAgICAgDQog ICAgICAgICAgICAgICAgICAgICAgICAgICAgICAgIC AgICAgICAgICAgICAgICAgICAgICAgICAgICAgICAgICAgICAgICAgICAgICAgICAgICAgICAgICAgIC AgICAgICAgDQogICAgICAgICAgICAgICAgICAgICAgICAgICAgICAgICAgICAgICAgICAgICAgICAgIC AgICAgICAgICAgICAgICAgICAgICAgICAgICAgICAg ICAgICAgICAgICAgICAgICAgDQogICAgICAgICAgICAgICAgICAgICAgICAgICAgICAgICAgICAgICAg ICAgICAgICAgICAgICAgICAgICAgICAgICAgICAgICAgICAgICAgICAgICAgICAgICAgICAgICAgICAg ZMv6R5iyJRFiSQCxJI3sHQf3Cm5+OPgOJuQtCFD7to DxcO7ZVY4ke5TnAHuhOCNgq1QlFDe5XM1MQCEpEKusKS8ZQXadxz5GWQKiFQZkxSMCj1bjTiNeBVW1NS NfDresPT6ELIXjU0dueoAzZTGlXRTDCRfjGMMPIZevFXLIMBUeTDWqRyLyMUgiBM0Wb8DozFD9PYy+Pg 0XTL4dq9CjFGyoSHPrWX4twr2ZFSrRXsBtF2ZigxB5 ZAR6FEKzBm9BUFHjKNCunLDfAaGtISGWMeDgN1FanC87VJCERf0+TZaursEyTdiSSnU2BQEli3FmGBi5 RF3ZMZDyCWr8iMAkPWNcQ7Edt2CqKv11BVOuWbdrJfR5QEqnIEOMfIQzPhosQFGqSJDcSL0mWx6oGOSp LBCpAqWtCZBAKM0LHCNdIKPmqVAzVDDlAWGXVN5OWO azOCR0CLIubqIctDToVMqqHR7ZEHSifpYtOdFkQPZPUZz+Zr9AOF3go9PzAPboQrRgVG3ltl9IKKkDEc OcM2O3wDQsU3L6SSxxOv4WMAAgBMDfQfIvGEBLGMliMM7YLX6xzmD0UB1OsRAiWYCzKKTvvXWtYZv6U2 4zcORaUXspWA8QWBT+Shahid+Qg2OKSAyFKWgBQFvDzGs HUAKEhAuR9SyY9KLq0FoT0FyBS75pBmetkIvQKikCQ0LOT9cLXWiKURLYH0DaBWwuG0dypSyNQIzGPBD SbLvM98adOSmXJAnXDV3IDZyTv4UVDOwI0LpfdRcpAuukzRgDQJqWZCZIM2HZHwqrrQaoOXthZpeQK28 jBjvRQ7ZIo3EXpQnRP8hcz5EbEInGk1HCOOtVO3EDO RnSHZkKQDmPDY0PWGjPmObOVtfHMUuDRQxJRD8JLCvFJApDN9SThFtTRQmSiS3PQFrZTFqJQXoab0JSW KnFJVqChFrYLHwFSGlLHJdWNgfXSYyBZJqXEI2MPDkMEGbXN5QNpOsXXFuJDJiSGYvGFXqVVVwls1TOY VhOPJjOaWnSKItHPVgYVRaFIhzKIFjKNN7UCJ8KJQc YKKsQF3JRyVtCLPcIBH3UyKsFVZtLALpyw2PEELiXVJhWOQ8OzNcCLYeZVLiWWvrXMFmFQG0UeamFDNw RRHdTB7TOaZdOTZxITQ4JiaqOTOtQAPdpy4LCPWxIAWrWJM1MYVbDEOkXEXqPQpyCPUrQDPrFjV4RQOv FYKeGL9ZGqZcOOFyTIQ2XPMtUAPvSHTigv5LEDNyQD LxKDx0JIXcYLYeLZNkATcxQMPoKXXrABLeTKKgRGGaIT2AJuBaTPJaDHEsKIZpGEQaIRXhws2ZWMMmPF QgXpDsZmHvLQFrRCPjGJutFWRrQMG1YxKuYGZyPKVdJW7LChHtESDsTvTtNXpbWCFlRJHers2ZZFWaNB BcYOP7JzBiJESkLLArNTirULRqSHR2BDM0SOPrKWWu NQ4ZSwThWNJlJkX9PJPnVWDdLMEzbh3CXOEuTNQtFrQ6MKTeNFIyODQzRPtyJEUqJNB3APGkZOOvRWGu HK1WShEfBIDuYeq4LhVdTZOpRSMplx1ABWFwJYWmDuo7JOHhTBXdZHIpRTq9xcSdgHElSQe2JV1WB2Am xgGlIrjLXb6Kn722HFC7LQTxRv8UV4dmDg3qXNMwKM WWGm8ZDUu2QDD4KYR1SkFeLiEhTBNhBEPqFrUhXkE9FMnhPYKxDwJ+WVsuCwy1JPwaHkS3SKV8BvZ1PO L2BDNmFFQjH5HkPeRuIi0vVWTYBk8+XAezaESqfUolEELLVsI6JWA0QSyxFEZXEc9A ID Date Data Source [id number] 01/17/2021 08:26:58 AM EDT [facility] Name Value Range Interpretation Code Description Data Nilsa rce(s) Supporting Document(s) Progress Note [facility] SQYHLq1sSzYHBcSj39/SELoyYQDyb5VtZVwyGDl4OFofBTUnX8QcHKL5nH1lKVX7KVrGUtEdVoFdOTH4 lbm [file] wVYH4C1cKQa563NsXrAH9jt9HMK10Sq4Gea8ivb14Pb3Z6nrG2iaMqGZi3u/emqOZBc9ZgNy52m31+ELECTRICAL ELECTRONICS TECHNICIAN [file] ICAgICAgICAgICAgICAgICAgICAgICAgICAgICAgIC AgICAgICAgICAgICAgICAgICAgICAgICAgICAgDQogICAgICAgICAgICAgICAgICAgICAgICAgICAgIC AgICAgICAgICAgICAgICAgICAgICAgICAgICAgICAgICAgICAgICAgICAgICAgICAgICAgICAgICAgIC AgICAgICAgICAgDQogICAgICAgICAgICAgICAgICAg ICAgICAgICAgICAgICAgICAgICAgICAgICAgICAgICAgICAgICAgICAgICAgICAgICAgICAgICAgICAg ICAgICAgICAgICAgICAgICAgICAgDQogICAgICAgICAgICAgICAgICAgICAgICAgICAgICAgICAgICAg ICAgICAgICAgICAgICAgICAgICAgICAgICAgICAgIC AgICAgICAgICAgICAgICAgICAgICAgICAgICAgICAgDQogICAgICAgICAgICAgICAgICAgICAgICAgIC AgICAgICAgICAgICAgICAgICAgICAgICAgICAgICAgICAgICAgICAgICAgICAgICAgICAgICAgICAgIC AgICAgICAgICAgICAgDQogICAgICAgICAgICAgICAg ICAgICAgICAgICAgICAgICAgICAgICAgICAgICAgICAgICAgICAgICAgICAgICAgICAgICAgICAgICAg ICAgICAgICAgICAgICAgICAgICAgICAgDQogICAgICAgICAgICAgICAgICAgICAgICAgICAgICAgICAg ICAgICAgICAgICAgICAgICAgICAgICAgICAgICAgIC AgICAgICAgICAgICAgICAgICAgICAgICAgICAgICAgICAgDQogICAgICAgICAgICAgICAgICAgICAgIC AgICAgICAgICAgICAgICAgICAgICAgICAgICAgICAgICAgICAgICAgICAgICAgICAgICAgICAgICAgIC AgICAgICAgICAgICAgICAgDQogICAgICAgICAgICAg ICAgICAgICAgICAgICAgICAgICAgICAgICAgICAgICAgICAgICAgICAgICAgICAgICAgICAgICAgICAg ICAgICAgICAgICAgICAgICAgICAgICAgICAgDQogICAgICAgICAgICAgICAgICAgICAgICAgICAgICAg ICAgICAgICAgICAgICAgICAgICAgICAgICAgICAgIC ZeBSZfFPZtYZRgKJPwPMAlDPXsZNZmBVSwPSRhDCHzIOPcHIObPBa9J8kmZCDzNMLoGW1vXXc2My9+DQ oDYwRmGIU8dlFlzS1GDU6no3KvGLoyFLHoc7EnUOf5BI4CIJKlQPwcIF3ULWeuet9PVLQuWROccLSTm4 fdDvQvTZH4AGOsJepzKS5FSEAmN1pkzaWbSLKbITXM TGyjIGXOZAahWGGYQP3VSxNgF5JlpU48HBOHBx4+GKoortGsYvoAMaRjZTPcg8OdPRt3CP8WCXQhHxwe e9JrZsQrVMEJRGwaDW4OWKI2NIX9WNRhAb0STSWtQ195lbYfRN7TPx9WMbZjGF0qtg1UXqHdXSMuMoqD Stn7ERqwAN4XvGCkWWkCdl7zbaTtagRQa4JkdyZixH CPi4bopG1wIfCTegNslcCmzjxfHARoQIDpWW1jST6pSZPlYLPoYyJ1AITCVI8ERQIxAMPbmQWkRIQwZT FVHO0ZTDkyRSQ3NOCbpsMopZUqLUjaYH7VGHEncfEhAePuRMMBMFr+Re3FWR9dl7AqWWtmJAEqYC2uix 0AOQrJMxUlR3P5rYEiE4G2KOotIe6YZUHiEDFfDvZa FWMAYCceAW9CMM5labM5WJ5LlHKkIXRcGEZtpWNpXKh8L71fqPUnNCqcID7WUEB+Shahid+Rs6BBGSnOYVz DOXqWyDcRZTSFrMgP1UvU5HQi3XtX3DcRR32cZorgrExJRefYN5XKI2iUEWtWIAGNE5JeKGdcT1mjxFp VzHqLMBIYqIzV02deSKnRWNyWLSeBDTcQx3CWMShD7 OexdQkbHhtlsWoJPKgKPMWGR4SGTikkvYgiGJxiDrgSC21nOruKJ9ZAm9HJfEoCV3vko1HtTBlWm2BKH ZbTx8SWXZpTTLgUZHgEQC9XTSvUxLsAXveEKVsXEZrJEH5WPBwXWPdNP4CRdPwDHEoIhD8AmLaBRZwCC Mrmj6POJBfEIBvDSU9BbAfMGYbSLDwOUyvCAFuAXDv TMT6HXDpMSQzSJ7JYiQjFECfATIkSzTiIZMrINXrdr4TYCMqSVDyAwY2SUYjGPIvZRUmPYnkLVSxKIE3 VCE6UFAtUDTyYV9CAzZwAYGoARFnJXFvOGNqGFBbzz9EDYKcXRBbMTM8QGKqUJJaSIQwXVnyCSUiPXN7 VLvnHVNnKEJqVO8OGdHaAGBaUNf0LOMkRQAhLVLbrz 3MDVRrAVOgNDu4VZQnOASsVBErNIreDKKsZML2DVEoCWMfALZkXQ5YDhAuGVZrZZJ0HPNzXRLhMQNkoe 1KRGLwXSObZLY5VkZpRIYwOVCwVBxfRLKnWQZoUejkEVAuOMHdMP0JCtTlRPPkCjE9KBOtXKGfJRNdgm 8IWXMtIGInLlVjJkGbSOUxTUPnEFweMIRkWDKuQvB3 XULeCAZkFD8AYcGqQLJvLuB3JHUtQXFtZZUnzu3AABQnEBCrIqJ8XOUdSYOyPWVmIUpdNDZjMBX1UQCh QXJgRIJpRM5QFbKuVUHuFpP2XGAfTBUwFNHywx6UDLPxLXWkQDO0LvRaVDJeUOBwDHscHUNiPET8IgT2 BNCgXSOaMV1MFuSnXUpzVYHVXyo9RHelF7c3CXErFt 2DM3Tkf7HoBpZhKTUBJEvfYY9vkpNqSSXpOf5HN3iHRrl3YjbwBvL4XCZeVng7Z5CjVCC0BPm1VdYoSX CxFcvfTR5zNPQjGTOmOGB5GOYjNCDcDMSmFfTiGxpnAdO2UGQ6SOSjTrUpVE7TAe7FAwK2KXE5uIUgSu 4ESsH2NEpVOeLcHD4EGNm= ID Date Data Source [id number] 12/15/2020 05:06:00 PM EDT [facility] Performed at: [employer] [address] [id number] Director: Morro Irvin MD, Phone: [phone] Name Value Range Interpretation Code Description Data Nilsa rce(s) Supporting Document(s) 25HYDROXY,VIT D 29 ng/mL . [facility] Reference Range:All Ages: Target levels 30 - 100 25HYDRO. VIT D3 4.8 ng/mL . [facility] This test was developed and its performa nce characteristicsdetermined by [facility]. It has not been cleared or approvedby the Food and Drug Administration. 25HYDRO. VIT D2 24 ng/mL . [facility] This test was developed and its performa nce characteristicsdetermined by [facility]. It has not been cleared or approvedby the Food and Drug Administration. ID Date Data Source [id number] 12/09/2020 09:01:00 AM EDT [facility] Name Value Range Interpretation Code Description Data Nilsa rce(s) Supporting Document(s) ALBUMIN,URINE 111.0 mg/L 5-17 [facility] MICROALB/CREAT 126.1 mg/g CR 0-30 [facility] CREAT. URINE 88.0 mg/dL [facility] ID Date Data Source [id number] 12/09/2020 09:01:00 AM EDT [facility] Name Value Range Interpretation Code Description Data Nilsa rce(s) Supporting Document(s) HbA1C 6.50 % 3.8-5.6 [facility] Suggested Diagnosis HbA1c% Diabet ic >/= 6.5Prediabetes 5.7%-6.4%Normal < 5.7% ID Date Data Source [id number] 12/09/2020 08:47:00 AM EDT [facility] Name Value Range Interpretation Code Description Data Nilsa rce(s) Supporting Document(s) MAGNESIUM 2.0 mg/dL 1.6-2.6 [facility] ID Date Data Source [id number] 12/09/2020 08:47:00 AM EDT [facility] Name Value Range Interpretation Code Description Data Nilsa rce(s) Supporting Document(s) CHOL 153 mg/dL 100-200 [facility] TRIG 169 mg/dL 30-190 [facility] HDL 42 mg/dL 35-65 [facility] LDL DIRECT 87 mg/dL 0-100 [facility] VLDL 24 mg/dL 0-100 [facility] ID Date Data Source [id number] 12/09/2020 08:47:00 AM EDT [facility] Name Value Range Interpretation Code Description Data Nilsa rce(s) Supporting Document(s) GLU 122 mg/dL 70-110 [facility] Patients taking Sulfasalazine may have f alsely depressedGlucose levels. Patients taking Sulfapyridine may havefalsely elevated Glucose levels. Patients should be drawnfor Glucose before the initial administration of eitherdrug. BUN 24 mg/dL 7-23 [facility] CRE 0.869 mg/dL 0.500-1.300 [facility] GFR > 60 mL/min [facility] CHLORIDE 112 mmol/L 99-110 [facility] NA 146 mmol/L 136-147 [facility] POTASSIUM 3.9 mmol/L 3.5-5.1 [facility] TCO2 22 mmol/L 20-33 [facility] ANION GAP 15.9 10.0-20.0 [facility] CA 9.2 mg/dL 8.3-10.7 [facility] ALKALINE PHOS 84 U/L 45-117 [facility] TP 6.6 g/dL 6.0-7.8 [facility] ALB 3.4 g/dL 3.5-5.0 [facility] ESRD Dialysis patient Albumin reference range: 2.9-4.4 g/dL GL 3.2 g/dL 2.3-3.5 [facility] A/G 1.1 1.0-2.5 [facility] [facility] BILIRUBIN 0.3 mg/dL 0.1-1.1 [facility] [place] Total Bilirubin is n ot recommended forpatients undergoing treatment with eltrombopag (Promacta)due to the potential for falsely elevated results. ALTI 32 U/L 6-54 [facility] Patients taking Sulfasalazine and/or Sul fapyridine may havefalsely depressed ALT levels. Patients should be drawn forALT before the initial administration of either drug. AST 18 U/L 8-40 [facility] Patients taking Sulfasalazine and/or Sul fapyridine may havefalsely depressed AST levels. Patients should be drawn forAST before the initial administration of either drug. ID Date Data Source [id number] 12/09/2020 08:33:00 AM EDT [facility] Name Value Range Interpretation Code Description Data Nilsa rce(s) Supporting Document(s) WBC 8.64 x10E3/uL 4.0-10.5 [facility] RBC 4.52 x10E6/uL 4.70-6.00 [facility] Hemoglobin 12.3 g/dL 14.0-18.0 [facility] Hematocrit 37.3 % 42.0-52.0 [facility] MCV 82.5 fL 81.0-99.0 [facility] MCH 27.2 pg 27.0-31.0 [facility] MCHC 33.0 g/dL 32.7-35.6 [facility] RDW 15.9 % 11.5-14.0 [facility] Platelet count 187 x10E3/uL 150-450 [facility] MPV 12.0 fl 6.9-9.5 [facility] Neutrophils 47.4 % 34-64 [facility] Lymphocytes 27.5 % 25-45 [facility] Monocytes 8.4 % 1.7-10.6 [facility] Eosinophils 14.2 % 0.4-7.0 [facility] Basophils 0.9 % 0.1-2.0 [facility] Imm. Gran. 1.6 % 0.1-2.0 [facility] Abs. Neutro. 4.08 x10E3/uL 1.2-7.6 [facility] Abs. Lymph. 2.38 x10E3/uL 1.0-3.5 [facility] Abs. Spink. 0.73 x10E3/uL 0.1-1.0 [facility] Abs. Eosin. 1.23 x10E3/uL 0.1-0.7 [facility] Abs. Baso. 0.08 x10E3/uL 0.0-0.1 [facility] Abs. Imm. Gran. 0.14 x10E3/uL 0.0-0.1 [facility] ANRBC% 0 % 0 [facility] ID Date Data Source [id number] 10/31/2020 11:48:08 AM EDT [facility] Name Value Range Interpretation Code Description Data Nilsa rce(s) Supporting Document(s) Progress Note [facility] JJOKUa6hTlLZXtGj15/RZIixEMIva0MiLKmpMVz9DZqbPAPiP9BwFKZ6lU8fAMS7RMmOHpYvShHpVWDv lbm GuWkpCWyYjPDBfVdwEDnZgAOmwApsyjDKsUL6PzKD8QWTdT64nEJLnEWTeN4XdVZE8AIw+Sz4CKOAdbH HpXP1ZBvjE8Ymzy3z8Mo9+AQ3CrGSgA0VvrTqDQGtR2laqUxWXmS0TvzdEepdF6l0riIqiTk/37JHOX6 6hOtjXn0qJOhOp/F3U03ZPGjP19d+sA0sVStj+139G xtFoKkw072ulCGD6DuGfxFh8zUpuMkIB+wycAy49EmB2i6Kq1FoeGb77EtnOiAsTPnNlbBxdasfH4nnR AFSQ9nEUdUweQ77dQbLxTYqO+Wxsh2evc+BiqVnvWwbjYJXIjIqkI0jWHCvSYZn9JQniBa9axRMCgYYU 54MlrTg6fBm1SnrKjIFAHs5E3Xphqm4zsriRantkFg Eo8o2RurKzLrR4xvnQmS7fTwM26J/2DX5fuKb9U+1J77an3ZskdxArP8OTmeDsxXjc7vnBAw5CPsqc3h SmHLpOx0DAsfAfpUG+6/0BBEVrYl3iXWe/ufLx6cDqOAds/h9XeuHrZLtSr57rTGlrfkaKdURrlNGUC4 dkzDOQFVJ9vl2w5Jy0mNfhE60HTrPlYflSuaFYAQWn eZylCzZL6It3SejwjPXnqY4JWEofy8Gr9csrp2yNxeLgMSCObdlcYFr2wzURGTtiN6pvhCSm4wXw+[facility] [file] DQo+Ev9Jm2UdfmS3tcFqYGyvPUIeNV1EJFSAC5WDHu== ID Date Data Source [id number] 10/18/2020 09:38:20 AM EDT [facility] Name Value Range Interpretation Code Description Data Nilsa rce(s) Supporting Document(s) Progress Note [facility] PSSVNn4aXvQLJlQr80/PDRjlJTJpe1BcPYvtSNz9EOlxOKTrW3CwWLA6dN5cSPC7POsEDyMjChOlPtJv lbm [file] AgICAgICAgICAgICAgICAgICAgICAgICAgICAgICAg ICAgICAgICAgICAgICAgICAgICAgICAgICAgICAgICAgICAgICAgICAgICAgICAgICAgICAgICAgICAg NIAxYXVkUN8CRFIfTCSdQTDbFFAoRJClZGWiKBUkHEIeNLRnPJMzDRPbSHKvFRQwAZNnYWQdAFXnUJQn ICAgICAgICAgICAgICAgICAgICAgICAgICAgICAgIC SzQSXeYHOqWMLdBKChGOOtGD3PWEZrOUDnDNXuRAErYNExVFTnPBYdKDGoSLBlTTKlVLOwKGGzBMHpQL AgICAgICAgICAgICAgICAgICAgICAgICAgICAgICAgICAgICAgICAgICAgICAgICAgICAgICAgICAgIA 0KICAgICAgICAgICAgICAgICAgICAgICAgICAgICAg ICAgICAgICAgICAgICAgICAgICAgICAgICAgICAgICAgICAgICAgICAgICAgICAgICAgICAgICAgICAg ZCTxUMJtYGJhTE7EGCEbNTSlVYPjUFYrXYJwZWXaQILwXCCaZOGuVAXcBRRhTCZpHTQbLYRmLBMzEAZe ICAgICAgICAgICAgICAgICAgICAgICAgICAgICAgIC VvXZGiGSDaMRGiYJVxURUhHGKmCY6ZDDGtOSHeCAAzLGEhJPDpFUHfBGDrPGPyXFKqAXTkFMAlBHOuAQ AgICAgICAgICAgICAgICAgICAgICAgICAgICAgICAgICAgICAgICAgICAgICAgICAgICAgICAgICAgIC OjKY7OVDImHTDpBCCqOCUcEAYtLTHnWSIoYWWrRZKz ICAgICAgICAgICAgICAgICAgICAgICAgICAgICAgICAgICAgICAgICAgICAgICAgICAgICAgICAgICAg DJBgUICpAJMpAKJzLR7HKSWfNRIxJZOzCGAvHXMaPMWkEJGeFGIwMPFaLAOrAMJnSOFkUSYkITCrEORe ICAgICAgICAgICAgICAgICAgICAgICAgICAgICAgIC QwWZNaBZLxRDTpDMBrKMOuTAOvHHRrDI4ZCMRhGFUqGRFhDAOeOVJfRIFmXAHdBWOcIANcRJLqOSOhFX AgICAgICAgICAgICAgICAgICAgICAgICAgICAgICAgICAgICAgICAgICAgICAgICAgICAgICAgICAgIC UkSRKzRX3TSDAmRMAyOJGzPLXtBKZvGZOfFYZuHOUi ICAgICAgICAgICAgICAgICAgICAgICAgICAgICAgICAgICAgICAgICAgICAgICAgICAgICAgICAgICAg IJRzPRDvWFYtJTXeNPJsUZ3JCQ17eQNnr7N9XTMkVJ5xhof/Ds7RSJqqahRmoXJeDN3JXsOqKD6ulf0B IzOfDW3kyg6ZJQeUGnQrB3F4uACjJFIkBKWSWcIxF4 4uHClkIv58UShhZHEeViAlHYs0Ei0RIiThJ6mjJTOsRyP3FBExRdS4KDEtZgH4ZNPhAoHjTRbmTQ7Yf5 VudCAzDQo+Tb4QRD9es1AsDEjgHaVaID8csw5OVMvHFqJkV9JztnA7IKN0NIMfDz5LAVSzHOJhtBFoCI PrXYPFMzZdT5ZtvY23OCGIBp3+DQplbmRvYmoNCjI0 UCPsa9ZgQZz9UE1FMJDbYTq4sQXhNEZcW1Pjx4MbPf24AHApNxvlQjQ8AKneJYNJxMHcPysiEIXrDPNd Dq7hJA1uQOUvIYZ7MvK3YSVNTE2OGWQqMBJvtFDfDLXeCTWZSW9UXHimAMS4ETPjffNhjJMqWCsbIF7U YXJlbnQgMjMgMCBSDQo+Io4BUF9gh3YaPKsfXGNkVW 0qke9VZCiDJcZiE2R9bVPiL0J3IThaQn6VKRNnSOOaAvFcHZYFZBnrGP6NNH4cqwR6CU3YkDYyIEBnCI WdgWOxFJd4V75xiXZvLNqiGP0WMZH+Shahid+Ft2PUHMkPHSwVWXdAfMuYKNTFlWcF0OtS7APn6AuW9ZnMG 95oQuxizTrCNnyYM3PNX0tORBdRDJSHE7PlEOdbJ5m oqYhVmJiLZQLJlDuV74qpMCcUKLnGRRoATCmQx3FSLIyQ9VubzNtwMpmaiTuXGLsFIIVSS9SEWupgmBs vRWcjBdiLU69uEtjCN6CEd9QAgLoJI3kjc9OuAGzKo8QLZXuEg1ZSUYzOGDiWEQfKGL8LQGwEsWjUExm XISkQCXeMSD5TCNhEOZnHW1TCtAbMNGzMfZ0BQdeWW HxZTEkpr7FCTWsNZZlIyZ0NNSaUDLlRWLhZSvoYYYsEOYnTIR2PIFmIMWyPV3UYpAbWVGxAQUwZVxiXJ ExXNNlgv1BTXLbHCBoBjLcOmKcFYCuHZRuWFncKJQrNQX9LQT5MSCsUQWwSY7QYzMrZYOvGNMwUHjfTR HeHEXxxk9AVKQzFTOlGOV0GBYlWZXnHUCgEPeqGGSr XPI4Mxp5UBPrFOTjUF7LJuJxNGUaIRWxEUmuWIRiYHYilh1GFGNpBPAvNIJ5LXJdZUAjMFWdQBteCXYl OWTsBmJ4INHeKTCwFN4FYrYnEZImCPY3VOhkYIAeUMFkol4WFZCrQUBtLHv5TWDeGUCoTHSsZVnhFCGd FHUsHGb4BQRvGNNjJK1NDmHiQXNkUoS6FAhbPKBfZZ Pdbm8CKJMjLCLeZqbbQnIlJNQkCYLaMWmtUIPyDFB0NXXiXNGbIZKgFU6YZgFrZSHkLvGhDXAwVNUbHW Wlok4GZJCqHXMsLTWnOsPrGNAjCKTfZQpnEQWjCJJ5JQU2JKWmMULvSR2VHpLzDXPnCoUxQWbqIFNaGV Ckao1UBEMfJEEgWtL5KRMxZMTtRCFsHYnlIITwUTR5 XOR9GKMuIBVoBA3VTfTgVToxKCZINpb7XVpsK7p8VSCvTf3OI5Dot2AsTuVmAHDWRMtbDU6pobBiNFXf Ci9SS1rNRzy1QLGpPwSfBCitGDEhEHKyHYRlJKzaXzA5ACXoDZDpMV8uCSghSoFyZRKkALY8VPJ6GHMg UoN9XID6CkghG9PyBLWaXbMqJO6SUq0MHhN0IUZ9eNJsGh1FQeR2CWLEGbHbPE0PIXr= ID Date Data Source [id number] 10/10/2020 11:44:52 AM EDT [facility] Name Value Range Interpretation Code Description Data Nilsa rce(s) Supporting Document(s) Progress Note [facility] SJKHCp8mCvLGYkMp54/PUEqtGJJxj5GpFXsmHEj0YLrrBUOrW9IjXXM9nU8zENO8NWmXIhXsQsHoNfCt lbm [file] TcAjVrHkOSNsUVR2NkK4YTDsXxUgNY8OBv5ZKlA7OKN7aCEpBg2VRuVfIMlGJrMlLP4WEWv= ID Date Data Source [id number] 09/29/2020 12:52:45 PM EDT [facility] Name Value Range Interpretation Code Description Data Nilsa rce(s) Supporting Document(s) Progress Note [facility] MTGGTe8yKrHGCfXu64/EPSzmEHZje1GjJGcmAHf5COulZZDdZ3WpIBO8sJ8jQOR2BZsYErEcYmVhAxDs lbm UaRowGQoNvMBYwVboLZkXoSOojYvkmqXTfXZ5SbZX5GTMsZ01nAHFnXAOyO0IeJWL9BrI+Vw4NZZOpkY AdHC4LEneH1Gapv2e2Qs9duS3FhNLuOvdlZjWOBDfZiw6RteaYne2rQSZ9kSjZ0n711a7uejpNG43zFO hghxAV7mT5M+xDweqCilAnTSoG1r//IcdKUkpJ+l/1 ajXzlXgq448l5YNIa2d4s4Uu4FQlxax5grBEsw5/2P0PsUegTTEOrq/E0RCYUZOGBY9CsXarlJcOq+jr xbDoOUhPmhpFE89x6h8ZLTJXHDr8219p+F3lVLLtDdAiEcgiJx1yT+BLASAytQerp9c1rd3Tws1ErSej CbuqettQMJFh1eOr/JtwDhgyjX7m6ahJaDOc/glvXg IgPD3PlZqJRhTqG1c4jG5tFDK7Ug+llucDeVt1nggsNV+A4RmshbEaSWvrBJB9yGs6dp6w2lSGZ+PRcm Kjbq9C73xrlMVNNXUxlr3FSa5hPpz5PL9XG39wQKZKus/carmen+1vDrIBcqr5BFNv2EMPUJdQiNrfXlp/40 [file] RiNIC3VBO+GR7bLXy+Dr5Uj0WggxO8muKaSUdaMIAcRz2ZIZLRN5AKBd== ID Date Data Source [id number] 09/28/2020 01:21:17 PM EDT [facility] Name Value Range Interpretation Code Description Data Nilsa rce(s) Supporting Document(s) Operative Note [facility] MNQWLh2zImKUMtRh39/ZEYmuOHFtz3PpGXjlXHq0KTltZPEsR5KhXOQ7eQ7rZJZ8EYbMStFaMjBdSbXa lbm [file] AvRjAgMTAgMCBSDQogICAgICAvRjEgMTMgMCBSDQog LCThRCFzUbHkFAQfVIWYJl9UUiEdYYZoRQ5jjbLezUY1VDC+Lz0YCITlBG1PfPAWL6RepOOqWBolP9NI IJ6ANAG2SQ2GaTGmDC7OwTJWT6RnlUXjDb8vUNPya3PrJy7sB3NWCZDFCGRwQYvySSjeSZNtHHk2W3W1 RGJpT4ENG459xRNweLf0Ba5cY5KHWBxZVfLfEMghEC jgZEScIQz9P2G0FFNzH0OEN2AmHqDiqgXnN4A+XjHfQQAMBU4NLZPQPCe4N1S5xPCpW5L6lSmObHI0KT 1YJJ9IvIDluWFsv96+RiGSKdIzOMLlS9INGAZSNyVrXCaiADorNUDvLTs7F7W7RQEbE5HUE9eqN3h9DZ 4+PeZYJpEmXUUlVg6GLsJdEe0HUuReYN4zdc8EMVxu HCPmRkgWBas1P9hpebl5bMZfSrV3W1B8FiJ1fMQaPO1FG2H2sFGtXGH7OQZqlFB+Ko9Tk0OhNNJmWSd2 F3csNIJfYOHrUzIarE98R++4zmfxlSC4A5v7DRZXkXPznDeIxuYiW7iRSQR0v5L6IYo/Fu4DEAU6sBk9 tJWeMMBaEPt5tK9zfYa0WyMxLJ90PVRnJTfdnP1kTz v6K5Srn9QpTn9fCe1nmPRvBf7JMeWoDCF6veSdOlSLGgB3dCdlkimwRHZ8N3g9pCJ3Bf89h2leywHyo8 XiDzA5FBhxBKKsHlOjquMvNKO9jiKibC8qtxNiTg2AUJQsAYyfmdNrOwRKJd4BNtHzFK52JyzaeA8pkF E+DQogICAgICAgICAgICAgICAgICAgICAgICAgICAg ICAgICAgICAgICAgICAgICAgICAgICAgICAgICAgICAgICAgICAgICAgICAgICAgICAgICAgICAgICAg ICAgICAgICAgICAgDQogICAgICAgICAgICAgICAgICAgICAgICAgICAgICAgICAgICAgICAgICAgICAg ICAgICAgICAgICAgICAgICAgICAgICAgICAgICAgIC AgICAgICAgICAgICAgICAgICAgICAgDQogICAgICAgICAgICAgICAgICAgICAgICAgICAgICAgICAgIC AgICAgICAgICAgICAgICAgICAgICAgICAgICAgICAgICAgICAgICAgICAgICAgICAgICAgICAgICAgIC AgICAgDQogICAgICAgICAgICAgICAgICAgICAgICAg ICAgICAgICAgICAgICAgICAgICAgICAgICAgICAgICAgICAgICAgICAgICAgICAgICAgICAgICAgICAg ICAgICAgICAgICAgICAgDQogICAgICAgICAgICAgICAgICAgICAgICAgICAgICAgICAgICAgICAgICAg ICAgICAgICAgICAgICAgICAgICAgICAgICAgICAgIC AgICAgICAgICAgICAgICAgICAgICAgICAgDQogICAgICAgICAgICAgICAgICAgICAgICAgICAgICAgIC AgICAgICAgICAgICAgICAgICAgICAgICAgICAgICAgICAgICAgICAgICAgICAgICAgICAgICAgICAgIC AgICAgICAgDQogICAgICAgICAgICAgICAgICAgICAg ICAgICAgICAgICAgICAgICAgICAgICAgICAgICAgICAgICAgICAgICAgICAgICAgICAgICAgICAgICAg ICAgICAgICAgICAgICAgICAgDQogICAgICAgICAgICAgICAgICAgICAgICAgICAgICAgICAgICAgICAg ICAgICAgICAgICAgICAgICAgICAgICAgICAgICAgIC AgICAgICAgICAgICAgICAgICAgICAgICAgICAgDQogICAgICAgICAgICAgICAgICAgICAgICAgICAgIC AgICAgICAgICAgICAgICAgICAgICAgICAgICAgICAgICAgICAgICAgICAgICAgICAgICAgICAgICAgIC AgICAgICAgICAgDQogICAgICAgICAgICAgICAgICAg ICAgICAgICAgICAgICAgICAgICAgICAgICAgICAgICAgICAgICAgICAgICAgICAgICAgICAgICAgICAg MDGmDHEcXIKoYWYzFBCuOVBrFNLeMEy1L2gwCHCeNGUrPL1ySLr4Lp2+LJaWHtXdQVT4pxEvpP5WDI0k e6UtLBkrPPAxe8XwCFc8BY5SPCPlMBseCN3UDWckyx 6NMZAuGDKhuMIUd5ydBbJpLON5DELnHrtrER5UEURtR4hxylWsYTDeEHKVMSclVDOGRC0PWtTmM8GqkB 18KZEYXt3+SHvxpyOsYvrTFxP2WLAjl4LbSCm2BK8HLTYpNhrzb8VcWwGmQLEBXKvaIJ1PIYK2MMElWR EwPf6NPWXqP537klKkLL0FAx4ABkEwLC1ksa6DRxCp TGBiXsvONul6KUgkJT9XkNVkAJtXwWDaOAZkfgLhRn26UKJeuWKJyCdvGxWhRh9tLGerdvBpxvabputn HZUnVBTnXu8yNF0zFUMsOGLrVmX3KKDUKX0ZVUYmFDXlaABnOYHgUUMICN9DZQzzYWC0PIDzwtHroNSl JYrkVN7XXDTbuhVxJRoxKPPUHFr+Dc0OWR9qg1XwLW rdCDMiOD7xmi1QPOrWVeUjE1K5wEMlW2O6VRvuGa9ZUAQbDGWqBJpkUNARZFppCJ1DAP4bzhW9UV0NhI PvHIPdRKMkeSKgPTb2U37fsWNlRTuyPU3SBIN+Shahid+Yz2FUDGyPDFhBYShOcPuWLNPTwGtO7GcS6DJi3 GwN0SpDY55pFlmmkPuIBzpFW4CUI0tSEBiLHNDKN9M tLOknG1kwgKjBTEcTTHCFbLeD34gzLQzMOYsYTA1MAGgIh6HHVSbF6JnxwEbvHaemdScDPLlGVVNKA5N MXjerxHmeZBeoTzrSS96qVigWJ6MLv5USvOxWM1mqh7RqXScAx5WGIBqVx6ZLYQnOJKaFUNeHPA4CTQf SxZzKNzgTNSpQNNhOVC6HLBkZGXrKZ9VPnTrXTPyIV yyBKYuXCFgZIFrpi1MFODrYGHnNMHwPdNmKIFuUKZxERidDIIgNOWvOJY3YCByKTWhRF2JDoTqMHPhZZ J9KdIhVRNoRJFnch1XLLSjRJHnMby2BzLyNQMnWXRbPVzeXNIhJSJ3PRHsYMYoVSIpSL3YQyIbVBKbXC XjTODsIIXyMWKaqg9ZCXRkOAKdIjQdPSShVZNpQSGh DVtgFBHkJDG8UHPpZVKmZQOrNY0ZZiUjRFKgBFP6DYFhMAWaIPSjsg7JYENnKHIkAgL5LCNjHLTqNVAo PPldSTRePRA9AtDrULStUHHhLN1OLyLvZSWjDRg9LkFeFXMwANTfsa3TYKVaKAQgACf8GBPeBDDnGXIw FZmzDVBaRSV8HSj3AWFcKPImFL9QYgIfFUWpJZipNg JdVIAmWXLnog4ZZKSdNYAsVEF5LrNgGQFhDBJsDIxxHNDqEHFrISP0ZCCeJYWaPC8KFtAjOOBvQLPtFI hsUZDsNCYyiu6UZRJoUQDdNWF0UhGvWIZwOCJbPBr2psNrbGJmQDn2PK2AU1SamcXrMsFKPk9Pv485EV RdGZKxJt8EE3ybFi5zDFFtACQNJg9VGGx0V8QfHWWa GjHuWKCbY8W5TPZzVYk6BQumEWe7APIuSSC+GQchV7YoUCWqTDX1HJHuIZP8ZoO4NkfcOZLyOoY9HIHw WB8uSPOYMt0+SMnaeJZnpPtyWWZREyKhEbJ2AOjvUQLOXy0I ID Date Data Source [id number] 09/28/2020 01:06:24 PM EDT [facility] Name Value Range Interpretation Code Description Data Nilsa rce(s) Supporting Document(s) Glucose [Mass/volume] in Capillary blood by Glucometer 104 mg/dL 70- 140 [facility] ID Date Data Source [id number] [facility] Interpretation Code Description Data Nilsa rce(s) Supporting Document(s) History and Physical [facility] REZKQp9wTtHGIpKp33/EOSqyYPCww9TgHGoyAEu3LJhnFDOwQ8YgLEU2jW3xTYG0JTgXFvKdXtSaObDc lbm [file] ID Date Data Source [id number] 09/28/2020 09:08:37 AM EDT [facility] Name Value Range Interpretation Code Description Data Nilsa rce(s) Supporting Document(s) Glucose [Mass/volume] in Capillary blood by Glucometer 119 mg/dL 70- 140 [facility] ID Date Data Source [id number] 09/23/2020 10:03:00 AM EDT [facility] Name Value Range Interpretation Code Description Data Nilsa rce(s) Supporting Document(s) LCOVID-19 RHEONIX ASSAY Negative [facility] This lab was ordered by [facility] and reported by [facility]. ID Date Data Source [id number] 09/23/2020 10:00:00 PM EDT [facility] Name Value Range Interpretation Code Description Data Nilsa rce(s) Supporting Document(s) COVID19 RHEONIX Negative [facility]GATIVE [facility] The Rheonix COVID-19 MDx Assay is an end point RT-PCR assayintended for the qualitative detection of nucleic acid ajzeOQNE-GvS-9 virus. Positive results are indicative of thepresence of SARS-CoV-2 RNA; clinical correlation withpatient history and other diagnostic information isnecessary to determine patient infection status. Negativeresults do not preclude SARS-CoV-2 infection and should notbe used as the sole basis for patient management decisions. The Rheonix MDx Assay is only for use under the Food andDrug Administration's Emergency Use Authorization. ID Date Data Source [id number] 09/20/2020 09:39:00 AM EDT [facility] Name Value Range Interpretation Code Description Data Nilsa rce(s) Supporting Document(s) Progress Note [facility] RKETGg0uHyQKAsQe59/BNEgqJZIpy6KhVJhwGFt1EBbyOZGtE8LcXHW2cV5mINA6XLqYXhVsQjZxEaAp [facility] [file] [id number] ID Date Data Source [id number] 09/16/2020 10:00:00 AM EDT [facility] Name Value Range Interpretation Code Description Data Nilsa rce(s) Supporting Document(s) LCOVID-19 RHEONIX ASSAY Negative [facility] This lab was ordered by [facility] and reported by [facility]. ID Date Data Source [id number] 09/16/2020 05:28:00 PM EDT [facility] Name Value Range Interpretation Code Description Data Nilsa rce(s) Supporting Document(s) COVID19 RHEONIX Negative NEGATIVE N [facility] The Rheonix COVID-19 MDx Assay is an end point RT-PCR assayintended for the qualitative detection of nucleic acid vwvqEFVL-VqL-9 virus. Positive results are indicative of thepresence of SARS-CoV-2 RNA; clinical correlation withpatient history and other diagnostic information isnecessary to determine patient infection status. Negativeresults do not preclude SARS-CoV-2 infection and should notbe used as the sole basis for patient management decisions. The Rheonix MDx Assay is only for use under the Food andDrug Administration's Emergency Use Authorization. ID Date Data Source [id number] 09/15/2020 01:52:00 PM EDT [facility] Name Value Range Interpretation Code Description Data Nilsa rce(s) Supporting Document(s) GLUCOSE 118 mg/dL 74-106 Above high normal [facility] BLOOD UREA NITROGEN 24 mg/dL 7-18 Above high normal [facility] CREATININE 0.91 mg/dL 0.55-1.30 Normal (applies to non-numeric resul ts) [facility] It has been demonstrated with our tanika looney's methodologyfor CREATININE testing that patients on N-Acetylcysteineand/or Metamizole (Dipyrone) therapy will show falselydepressed values. eGFR 92 mL/min >60 Normal (applies to non-numeric resul ts) [facility] SODIUM 139 mmol/L 136-145 Normal (applies to non-numeric resul ts) [facility] POTASSIUM 5.0 mmol/L 3.5-5.1 Normal (applies to non-numeric resul ts) [facility]. CHLORIDE 105 mmol/L 96-109 Normal (applies to non-numeric resul ts) [facility]. CARBON DIOXIDE 30 mmol/L 21-32 Normal (applies to non-numeric r esults) [facility]. ANION GAP 4 mmol/L 3-11 Normal (applies to non-numeric resul ts) [facility]. CALCIUM 9.3 mg/dL 8.1-9.7 Normal (applies to non-numeric resul ts) [facility]. ALBUMIN 3.7 gm/dL 3.4-5.0 Normal (applies to non-numeric resul ts) [facility]. TOTAL PROTEIN 7.2 g/dL 6.4-8.2 Normal (applies to non-numeric re sults) [facility] BILIRUBIN,TOTAL 0.5 mg/dL 0.2-1.0 Normal (applies to non-numeric results) [facility] It has been demonstrated use of our TOTA L BILIRUBIN assay isnot recommended for patients undergoing treatment withELTROMBOPAG due to the potential for falsely elevatedresults. SGOT/AST 31 U/L 15-37 Normal (applies to non-numeric resul ts) [facility]. SGPT/ALT 45 U/L 12-78 Normal (applies to non-numeric resul ts) [facility]. ALK. PHOSPHATASE 76 U/L 45-117 Normal (applies to non-numeric results) [facility] ID Date Data Source [id number] 09/15/2020 01:52:00 PM EDT [facility] Name Value Range Interpretation Code Description Data Nilsa rce(s) Supporting Document(s) MAGNESIUM 2.3 mg/dL 1.8-2.4 Normal (applies to non-numeric resul ts) [facility] ID Date Data Source [id number] 09/15/2020 12:45:00 PM EDT [facility] Name Value Range Interpretation Code Description Data [place] rce(s) Supporting Document(s) WHITE BLOOD COUNT 8.07 x10E3/ul 3.80-10.80 Normal (applie s to non-numeric results) [facility] RED BLOOD COUNT 5.12 x10E6/ul 4.69-6.13 Normal (applies to non-n umeric results) [facility] HEMOGLOBIN 13.7 g/dl 14.1-18.1 Below low normal [facility] HEMATOCRIT 43.5 % 43.5-53.7 Normal (applies to non-numeric resul ts) [facility] MEAN CELL VOLUME 85 fl 80-97 Normal (applies to non-numeric results) [facility] MEAN CORPUSCULAR HEMOGLOBIN 26.8 pg 27.0-31.2 Below low normal [facility] MEAN CORPUSCULAR HGB CONC 31.5 g/dl 31.8-35.4 Below low normal [facility] RBC DISTR.WIDTH 14.6 % 9.0-16.0 Normal (applies to non-numeric results) [facility] PLATELET COUNT 235 x10E3/ul 150-400 Normal (applies to non-numeric results) [facility] MEAN PLATELET VOLUME 12.7 fl 7.2-11.1 Above high normal [facility] NEUT % 63.6 % 37.0-74.9 Normal (applies to non-numeric resul ts) [facility]. LYMPH % 16.1 % 10.0-50.0 Normal (applies to non-numeric resul ts) [facility] MONO % 9.7 % 0.0-12.0 Normal (applies to non-numeric resul ts) [facility] EOS % 9.3 % 0.0-7.0 Above high normal [facility]. BASO % 0.7 % 0.0-2.5 Normal (applies to non-numeric resul ts) [facility] IMMATURE GRAN % 0.6 % 0-2 Normal (applies to non-numeric results) [facility] NUCLEATED RBC % 0 % 0-0 Normal (applies to non-numeric results) [facility] NEUT # 5.1 X10E3/ul 2.0-6.9 Normal (applies to non-numeric res ults) [facility]. LYMPH # 1.3 X10E3/ul 0.6-3.4 Normal (applies to non-numeric res ults) [facility] MONO # 0.8 X10E3/ul 0.0-0.9 Normal (applies to non-numeric res ults) [facility] EOS # 0.8 X10E3/ul 0.0-0.7 Above high normal [facility] BASO # 0.1 X10E3/ul 0.0-0.2 Normal (applies to non-numeric res ults) [facility] IG # 0.1 X10E3/ul 0.0-0.5 Normal (applies to non-numeric res ults) [facility]. NUCLEATED RBC # 0.0 X10E3/ul 0.0-0.5 Normal (applies to non-numeri c results) [facility]. ID Date Data Source MAGNESIUM 09/15/2020 12:00:00 AM EDT eCW1 ([facility]) Name Value Range Interpretation Code Description Data Nilsa rce(s) Supporting Document(s) 2.3 1.8-2.4 MAGNESIUM eCW1 ([facility]) ID Date Data Source [id number] 05/24/2020 12:58:00 PM EST [facility] Name Value Range Interpretation Code Description Data Nilsa rce(s) Supporting Document(s) [id number] RNA POSITIVE Negative Above high normal [facility]. Called results to [facility] result jake ectly read back? Y Testing was performed using the Ku6 COVID-19 MDx Assay.This test has been authorized by FDA under an ( EmergencyUse Authorization ), EUA, for use by authorized laboratoriesfor individuals who are suspected of COVID-19 by theirhealthcare provider. This test is only authorized for theduration of the declaration that circumstances existjustifying the authorization of emergency use of in vitrodiagnostic tests for detection and/or diagnosis [id number]. Methodology: Endpoint RT-PCR Fact Sheets: https://www.fda.gov/media/462835/download https://www.fda.gov/media/964814/download *THIS IS A [facility] REPORTABLE COMMUNICABLE DISEASE* Positive results are indicative of the presence [id number]; clinical correlation with patient history andother diagnostic information is necessary to determinepatient infection status. The agent detected may not be thedefinite cause of disease. Positive results do not rule outbacterial infection or co-infection with other viruses. ID Date Data Source [id number] 05/23/2020 12:00:00 AM EST [facility] Name Value Range Interpretation Code Description Data [facility] rce(s) Supporting Document(s) SARS-CoV2 Rapid PCR Positive [facility] This lab was ordered by [facility] and reported by [facility]. ID Date Data Source [id number] 05/05/2020 02:00:00 PM EST [employer]. MRI OF THE BRAIN WITHOUT CONTRASTCompari son is made to 10/10/15.There are no focal lesions of abnormal increased or decreased signalintensity. There is no mass, mass effect, midline shift, extra-axialfluid collection or intracranial hemorrhage. The ventricles are normalsize and configuration. The craniocervical junction is within normallimits. Normal flow voids are present within the major intracranialvessels. No acute infarction is identified. The orbits areunremarkable. Mild mucosal thickening is present at the ethmoidal aircells and minimally at bilateral maxillary sinuses.IMPRESSION: INTR ACRANIALLY UNREMARKABLE MRI OF THE BRAIN. MILDETHMOIDAL AND MINIMAL BILATERAL MAXILLARY SINUS DISEASE.Dictated on 05/05/20 1400 by Oscar Steiner M.D.Transcribed on 05/06/20 0639 by Sara Davisign by Oscar Steiner M.D. on 05/06/20 0919Sign by: Oscar Steiner M.D. Name Value Range Interpretation Code Description Data [facility]ilsa rce(s) Supporting Document(s) ID Date Data Source [id number] 05/05/2020 12:21:00 PM EST [facility] Name Value Range Interpretation Code Description Data Nilsa rce(s) Supporting Document(s) URINE MICROALBUMIN 1280 ug/mL 0-30 Above high normal [facility] URINE CREATININE 77.50 mg/dL 20-320 Normal (applies to non-numeri c results) [facility] MICROALBUMIN CREATININE RATIO 1650.0 ug/mgCRE No rmal (applies to non-numeric results) [facility] ID Date Data Source [id number] 05/11/2020 09:10:00 AM EST [facility] Name Value Range Interpretation Code Description Data Nilsa rce(s) Supporting Document(s) 25-HYDROXY, VITAMIN D 22 ng/mL . Below low normal [facility] Reference Range:All Ages: Target levels 30 - 100 25-HYDROXY, VITAMIN D-2 <1.0 ng/mL . Normal (applies to non- numeric results) [facility] This test was developed and its performa nce characteristicsdetermined by [facility]. It has not been cleared or approvedby the Food and Drug Administration. 25-HYDROXY, VITAMIN D3 22 ng/mL . Normal (applies to non-n umeric results) [facility] This test was developed and its performa nce characteristicsdetermined by [facility]. It has not been cleared or approvedby the Food and Drug Administration.Performed at: [employer] [address] [id number] Director: Morro Irvin MD, Phone: [phone] ID Date Data Source [id number] 05/05/2020 12:41:00 PM EST [place] [facility] [employer]. IS PATIENT FASTING? (Y/N): Y IS PATIENT FASTING? (Y/N): Y IS PATIENT FASTING? (Y/N): Y Name Value Range Interpretation Code Description Data Nilsa rce(s) Supporting Document(s) MAGNESIUM 2.0 mg/dL 1.8-2.4 Normal (applies to non-numeric resul ts) [facility] ID Date Data Source [id number] 05/05/2020 12:41:00 PM EST [facility] [employer] IS PATIENT FASTING? (Y/N): Y IS PATIENT FASTING? (Y/N): Y IS PATIENT FASTING? (Y/N): Y Name Value Range Interpretation Code Description Data Nilsa rce(s) Supporting Document(s) GLUCOSE 298 mg/dL 74-106 Above high normal [facility] BLOOD UREA NITROGEN 11 mg/dL 7-18 Normal (applies to non-nume chad results) [facility] CREATININE 0.97 mg/dL 0.55-1.30 Normal (applies to non-numeric resul ts) [facility]. It has been demonstrated with our tanika looney's methodologyfor CREATININE testing that patients on N-Acetylcysteineand/or Metamizole (Dipyrone) therapy will show falselydepressed values. eGFR 86 mL/min >60 Normal (applies to non-numeric resul ts) [facility]. SODIUM 140 mmol/L 136-145 Normal (applies to non-numeric resul ts) [facility] POTASSIUM 4.4 mmol/L 3.5-5.1 Normal (applies to non-numeric resul ts) [facility]. CHLORIDE 102 mmol/L 96-109 Normal (applies to non-numeric resul ts) [facility]. CARBON DIOXIDE 32 mmol/L 21-32 Normal (applies to non-numeric r esults) [facility]. ANION GAP 6 mmol/L 3-11 Normal (applies to non-numeric resul ts) [facility]. CALCIUM 8.9 mg/dL 8.1-9.7 Normal (applies to non-numeric resul ts) [facility]. ALBUMIN 3.7 gm/dL 3.4-5.0 Normal (applies to non-numeric resul ts) [facility]. TOTAL PROTEIN 7.3 g/dL 6.4-8.2 Normal (applies to non-numeric re sults) [facility]. BILIRUBIN,TOTAL 0.5 mg/dL 0.2-1.0 Normal (applies to non-numeric results) [facility] It has been demonstrated use of our TOTA L BILIRUBIN assay isnot recommended for patients undergoing treatment withELTROMBOPAG due to the potential for falsely elevatedresults. SGOT/AST 28 U/L 15-37 Normal (applies to non-numeric resul ts) [facility]. SGPT/ALT 41 U/L 12-78 Normal (applies to non-numeric resul ts) [facility]. ALK. PHOSPHATASE 79 U/L 45-117 Normal (applies to non-numeric results) [facility] ID Date Data Source [id number] 05/05/2020 12:41:00 PM EST [facility]. IS PATIENT FASTING? (Y/N): Y IS PATIENT FASTING? (Y/N): Y IS PATIENT FASTING? (Y/N): Y Name Value Range Interpretation Code Description Data Nilsa rce(s) Supporting Document(s) CHOLESTEROL 196 mg/dL <200 Normal (applies to non-numeric resu lts) [facility] TRIGLYCERIDES 176 mg/dL Normal (applies to non-numeric re sults) [facility] TRIGLYCERIDES EXPECTED VALUESThe [facility] Cholesterol Education Program Adult TreatmentPanel III provides the following catagories of triglyceridesconcentrations: Normal: <150 mg/dLBorderline High: 150 - 199 mg/dL High: 200 - 499 mg/dL Very High: > or = 500 mg/dLIt has been demonstrated with our laboratory's methodologyfor TRIGLYCERIDE testing that patients on N-Acetylcysteineand/or Metamizole (Dipyrone) therapy will show falselydepressed values. HDL CHOLESTEROL 49 mg/dL 40-60 Normal (applies to non-numeric results) [facility] DIRECT LDL CHOLESTEROL 117 mg/dL <100 Normal (applies to non-n umeric results) [facility] EXPECTED VALUESThe [place] Cholesterol Education Program Adult TreatmentPanel III provides the following classifications of LDL-Cconcentrations: Optimal: < 100 mg/dLNear Optimal/Above Optimal: 100 - 129 mg/dL Borderline High: 130 - 159 mg/dL High: 160 - 189 mg/dL Very High: > or = 190 mg/dLIt has been demonstrated with our laboratory's methodologyfor LDL testing that patients on Metamizole (Dipyrone)therapy will show falsely depressed values. CHOL. RISK RATIO 4.0 RATIO 3.7-6.7 Normal (applies to non-numeric results) [facility] ID Date Data Source [id number] 05/05/2020 12:13:00 PM EST [facility] Name Value Range Interpretation Code Description Data Nilsa rce(s) Supporting Document(s) HEMOGLOBIN,GLYCATED (A1C) 9.9 4.2-6.3 Above high normal [facility] ID Date Data Source [id number] 05/05/2020 11:41:00 AM EST [facility] Name Value Range Interpretation Code Description Data Nilsa rce(s) Supporting Document(s) WHITE BLOOD COUNT 8.20 x10E3/ul 3.80-10.80 Normal (applie s to non-numeric results) [facility] RED BLOOD COUNT 5.21 x10E6/ul 4.69-6.13 Normal (applies to non-n umeric results) [facility] HEMOGLOBIN 13.5 g/dl 14.1-18.1 Below low normal [facility] HEMATOCRIT 43.6 % 43.5-53.7 Normal (applies to non-numeric resul ts) [facility] MEAN CELL VOLUME 84 fl 80-97 Normal (applies to non-numeric results) [facility] MEAN CORPUSCULAR HEMOGLOBIN 25.9 pg 27.0-31.2 Below low normal [facility] MEAN CORPUSCULAR HGB CONC 31.0 g/dl 31.8-35.4 Below low normal [facility] RBC DISTR.WIDTH 14.4 % 9.0-16.0 Normal (applies to non-numeric results) [facility] PLATELET COUNT 198 x10E3/ul 150-400 Normal (applies to non-numeric results) [facility] MEAN PLATELET VOLUME 12.4 fl 7.2-11.1 Above high normal [facility] GRAN % 61.7 % 37.0-74.9 Normal (applies to non-numeric resul ts) [facility]. LYMPH % 19.0 % 10.0-50.0 Normal (applies to non-numeric resul ts) [facility]. MONO % 7.2 % 0.0-12.0 Normal (applies to non-numeric resul ts) [facility] EOS % 10.5 % 0.0-7.0 Above high normal [facility]. BASO % 0.7 % 0.0-2.5 Normal (applies to non-numeric resul ts) [facility]. IMMATURE GRAN % 0.9 % 0-2 Normal (applies to non-numeric results) [facility] NUCLEATED RBC % 0 % 0-0 Normal (applies to non-numeric results) [facility]. GRAN # 5.1 X10E3/ul 2.0-6.9 Normal (applies to non-numeric res ults) [facility]. LYMPH # 1.6 X10E3/ul 0.6-3.4 Normal (applies to non-numeric res ults) [facility]. MONO # 0.6 X10E3/ul 0.0-0.9 Normal (applies to non-numeric res ults) [facility] EOS # 0.9 X10E3/ul 0.0-0.7 Above high normal [facility] BASO # 0.1 X10E3/ul 0.0-0.2 Normal (applies to non-numeric res ults) [facility]. IG # 0.1 X10E3/ul 0.0-0.5 Normal (applies to non-numeric res ults) [facility] NUCLEATED RBC # 0.0 X10E3/ul 0.0-0.5 Normal (applies to non-numeri c results) [facility] ID Date Data Source [id number] 04/26/2020 06:29:00 PM [facility] Name Value Range Interpretation Code Description Data Nilsa rce(s) Supporting Document(s) Hemoglobin A1C % Less than 5.7% Above high normal [facility] HBA1C: Normal: Less than 5.7% Prediabetes: 5.7% to 6.4% Diabetes: 6.5% or higher HA1C % vs Estimated Average Glucose (eAG) % eAG % eAG 6% 126 mg/dL 10% 240 mg/dL 7% 154 mg/dL 11% 269 mg/dL 8% 183 mg/dL 12% 298 mg/dL 9% 212 mg/dL Reference: [place] [employer], 2017 ID Date Data Source [id number] 04/26/2020 06:09:00 PM [facility] Name Value Range Interpretation Code Description Data Nilsa rce(s) Supporting Document(s) Sodium 137 mmol/L 137-145 Normal (applies to non-numeric resul ts) [facility] Potassium 3.5-5.1 Normal (applies to non-numeric resul ts) [facility] Chloride 102 mmol/L 98-112 Normal (applies to non-numeric resul ts) [facility] Carbon Dioxide CO2 22.0-33.0 Normal (applies to non-numer ic results) [facility] Anion Gap 4.0-11.0 Normal (applies to non-numeric resul ts) [facility] BUN 16 mg/dL 9-20 Normal (applies to non-numeric resul ts) [facility] Creatinine 0.80-1.50 Normal (applies to non-numeric resul ts) [facility] GFR 73 mL/min >60 Normal (applies to non-numeric resul ts) [facility] Result based on MDRD formula. Glucose Level 355 mg/dL 74-99 Above high normal [facility] The reference range is only applicable w hen fasting. Calcium-Uncorrected 8.4-10.2 Normal (applies to non-nume chad results) [facility] Corrected Calcium 8.4-10.2 Normal (applies to non-numeri c results) [facility] ID Date Data Source [id number] 04/26/2020 06:10:00 PM EST [facility] Name Value Range Interpretation Code Description Data Nilsa rce(s) Supporting Document(s) Triglycerides 246 mg/dL 0-150 Above high normal [facility] Cholesterol 173 mg/dL 0-200 Normal (applies to non-numeric resu lts) [facility] LDL Cholesterol,Direct 94 mg/dL <100 Normal (applies to non-n umeric results) [facility] LDL Interpretative Data Optimal <100 (mg/dL) Near optimal 100-129 (mg/dL) Borderline High 130-159 (mg/dL) High 160-189 (mg/dL) Very High >190 (mg/dL) HDL Cholesterol 56 mg/dL 40-60 Normal (applies to non-numeric results) [facility] CHOL/HDL Ratio Normal (applies to non-numeric r esults) [facility] NATIONAL CHOLESTEROL GUIDEL [facility] ([facility]) guidelines for classificaton, testing and management of cholesterol levels in adults over 20 years of age. This new classification creates three categories of risk for coronary heart disease, regardless of age or sex, according to total amd LDL cholesterols levels: Based on total cholesterol level Desirable <200 mg/dl Borderline-high 200-239 mg/dl High >=240 mg/dl Based on cholesterol ratio CHD RISK CHOL/HDL RATIO MALE FEMALE 0.5 x Average 3.4 3.3 1.0 x Average 5.0 4.4 2.0 x Average 9.6 7.1 3.0 x Average 13.5 11.0 ID Date Data Source [id number] 02/07/2020 02:52:00 PM EST [employer]. PORTABLE CHESTComparison: 09/27/18Findi ngs: The heart size is within normal limits. Pulmonary vessels arenormal. Low lung volumes. Clear lungs otherwise. No pleural effusion.No acute or focal osseous abnormality.IMPRESSION: NO ACTIVE DISEASE IS SEEN IN THE CHEST.Dictated on 02/07/20 1452 by Pavel Fraga M.D.Transcribed on 02/08/20 1114 by Vinnie Davis by Pavel Fraga M.D. on 02/10/20 1004Sign by: Pavel Fraga M.D. Name Value Range Interpretation Code Description Data Nilsa rce(s) Supporting Document(s) ID Date Data Source [id number] 02/07/2020 02:51:00 PM EST [employer]. CT SCAN OF THE HEAD WITHOUT IV CONTRASTC omparison: 09/27/18Findings: No acute intracranial hemorrhage, midline shift, mass effector abnormal extra-axial fluid. Garcia-white differentiation is normal.Symmetric ventricles without hydrocephalous. Patent basal cisterns.Well-aerated paranasal sinuses and mastoid air cells.IMPRESSION: NO ACUTE INTRACRANIAL ABNORMALITY.Dictated on 02/07/20 1451 by Pavel Fraga M.D.Transcribed on 02/08/20 1110 by Vinnie Davis by Pavel Fraga M.D. on 02/10/20 1004Sign by: Pavel Fraga M.D. Name Value Range Interpretation Code Description Data Nilsa rce(s) Supporting Document(s) ID Date Data Source [id number] 02/07/2020 03:28:00 PM EST [facility] [employer]. Collected by: see chart Name Value Range Interpretation Code Description Data Nilsa rce(s) Supporting Document(s) ETHYL ALCOHOL < 10 mg/dl 0-10.0 Normal (applies to non-numeric re sults) [facility] <10 mg/ml = None detected. >200mg/dl ma y be toxic. ID Date Data Source [id number] 02/07/2020 03:28:00 PM EST [place] [facility] [employer]. Collected by: see chart Name Value Range Interpretation Code Description Data Nilsa rce(s) Supporting Document(s) GLUCOSE 251 mg/dL 74-106 Above high normal [facility] BLOOD UREA NITROGEN 27 mg/dL 7-18 Above high normal [facility] CREATININE 1.08 mg/dL 0.55-1.30 Normal (applies to non-numeric resul ts) [facility] It has been demonstrated with our tanika looney's methodologyfor CREATININE testing that patients on N-Acetylcysteineand/or Metamizole (Dipyrone) therapy will show falselydepressed values. eGFR 76 mL/min >60 Normal (applies to non-numeric resul ts) [facility] SODIUM 139 mmol/L 136-145 Normal (applies to non-numeric resul ts) [facility] POTASSIUM 4.5 mmol/L 3.5-5.1 Normal (applies to non-numeric resul ts) [facility] CHLORIDE 108 mmol/L 96-109 Normal (applies to non-numeric resul ts) [facility] CARBON DIOXIDE 26 mmol/L 21-32 Normal (applies to non-numeric r esults) [facility] ANION GAP 5 mmol/L 3-11 Normal (applies to non-numeric resul ts) [facility] CALCIUM 9.6 mg/dL 8.1-9.7 Normal (applies to non-numeric resul ts) [facility] ALBUMIN 3.9 gm/dL 3.4-5.0 Normal (applies to non-numeric resul ts) [facility] TOTAL PROTEIN 7.4 g/dL 6.4-8.2 Normal (applies to non-numeric re sults) [facility] BILIRUBIN,TOTAL 0.4 mg/dL 0.2-1.0 Normal (applies to non-numeric results) [facility] It has been demonstrated use of our TOTA L BILIRUBIN assay isnot recommended for patients undergoing treatment withELTROMBOPAG due to the potential for falsely elevatedresults. SGOT/AST 20 U/L 15-37 Normal (applies to non-numeric resul ts) [facility] SGPT/ALT 41 U/L 12-78 Normal (applies to non-numeric resul ts) [facility] ALK. PHOSPHATASE 63 U/L 45-117 Normal (applies to non-numeric results) [facility] ID Date Data Source [id number] 02/07/2020 03:28:00 PM EST [facility] [employer] Collected by: see chart Name Value Range Interpretation Code Description Data Nilsa rce(s) Supporting Document(s) THYROID STIMULATING HORMONE 1.82 uIU/mL 0.36-3.74 Norm al (applies to non-numeric results) [facility] ID Date Data Source [id number] 02/07/2020 03:19:00 PM EST [facility] [employer] Collected by: see chart Name Value Range Interpretation Code Description Data Nilsa rce(s) Supporting Document(s) AMPHETAMINES, URINE QUAL Negative Negative Normal (applies to non-numeric results) [facility] THC URINE QUALITATIVE Negative Negative Normal (applies to non-numeric results) [facility] COCAINE, URINE QUAL Negative Negative Normal (applies to non-nume chad results) [facility] OPIATES (MORPHINE), UR QUAL Negative Negative Norm al (applies to non-numeric results) [facility] PHENCYCLIDINE,QUAL URINE Negative Negative Normal (applies to non-numeric results) [facility] BARBITURATES, URINE QUAL Negative Negative Normal (applies to non-numeric results) [facility] BENZODIAZEPINES, UR QUAL Negative Negative Normal (applies to non-numeric results) [facility] METHADONE, URINE QUAL Negative Negative Normal (applies to non-numeric results) [facility] The following threshold concentrations h ave beenestablished: Amphetamines/Methamphetamine 1000 ng/mLTHC (19-arb-miqgk9-YNW-8-Kbrdgoitiy Acid) 50 ng/mLCocaine (Benzoylecgonine) 300 ng/mLOpiates (Morphine) 300 ng/mLPhencyclidine 25 ng/mLBarbiturates 200 ng/mLBenzodiazepines 200 ng/mLMethadone 300 ng/mL These tests provides only screening test results.A more specific alternate chemical method must beused in order to obtain a confirmed analytical result.Clinical consideration and professional judgment shouldbe applied to any drug of abuse test result, particularlywhen positive results are obtained. Confirmatory tests will be done only at the [facility].Positive specimens will be saved 72 hours. ID Date Data Source [id number] 02/07/2020 03:09:00 PM EST [facility] Collected by: see chart Collected by: see chart Name Value Range Interpretation Code Description Data Nilsa rce(s) Supporting Document(s) URINE RBC Rare (1-5) /hpf Normal (applies to non-numeric results) [facility] URINE EPITHELIAL CELLS Rare (1-5) /hpf Normal (a pplies to non-numeric results) [facility] URINE HYALINE CAST Rare (1-5) /hpf Normal (applies to non- numeric results) [facility] URINE AMORPHOUS URATES Present Normal (applies to non-n umeric results) [facility] ID Date Data Source [id number] 02/07/2020 03:09:00 PM EST [facility] Collected by: see chart Collected by: see chart Name Value Range Interpretation Code Description Data Nilsa rce(s) Supporting Document(s) URINE COLOR Yellow Normal (applies to non-numeric resu lts) [facility] URINE APPEARANCE Clear Normal (applies to non-numeric results) [facility] URINE PH 5.5 6.0-8.5 Below low normal [facility] SPECIFIC GRAVITY,URINE >= 1.030 1.000-1.0330 Normal (a pplies to non-numeric results) [facility] URINE GLUCOSE (UA) >=1000 mg/dl Negative Above high normal [facility] URINE BILIRUBIN Small mg/dl Negative Above high normal [facility] URINE KETONE Trace mg/dl Negative Above high normal [facility] URINE BLOOD Small /ul Negative Above high normal [facility] URINE PROTEIN, RANDOM 100 mg/dl Negative Above high normal [facility] URINE UROBILINOGEN 0.2 mg/dl 0.0-0.2 Normal (applies to non-numer ic results) [facility] URINE NITRITE Negative Negative Normal (applies to non-numeric re sults) [facility] URINE LEUKOCYTE ESTERASE Negative /ul Negative Normal (applies to non-numeric results) [facility] ID Date Data Source [id number] 02/07/2020 02:37:00 PM EST [facility] Collected by: see chart Name Value Range Interpretation Code Description Data Nilsa rce(s) Supporting Document(s) WHITE BLOOD COUNT 10.69 x10E3/ul 3.80-10.80 Normal (applie s to non-numeric results) [facility] RED BLOOD COUNT 5.40 x10E6/ul 4.69-6.13 Normal (applies to non-n umeric results) [facility] HEMOGLOBIN 14.5 g/dl 14.1-18.1 Normal (applies to non-numeric resul ts) [facility] HEMATOCRIT 43.7 % 43.5-53.7 Normal (applies to non-numeric resul ts) [facility] MEAN CELL VOLUME 81 fl 80-97 Normal (applies to non-numeric results) [facility] MEAN CORPUSCULAR HEMOGLOBIN 26.9 pg 27.0-31.2 Below low normal [facility] MEAN CORPUSCULAR HGB CONC 33.2 g/dl 31.8-35.4 Normal (applies to non-numeric results) [facility] RBC DISTR.WIDTH 14.4 % 9.0-16.0 Normal (applies to non-numeric results) [facility] PLATELET COUNT 205 x10E3/ul 150-400 Normal (applies to non-numeric results) [facility] MEAN PLATELET VOLUME 12.3 fl 7.2-11.1 Above high normal [facility] GRAN % 65.4 % 37.0-74.9 Normal (applies to non-numeric resul ts) [facility] LYMPH % 16.1 % 10.0-50.0 Normal (applies to non-numeric resul ts) [facility] MONO % 9.6 % 0.0-12.0 Normal (applies to non-numeric resul ts) [facility] EOS % 6.4 % 0.0-7.0 Normal (applies to non-numeric resul ts) [facility]. BASO % 0.8 % 0.0-2.5 Normal (applies to non-numeric resul ts) [facility]. IMMATURE GRAN % 1.7 % 0-2 Normal (applies to non-numeric results) [facility] NUCLEATED RBC % 0 % 0-0 Normal (applies to non-numeric results) [facility]. GRAN # 7.0 X10E3/ul 2.0-6.9 Above high normal [facility] LYMPH # 1.7 X10E3/ul 0.6-3.4 Normal (applies to non-numeric res ults) [facility]. MONO # 1.0 X10E3/ul 0.0-0.9 Above high normal [facility] EOS # 0.7 X10E3/ul 0.0-0.7 Normal (applies to non-numeric res ults) [facility]. BASO # 0.1 X10E3/ul 0.0-0.2 Normal (applies to non-numeric res ults) [facility]. IG # 0.2 X10E3/ul 0.0-0.5 Normal (applies to non-numeric res ults) [facility] NUCLEATED RBC # 0.0 X10E3/ul 0.0-0.5 Normal (applies to non-numeri c results) [facility] ID Date Data Source [id number] 02/07/2020 02:30:00 PM EST [facility] Name Value Range Interpretation Code Description Data Nilsa rce(s) Supporting Document(s) GLUCOSE BY METER 247 mg/dl 70-100 Above high normal [facility] Procedure Social History Code Duration Value Status Description Data Source(s ) Smoking 01/04/2021 12:00:00 AM EDT Never Smoker completed Never S maribelker eCW1 ([facility]) Smoking 01/03/2021 12:00:00 AM EDT Never Smoker completed Never S moker eCW1 ([facility]) Smoking 01/03/2021 12:00:00 AM EDT Never Smoker completed Never S moker eCW1 ([facility]) Smoking 01/03/2021 12:00:00 AM EDT Never Smoker completed Never S moker eCW1 ([facility]) Smoking 01/03/2021 12:00:00 AM EDT Never Smoker completed Never S moker eCW1 ([facility]) Smoking 11/28/2020 12:00:00 AM EDT Never Smoker completed Never S moker eCW1 ([facility]) Smoking 11/28/2020 12:00:00 AM EDT Never Smoker completed Never S moker eCW1 ([facility]) Smoking 11/28/2020 12:00:00 AM EDT Never Smoker completed Never S moker eCW1 ([facility]) Alcohol intake 10/31/2020 12:00:00 AM EDT Lifetime non-drinker (finding) completed Lifetime non-drinker (finding) [facility] Tobacco use and exposure 10/31/2020 12:00:00 AM EDT Never used co mpleted Never used [facility] Smoking 10/31/2020 12:00:00 AM EDT Never smoker completed Never s [facility] Alcohol intake 10/17/2020 12:00:00 AM EDT Lifetime non-drinker (finding) completed Lifetime non-drinker (finding) [facility] Alcohol intake 10/10/2020 12:00:00 AM EDT Lifetime non-drinker (finding) completed Lifetime non-drinker (finding) [facility] Smoking 10/07/2020 12:00:00 AM EDT Never Smoker completed Never S moker eCW1 ([facility]) Smoking 10/07/2020 12:00:00 AM EDT Never Smoker completed Never S moker eCW1 ([facility]) Smoking 10/07/2020 12:00:00 AM EDT Never Smoker completed Never S moker eCW1 ([facility]) Smoking 10/07/2020 12:00:00 AM EDT Never Smoker completed Never S moker eCW1 ([facility]) Smoking 09/15/2020 12:00:00 AM EDT Never Smoker completed Never S moker eCW1 ([facility]) Smoking 09/15/2020 12:00:00 AM EDT Never Smoker completed Never S moker eCW1 ([facility]) Smoking 09/15/2020 12:00:00 AM EDT Never Smoker completed Never S moker eCW1 ([facility]) Smoking 08/17/2020 12:00:00 AM EDT Never Smoker completed Never S moker eCW1 ([facility]) Smoking 08/17/2020 12:00:00 AM EDT Never Smoker completed Never S moker eCW1 ([facility]) Smoking 08/17/2020 12:00:00 AM EDT Never Smoker completed Never S moker eCW1 ([facility]) Smoking 08/17/2020 12:00:00 AM EDT Never Smoker completed Never S moker eCW1 ([facility]) Smoking 08/17/2020 12:00:00 AM EDT Never Smoker completed Never S moker eCW1 ([facility]) Smoking 08/17/2020 12:00:00 AM EDT Never Smoker completed Never S moker eCW1 ([facility]) Smoking 07/27/2020 12:00:00 AM EDT Never Smoker completed Never S moker eCW1 ([facility]) Smoking 07/27/2020 12:00:00 AM EDT Never Smoker completed Never S moker eCW1 ([facility]) Smoking 07/27/2020 12:00:00 AM EDT Never Smoker completed Never S moker eCW1 ([facility]) Smoking 06/23/2020 12:00:00 AM EDT Never Smoker completed Never S moker eCW1 ([facility]) Smoking 06/23/2020 12:00:00 AM EDT Never Smoker completed Never S moker eCW1 ([facility]) Smoking 06/23/2020 12:00:00 AM EDT Never Smoker completed Never S moker eCW1 ([facility]) Smoking 05/17/2020 12:00:00 AM EST Never Smoker completed Never S moker eCW1 ([facility]) Smoking 05/17/2020 12:00:00 AM EST Never Smoker completed Never S moker eCW1 ([facility]) Smoking 05/17/2020 12:00:00 AM EST Never Smoker completed Never S moker eCW1 ([facility]) Smoking 05/17/2020 12:00:00 AM EST Never Smoker completed Never S moker eCW1 ([facility]) Smoking 05/17/2020 12:00:00 AM EST Never Smoker completed Never S moker eCW1 ([facility]) Smoking 05/17/2020 12:00:00 AM EST Never Smoker completed Never S moker eCW1 ([facility]) Smoking 04/28/2020 12:00:00 AM EST Never Smoker completed Never S moker eCW1 ([facility]) Smoking 04/15/2020 12:00:00 AM EST Never Smoker completed Never S moker eCW1 ([facility]) Smoking 04/15/2020 12:00:00 AM EST Never Smoker completed Never S moker eCW1 ([facility]) Smoking 03/15/2020 12:00:00 AM EST Never Smoker completed Never S moker eCW1 ([facility]) Smoking 02/19/2020 12:00:00 AM EST Never Smoker completed Never S moker eCW1 ([facility]) Smoking 02/04/2020 12:00:00 AM EST Never Smoker completed Never S moker eCW1 ([facility]) Smoking 02/04/2020 12:00:00 AM EST Never Smoker completed Never S moker eCW1 ([facility]) Vital Signs ID Date Data Source UNK Name Value Range Interpretation Code Description Data Source(s) Body height 66 [in_i] 66 [in_i] eCW1 ([facility]) Body height 167.64 cm 167.64 cm eCW1 ([facility]) Body weight 200 [lb_av] 200 [lb_av] eCW1 ([facility]) Body weight 90.72 kg 90.72 kg eCW1 ([facility]) Body mass index (BMI) [Ratio] 32.28 kg/m2 32.28 kg/m2 eCW1 ([facility]) Body temperature 98.1 [degF] 98.1 [degF] eCW1 ( [facility]) Heart rate 72 /min 72 /min eCW1 ([facility]) Respiratory rate 16 /min 16 /min eCW1 ([facility]) Body height 67.5 [in_i] 67.5 [in_i] eCW1 ([facility]) Body weight 243.5 [lb_av] 243.5 [lb_av] eCW1 ([facility]) Body mass index (BMI) [Ratio] 37.57 kg/m2 37.57 kg/m2 eCW1 ([facility]) Systolic blood pressure 102 mm[Hg] 102 mm[Hg] e CW1 ([facility]) Diastolic blood pressure 76 mm[Hg] 76 mm[Hg] eCW1 ([facility]) Respiratory rate 16 /min 16 /min eCW1 ([facility]) Body temperature 96.9 [degF] 96.9 [degF] eCW1 ( [facility]) Body height 67.5 [in_i] 67.5 [in_i] eCW1 ([facility]) Body mass index (BMI) [Ratio] 37.25 kg/m2 37.25 kg/m2 eCW1 ([facility]) Systolic blood pressure 110 mm[Hg] 110 mm[Hg] e CW1 ([facility]) Diastolic blood pressure 68 mm[Hg] 68 mm[Hg] eCW1 ([facility]) Body weight 241.4 [lb_av] 241.4 [lb_av] eCW1 ([facility]) Heart rate 77 /min 77 /min eCW1 ([facility]) Heart rate 84 /min 84 /min eCW1 ([facility]) Respiratory rate 16 /min 16 /min eCW1 ([facility]) Body height 67.5 [in_i] 67.5 [in_i] eCW1 ([facility]) Body weight 242 [lb_av] 242 [lb_av] eCW1 ([facility]) Body mass index (BMI) [Ratio] 37.34 kg/m2 37.34 kg/m2 eCW1 ([facility]) Systolic blood pressure 122 mm[Hg] 122 mm[Hg] e CW1 ([facility]) Diastolic blood pressure 90 mm[Hg] 90 mm[Hg] eCW1 ([facility]) Heart rate 84 /min 84 /min [facility]CW1 [facility] Respiratory rate 16 /min 16 /min eCW1 ([facility]) Body height 67.5 [in_i] 67.5 [in_i] eCW1 ([facility]) Body weight 247 [lb_av] 247 [lb_av] eCW1 ([facility]) Body mass index (BMI) [Ratio] 38.11 kg/m2 38.11 kg/m2 eCW1 ([facility]) Systolic blood pressure 128 mm[Hg] 128 mm[Hg] e CW1 ([facility]) Diastolic blood pressure 82 mm[Hg] 82 mm[Hg] eCW1 ([facility]) Heart rate 86 /min 86 /min eCW1 ([facility]) Respiratory rate 16 /min 16 /min eCW1 ([facility]) Body height 67.5 [in_i] 67.5 [in_i] eCW1 ([facility]) Body weight 247 [lb_av] 247 [lb_av] eCW1 ([facility]) Body mass index (BMI) [Ratio] 38.11 kg/m2 38.11 kg/m2 eCW1 ([facility]) Systolic blood pressure 126 mm[Hg] 126 mm[Hg] e CW1 ([facility]) Diastolic blood pressure 84 mm[Hg] 84 mm[Hg] eCW1 ([facility]) Heart rate 88 /min 88 /min eCW1 ([facility]) Respiratory rate 16 /min 16 /min eCW1 ([facility]) Body height 67.5 [in_i] 67.5 [in_i] eCW1 ([facility]) Body weight 247 [lb_av] 247 [lb_av] eCW1 ([facility]) Body mass index (BMI) [Ratio] 38.11 kg/m2 38.11 kg/m2 eCW1 ([facility]) Systolic blood pressure 140 mm[Hg] 140 mm[Hg] e CW1 ([facility]) Diastolic blood pressure 92 mm[Hg] 92 mm[Hg] eCW1 ([facility]) Heart rate 84 /min 84 /min eCW1 ([facility]) Respiratory rate 16 /min 16 /min eCW1 ([facility]) Body height 67.5 [in_i] 67.5 [in_i] eCW1 ([facility]) Body weight 248 [lb_av] 248 [lb_av] eCW1 ([facility]) Body mass index (BMI) [Ratio] 38.26 kg/m2 38.26 kg/m2 eCW1 ([facility]) Systolic blood pressure 114 mm[Hg] 114 mm[Hg] e CW1 ([facility]) Diastolic blood pressure 78 mm[Hg] 78 mm[Hg] eCW1 ([facility]) Heart rate 88 /min 88 /min eCW1 ([facility]) Respiratory rate 16 /min 16 /min eCW1 ([facility]) Body height 67.5 [in_i] 67.5 [in_i] eCW1 ([facility]) Body weight 248 [lb_av] 248 [lb_av] eCW1 ([facility]) Body mass index (BMI) [Ratio] 38.26 kg/m2 38.26 kg/m2 eCW1 ([facility]) Systolic blood pressure 146 mm[Hg] 146 mm[Hg] e CW1 ([facility]) Diastolic blood pressure 82 mm[Hg] 82 mm[Hg] eCW1 ([facility]) Heart rate 91 /min 91 /min eCW1 ([facility]) Respiratory rate 18 /min 18 /min eCW1 ([facility]) Body height 67.5 [in_i] 67.5 [in_i] eCW1 ([facility]) Body weight 240 [lb_av] 240 [lb_av] eCW1 ([facility]) Body temperature 96.1 [degF] 96.1 [degF] eCW1 ( [facility]) Body mass index (BMI) [Ratio] 37.03 kg/m2 37.03 kg/m2 eCW1 ([facility]) Systolic blood pressure 148 mm[Hg] 148 mm[Hg] e CW1 ([facility]) Diastolic blood pressure 90 mm[Hg] 90 mm[Hg] eCW1 ([facility]) Heart rate 96 /min 96 /min eCW1 ([facility]) Respiratory rate 16 /min 16 /min eCW1 ([facility]) Body height 67.5 [in_i] 67.5 [in_i] eCW1 ([facility]) Body weight 245 [lb_av] 245 [lb_av] eCW1 ([facility]) Body mass index (BMI) [Ratio] 37.80 kg/m2 37.80 kg/m2 eCW1 ([facility]) Systolic blood pressure 144 mm[Hg] 144 mm[Hg] e CW1 ([facility]) Diastolic blood pressure 98 mm[Hg] 98 mm[Hg] eCW1 ([facility]) Heart rate 82 /min 82 /min eCW1 ([facility]) Respiratory rate 16 /min 16 /min eCW1 ([facility]) Body height 67.5 [in_i] 67.5 [in_i] eCW1 ([facility]) Body weight 245 [lb_av] 245 [lb_av] eCW1 ([facility]) Body mass index (BMI) [Ratio] 37.80 kg/m2 37.80 kg/m2 eCW1 ([facility]) Systolic blood pressure 148 mm[Hg] 148 mm[Hg] e CW1 ([facility]) Diastolic blood pressure 88 mm[Hg] 88 mm[Hg] eCW1 ([facility]) ID Date Data Source [id number] 09/30/2020 09:09:58 AM EDT [facility] Name Value Range Interpretation Code Description Data Source(s) TRANSFER FROM [facility] ID Date Data Source [id number] 09/28/2020 02:23:10 PM EDT [facility] Name Value Range Interpretation Code Description Data Source(s) WEIGHT RECORDED 248 lb 248 lb [facility] Body height Measured 66 in 66 in [facility] Patient Treatment Plan of Care Planned Activity Planned Date Details Description Data Source (s) FreeStyle Lite Strips [facility] 12/30/2020 12:00:00 AM EDT eCW1 ([facility]) FreeStyle Lite Strips [facility] 12/30/2020 12:00:00 AM EDT eCW1 ([facility]) FreeStyle Lite Strips [facility] 12/30/2020 12:00:00 AM EDT eCW1 ([facility]) FreeStyle Lite Strips [facility] 12/30/2020 12:00:00 AM EDT eCW1 ([facility]) Pen Needle 31g 6mm 12/21/2020 12:00:00 AM EDT eCW1 ([facility]) Pen Needle 31g 6mm 12/21/2020 12:00:00 AM EDT eCW1 ([facility]) Proparacaine hydrochloride 5 MG/ML Ophthalmic Solution 10/31/2020 09:45:00 AM [facility] Phenylephrine Hydrochloride 25 MG/ML Ophthalmic Soluti on 10/31/2020 09:45:00 AM [facility] Tropicamide 10 MG/ML Ophthalmic Solution 10/31/2020 09:45:00 AM [facility] Carboxymethylcellulose Sodium 1 % Ophthalmic Solution 10/31/2020 12:00:00 AM EDT [facility] Proparacaine hydrochloride 5 MG/ML Ophthalmic Solution 10/17/2020 09:30:00 AM [facility] Acetazolamide 250 MG Oral Tablet 10/17/2020 12:00:00 AM [facility] latanoprost 0.05 MG/ML Ophthalmic Solution 10/17/2020 12:00:[address] [facility] Proparacaine hydrochloride 5 MG/ML Ophthalmic Solution 10/10/2020 11:00:00 AM [facility] Brimonidine tartrate 1 MG/ML Ophthalmic Solution 10/10/2020 10:15:0 0 AM [facility] dorzolamide-timolol (COSOPT) 22.3-6.8 MG/ML ophthalmic solution 1 drop 10/10/2020 10:15:00 AM [facility] Acetazolamide 250 MG Oral Tablet 10/10/2020 10:00:00 AM [facility] Proparacaine hydrochloride 5 MG/ML Ophthalmic Solution 10/10/2020 09:30:00 AM [facility] Phenylephrine Hydrochloride 25 MG/ML Ophthalmic Soluti on 10/10/2020 09:30:00 AM [facility] Tropicamide 10 MG/ML Ophthalmic Solution 10/10/2020 09:30:00 AM [facility] Dorzolamide HCl-Timolol Mal 22.3-6.8 MG/ML Ophthalmic Solution (Cosopt) 10/10/2020 12:00:00 AM [facility] Brimonidine tartrate 2 MG/ML Ophthalmic Solution 10/10/2020 12:00:0 0 AM [facility] Acetazolamide 250 MG Oral Tablet 10/10/2020 12:00:00 AM [facility] Acetazolamide 250 MG Oral Tablet 10/10/2020 12:00:00 AM [facility] Brimonidine tartrate 2 MG/ML Ophthalmic Solution 10/10/2020 12:00:0 0 AM [facility] Dorzolamide HCl-Timolol Mal 22.3-6.8 MG/ML Ophthalmic Solution (Cosopt) 10/10/2020 12:00:00 AM [facility] Ondansetron 4 MG Disintegrating Oral Tablet 10/05/2020 12:00:00 AM EDT eCW1 ([facility]) Atropine Sulfate 10 MG/ML Ophthalmic Solution 09/30/2020 12:00:00 A M [facility] Ofloxacin 3 MG/ML Ophthalmic Solution 09/30/2020 12:00:00 AM [facility] bevacizumab-awwb (MVASI) 3.25 mg/0.13 mL intravitreal injection 1.25 mg 09/12/2020 04:30:00 PM [facility] bevacizumab-awwb (MVASI) 3.25 mg/0.13 mL intravitreal injection 1.25 mg 09/12/2020 04:30:00 PM [facility] Lidocaine Hydrochloride 0.035 MG/MG Ophthalmic Gel 09/12/2020 04 :19:42 PM [facility] Proparacaine hydrochloride 5 MG/ML Ophthalmic Solution 09/12/2020 04:19:42 PM [facility] Lidocaine Hydrochloride 0.035 MG/MG Ophthalmic Gel 09/12/2020 04 :19:41 PM [facility] Proparacaine hydrochloride 5 MG/ML Ophthalmic Solution 09/12/2020 04:19:41 PM [facility] Proparacaine hydrochloride 5 MG/ML Ophthalmic Solution 09/12/2020 03:00:00 PM [facility] Phenylephrine Hydrochloride 25 MG/ML Ophthalmic Soluti on 09/12/2020 03:00:00 PM [facility] Tropicamide 10 MG/ML Ophthalmic Solution 09/12/2020 03:00:00 PM [facility] Meclizine Hydrochloride 25 MG Oral Tablet 08/25/2020 12:00:00 AM ED T eCW1 ([facility]) Meclizine Hydrochloride 25 MG Oral Tablet 08/25/2020 12:00:00 AM ED T eCW1 ([facility]) Hydrocortisone/Neomycin/Polymyxin B, Otic 1%-0.35%-100 00 units/mL 05/18/2020 12:00:00 AM EST eCW1 ([facility]) Hydrocortisone/Neomycin/Polymyxin B, Otic 1%-0.35%-100 00 units/mL 05/18/2020 12:00:00 AM EST eCW1 ([facility]) Hydrocortisone/Neomycin/Polymyxin B, Otic 1%-0.35%-100 00 units/mL 05/18/2020 12:00:00 AM EST eCW1 ([facility]) Hydrocortisone/Neomycin/Polymyxin B, Otic 1%-0.35%-100 00 units/mL 05/18/2020 12:00:00 AM EST eCW1 ([facility]) Hydrocortisone/Neomycin/Polymyxin B, Otic 1%-0.35%-100 00 units/mL 05/18/2020 12:00:00 AM EST eCW1 ([facility]) Hydrocortisone/Neomycin/Polymyxin B, Otic 1%-0.35%-100 00 units/mL 05/18/2020 12:00:00 AM EST eCW1 ([facility]) Ofloxacin 3 MG/ML Otic Solution 05/17/2020 12:00:00 AM EST eCW1 ([facility]) Ofloxacin 3 MG/ML Otic Solution 05/17/2020 12:00:00 AM EST eCW1 ([facility]) Ofloxacin 3 MG/ML Otic Solution 05/17/2020 12:00:00 AM EST eCW1 ([facility]) Ofloxacin 3 MG/ML Otic Solution 05/17/2020 12:00:00 AM EST eCW1 ([facility]) Ofloxacin 3 MG/ML Otic Solution 05/17/2020 12:00:00 AM EST eCW1 ([facility]) Ofloxacin 3 MG/ML Otic Solution 05/17/2020 12:00:00 AM EST eCW1 ([facility]) WHEAT DEXTRIN 3500 MG Oral Powder [Benefiber] 04/28/2020 12:00:00 A M EST eCW1 ([facility]) Loperamide Hydrochloride 2 MG Oral Tablet [Imodium] 04/28/19 12:00:00 AM EST eCW1 ([facility] [employer] [facility]) doxycycline hyclate 100 MG Oral Capsule 04/15/2020 12:00:00 AM EST eCW1 ([facility]) doxycycline hyclate 100 MG Oral Capsule 04/15/2020 12:00:00 AM EST eCW1 ([facility]) silver sulfadiazine 10 MG/ML Topical Cream [SSD] 02/19/2020 12:00:0 0 AM EST eCW1 ([facility])
[2021-01-27 13:30] VITALS: BP 130/65
--- NOTE | 2021-01-27 19:07 | ECGEPIP ---
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
== END 2021-01-27 14:13 | disposition home or self-care (01) ==
LOC: M ED 11:11
DX: R55 Syncope and collapse (principal); I44.4 Left anterior fascicular block; R94.31 Abnormal electrocardiogram [ECG] [EKG]; E11.9 Type 2 diabetes mellitus without complications